=== PATIENT | female | born 1965 ===

== ENCOUNTER 2016-06-04 07:17 | Day surgery (SDC) | payer OTHER ==
[2016-06-04 07:28] VITALS: BMI 33.6
[2016-06-04 08:18] LABS: EOS # 0.3 K/uL (0.0-0.7); HEMATOCRIT 36.9 % (34.0-47.0); LYMPH # 0.2 K/uL (1.0-4.3); LYMPH % 3.8 % (20.0-40.0); MEAN CELL VOLUME 89.6 fl (81.0-99.0); MEAN CORPUSCULAR HEMOGLOBIN 29.8 pg (27.0-31.0); MEAN CORPUSCULAR HGB CONC 33.2 g/dL (33.0-37.0); MEAN PLATELET VOLUME 8.7 fl (7.2-11.7); MONO # 0.3 K/uL (0.0-0.8); NEUT # 5.5 K/uL (1.8-7.0); NRBC % 0.2 % (0.0-0.0); PLATELET COUNT 303 K/uL (130-400); RED CELL DISTRIBUTION WIDTH 13.3 % (11.5-14.5); WHITE BLOOD COUNT 6.4 K/uL (4.8-10.8)
[2016-06-04 08:32] LABS: PARTIAL THROMBOPLASTIN TIME 21.1 SECONDS (23.3-32.5)
[2016-06-04 08:34] LABS: ALB/GLOB RATIO 1.3 (1.0-2.1); ALKALINE PHOSPHATASE 59 U/L (38-126); ALT/SGPT 23 U/L (9-52); AST/SGOT 28 U/L (14-36); BILIRUBIN,TOTAL 0.4 mg/dl (0.2-1.3); BLOOD UREA NITROGEN 15 mg/dl (7-17); CALCIUM 9.7 mg/dL (8.4-10.2); CARBON DIOXIDE 24 mmol/L (22-30); CHLORIDE 103 mmol/L (98-107); GFR AFRICAN-AMERICAN > 60; GLUCOSE,RANDOM 104 mg/dL (65-105); POTASSIUM 4.5 MMOL/L (3.6-5.0); SODIUM 136 mmol/l (132-148); TOTAL PROTEIN 7.2 G/DL (6.3-8.2)
[2016-06-04 09:25] LABS: ERYTHROCYTE SEDIMENTATION RATE 34 mm/hr (0-20)
[2016-06-04] MEDS ORDERED: Lidocaine 1% Inj (20ml) ONE (10:25)
[2016-06-04] MEDS ORDERED: Absorbable Gelatin Sponge Size 12-7 ONE (10:26)
[2016-06-04] MEDS ORDERED: Midazolam 2 MG/2 ML VIAL ONE (10:37)
[2016-06-04 10:56] VITALS: RESP 18
[2016-06-04] MEDS ORDERED: Lactated Ringer's 1,000 ML IV ONE (11:15)
--- NOTE | 2016-06-04 11:43 | PCM.SURG1 ---
Surgeon's Initial Post Op Note - Surgeon's Notes Surgeon: Shivam Time Stamp Assembler: None Type of Anesthesia: Local Pre-Operative Diagnosis: Liver lesions Operative Findings: Liver lesions Post-Operative Diagnosis: Liver lesions Operation Performed: Liver lesion biopsy from the left lobe Specimen/Specimens Removed: 18G core biopsy samples obtained. Estimated Blood Loss: EBL {In ML}: 1 Date of Surgery/Procedure: 06/04/16 Time of Surgery/Procedure: 10:40
--- NOTE | 2016-06-04 11:44 | CP.SDSHP ---
Same Day Surgery H & P - History Proposed Procedure: liver mass biopsy Pre-Op Diagnosis: breast ca with new liver lesions - Allergies Allergies: Allergies No Known Allergies Allergy (Verified 02/28/16 11:17) - Physical Exam Vital Signs: Vital Signs 06/04/16 06/04/16 06/04/16 07:59 10:54 11:15 Temperature 98 F 97.9 F 97.8 F Pulse Rate 74 79 84 Respiratory 20 18 18 Rate Blood Pressure 123/77 129/72 98/61 L O2 Sat by Pulse 98 100 98 Oximetry 06/04/16 11:30 Temperature 97.8 F Pulse Rate 74 Respiratory 18 Rate Blood Pressure 98/55 L O2 Sat by Pulse 99 Oximetry Short Stay Discharge - Short Stay Discharge Admitting Diagnosis/Reason for Visit: MASS LESSION RT AND LT LIVER LOBE/[id number] Disposition: HOME/ ROUTINE Referrals: Kurtis Gonsalez MD [Primary Care Provider] -
[2016-06-04 11:45] LABS: BASOPHIL 1 % (0-2); EOSINOPHIL 8 % (0-7); NEUTROPHIL 53 % (42-75); REACTIVE LYMPHOCYTES 5 % (0-0); TOTAL CELLS COUNTED 100
[2016-06-04 11:49] LABS: NEUT % 86.2 % (50.0-75.0)
[2016-06-04 13:47] VITALS: PULSE 91
[2016-06-04 14:45] VITALS: BP 100/56; TEMP 98.5; O2SAT 97
--- NOTE | 2016-06-05 15:19 | US ---
Ultrasound-guided liver mass biopsy History: 50-year-old female with history of breast carcinoma, with multiple liver lesions. Evaluate for malignancy. Comparison: Comparison is made to a recent ultrasound and CT abdomen pelvis from 05/22/2016. Anesthesia: Moderate sedation provided by attending anesthesiologist Procedure and findings: The procedure was explained to the patient in detail using a senior environmental practice leader. The patient understood the relative risks and benefits and provided written informed consent. The patient was positioned supine on the angiographic table. Continuous physiologic monitoring was provided by the attending anesthesiologist and the interventional radiology nurse. Initial ultrasonography of the liver was performed. Multifocal masses are identified in the right and left lobe of the liver. A left lobe mass was targeted for biopsy. Initial images were stored. The right upper quadrant of the abdomen was prepped and draped in the usual sterile technique. Under real-time ultrasonography guidance, an 18 gauge coaxial needle was introduced into the left lobe of the liver extending up to the mass. Upon confirmation of optimal needle placement with real-time ultrasonogram, images were stored. Subsequently, 3 core biopsy samples of the mass were obtained using an 18 gauge spring loaded biopsy system. Images were stored. The biopsy samples were sent to the department of pathology for analysis. Approximately 5 cc of Gel-Foam slurry was utilized to embolize the tract. No postprocedure hematoma was identified. The patient tolerated the procedure well without any serious adverse events. The patient was transferred to the recovery room in stable condition. Postprocedure orders were given. Impression: Successful ultrasound-guided biopsy of left hepatic lobe mass.
== END 2016-06-04 15:06 | disposition home or self-care (01) ==
LOC: H.OPSURG 07:17
PROVIDERS: ATTEND Family Medicine
DX: R16.0 Hepatomegaly, not elsewhere classified (principal); Z85.3 Personal history of malignant neoplasm of breast

== ENCOUNTER 2016-06-24 07:46 | Day surgery (SDC) | payer OTHER ==
[2016-06-24] MEDS ORDERED: Lidocaine 1% w Epi 1:100,000 Inj ONE (09:34)
[2016-06-24] MEDS ORDERED: Lidocaine 1% Inj (20ml) ONE (09:34)
[2016-06-24] MEDS ORDERED: Midazolam 2 MG/2 ML VIAL ONE (09:52)
[2016-06-24] MEDS ORDERED: Propofol 10 mg/ml Inj (20 ML) ONE (09:52)
--- NOTE | 2016-06-24 09:52 | CP.SDSHP ---
Same Day Surgery H & P - History Proposed Procedure: Port placement Pre-Op Diagnosis: Breast cancer - Allergies Allergies: Allergies No Known Allergies Allergy (Verified 02/28/16 11:17) - Physical Exam Vital Signs: Vital Signs 06/24/16 06/24/16 08:09 08:13 Temperature 98.1 F Pulse Rate 99 H 99 H Respiratory 16 Rate Blood Pressure 128/81 O2 Sat by Pulse 96 Oximetry Mental Status: Alert & Oriented x3 Neuro: WNL Heart: WNL Lungs: WNL - Impression Impression: Pt with breast cancer with metastasis to liver. Plan right IJV port placement. Informed consent obtained. Pt. Evaluated Today:Candidate for Anesthesia & Procedure: Yes (ASA 2 Malampati 3) - Date & Time Date: 06/24/16 Time: 10:40 Short Stay Discharge - Short Stay Discharge Admitting Diagnosis/Reason for Visit: BREAST CA Referrals: Kurtis Gonsalez MD [Primary Care Provider] -
--- NOTE | 2016-06-24 09:54 | PCM.SURG1 ---
Surgeon's Initial Post Op Note - Surgeon's Notes Surgeon: Alex Ortiz MD Adjustment Examiner: NONE Type of Anesthesia: IV Sedation Pre-Operative Diagnosis: Breast cancer Operative Findings: Patent right IJV. Post-Operative Diagnosis: Breast cancer Operation Performed: Right IJV port placement. Port secured in place. Tip on port in the SVC. Specimen/Specimens Removed: NONE Estimated Blood Loss: EBL {In ML}: 5 Blood Products Given: N/A Drains Used: No Drains Post-Op Condition: Fair Date of Surgery/Procedure: 06/24/16 Time of Surgery/Procedure: 10:40
[2016-06-24] MEDS: ceFAZolin 1 GM in Sodium Chloride 0.9% 100 ML IVPB ONE (10:11)
[2016-06-24] MEDS: Lactated Ringer's 1,000 ML IV SCH (10:50)
--- NOTE | 2016-06-24 11:51 | VASCULAR ---
PROCEDURE: Date of procedure: 06/24/2016 Procedure: 1. Placement of a right IJ port catheter with ultrasound and fluoroscopic guidance, CPT 48117 2. Catheter tip confirmation with spot radiograph in the superior vena cava. Medications: The patient was sedated anesthesiologist along with monitoring, Ancef 1 gm, Lidocaine 1% w Epinephrine Total Fluoro time: 14.1 seconds Radiation: 2.09 mGy EBL: 3 cc HISTORY: Breast cancer requiring port for chemotherapy TECHNIQUE: Following informed consent the procedure time-out, patient was placed supine on the interventional table and the right neck and chest were prepped and draped in the usual sterile fashion. Ultrasound showed a compressible right internal jugular vein. After the patient was sedated by the anesthesiologist, the skin anesthetized with 1% lidocaine with epinephrine. Under direct ultrasound guidance, the right internal jugular vein was accessed with micropuncture technique. A guidewire was then advanced under fluoroscopic guidance into the superior vena cava. An image documenting ultrasound guidance for vascular access was permanently saved. The subcutaneous tissue of patient right chest was infiltrated with 1 percent lidocaine with epinephrine. A dermatotomy was made with a 15. Scalpel. The port pocket was then created with blunt dissection using a Kristal clamp. The port pocket was flushed. A port catheter was then tunneled under the skin and out the venotomy site. The port catheter was flushed, advanced through a peel-away sheath, adjusted for length, and attached to the port. The port was placed in the port pocket and was secured with 2-0 SurgiPro sutures. The port was flushed and locked with heparin. The port pocket was then closed with absorbable 4-0 Polysorb sutures. The port pocket and the venotomy site were reprepped with ChloraPrep. Steri-Strips were then applied to the port incision also venotomy site. A sterile dressing was then applied. Final spot radiograph showed the right IJ port catheter with tip of the port catheter in the superior vena cava. A port is functional and ready for use. IMPRESSION: Placement of right IJ port catheter. The tip of the port is in the superior vena cava.
[2016-06-24 11:52] VITALS: RESP 18; O2SAT 99
[2016-06-24 12:26] VITALS: BP 130/67; PULSE 85; TEMP 98
== END 2016-06-24 12:30 | disposition home or self-care (01) ==
LOC: H.OPSURG 07:46
PROVIDERS: ATTEND Specialist
DX: C50.919 Malignant neoplasm of unspecified site of unspecified female breast (principal); E66.9 Obesity, unspecified; I10 Essential (primary) hypertension

== ENCOUNTER → 2016-09-02 | Day surgery (SDC) | payer OTHER, SELFPAY ==
[2016-09-02 10:07] VITALS: BMI 34.2
--- NOTE | 2016-09-02 11:55 | CP.SDSHP ---
Same Day Surgery H & P - History Proposed Procedure: Port check Pre-Op Diagnosis: No blood return from port - Allergies Allergies: Allergies No Known Allergies Allergy (Verified 09/02/16 10:08) - Physical Exam Vital Signs: Vital Signs 09/02/16 10:20 Temperature 98.5 F Pulse Rate 93 H Respiratory 18 Rate Blood Pressure 124/79 O2 Sat by Pulse 98 Oximetry Mental Status: Alert & Oriented x3 Neuro: WNL Heart: WNL Lungs: WNL - Impression Impression: Pt with port and has no blood return. Plan port evaluation. Pt. Evaluated Today:Candidate for Anesthesia & Procedure: No Short Stay Discharge - Short Stay Discharge Admitting Diagnosis/Reason for Visit: BREAST CA Referrals: Kurtis Gonsalez MD [Primary Care Provider] -
--- NOTE | 2016-09-02 12:05 | PCM.SURG1 ---
Surgeon's Initial Post Op Note - Surgeon's Notes Surgeon: Alex Ortiz MD Senior Java Architect: NONE Type of Anesthesia: None Pre-Operative Diagnosis: No blood return from port Operative Findings: Right IJV port in place. SIgnificant fibrin sheet at tip of catheter. Post-Operative Diagnosis: No blood return from port Operation Performed: SVC gram, portogram Specimen/Specimens Removed: None Estimated Blood Loss: EBL {In ML}: 0 Blood Products Given: N/A Drains Used: No Drains Post-Op Condition: Good Date of Surgery/Procedure: 09/02/16 Time of Surgery/Procedure: 12:00
[2016-09-02 12:56] VITALS: BP 134/89; PULSE 98; RESP 20; TEMP 98.4; O2SAT 96
--- NOTE | 2016-09-03 16:09 | VASCULAR ---
PROCEDURE: Date of study: 09/02/2016 Procedure: 1. Portogram. 2. Superior vena cavagram. Medications: None EBL: 0 cc Fluoro time: 19 seconds. Radiation: 2.89 mGy HISTORY: No blood return from right internal jugular vein port. TECHNIQUE: History and physical performed prior to the procedure. Following formed consent the procedure time-out, the patient placed supine on interventional table and the right neck and chest were prepped and draped in the usual sterile fashion. A fluoroscopic image showed a right IJ port catheter placement The port was accessed with a Xie needle using standard sterile technique. Contrast injected through the needle a showed outline of the port and catheter which are intact. There is significant fibrin sheath at the end of the port. A superior vena cavagram was performed that showed no stenosis in the SVC. However, significant fibrin sheath is present the end of the port catheter. The port was flushed and locked with heparin. IMPRESSION: Right internal jugular vein port catheter has significant fibrin sheath at the end of the port which limits blood return. Injection through the port is unremarkable. The port may be used for injection.
== END | disposition home or self-care (01) ==
LOC: H.OPSURG 09:39
PROVIDERS: ATTEND Specialist
DX: C50.919 Malignant neoplasm of unspecified site of unspecified female breast (principal)

== ENCOUNTER 2017-03-20 09:10 | Emergency (ER) | payer SELFPAY ==
[2017-03-20 09:11] VITALS: BMI 32.9
[2017-03-20 09:39] VITALS: RESP 18; TEMP 98.2; O2SAT 99
--- NOTE | 2017-03-20 11:00 | ED PDOC ---
HPI: Chest Pain Time Seen by Provider: 03/20/17 10:17 Chief Complaint (Nursing): Chest Pain History Per: Patient Onset/Duration Of Symptoms: Days (1), Gradual Current Symptoms Are (Timing): Still Present Severity: Mild Quality: Sharp Associated Symptoms: denies: Nausea, Dyspnea, Diaphoresis, Syncope Modifying Factors: None Exacerbating Factors: Movement, Deep Breathing Alleviating Factors: None Additional History Per: Patient Additional Complaint(s): Pt c/o pain under rt breast pain since , pain worse upon movement/deep inspiration. Past Medical History Reviewed: Historical Data, Nursing Documentation, Vital Signs Vital Signs: Last Vital Signs Temp 98.2 F 03/20/17 09:35 Pulse 82 03/20/17 09:35 Resp 18 03/20/17 09:35 BP 124/79 03/20/17 09:35 Pulse Ox 99 03/20/17 11:03 - Medical History PMH: Anemia, Gastritis, HTN, Hypercholesterolemia, Pneumonia Denies: Chronic Kidney Disease - Family History Family History: States: Unknown Family Hx - Living Arrangements Living Arrangements: With Family - Social History Current smoker - smoking cessation education provided: No - Home Medications Home Medications: Ambulatory Orders Medication Instructions Recorded Dexlansoprazole [Dexilant] 60 mg PO DAILY 06/24/16 Ezetimibe [Zetia] 10 mg PO DAILY 06/24/16 Metoprolol Succinate [Toprol XL] 25 mg PO DAILY 06/24/16 Calcium Carbonate/Vitamin D3 1 each PO BID 06/25/16 [Calcium 600 + Vit D Softgel] Amoxicillin/Clavulanate [Augmentin 1 tab PO BID 7 Days tab 03/20/17 875 MG-125 MG] Azithromycin 250 mg PO DAILY #4 tab 03/20/17 oxyCODONE/Acetaminophen [Percocet 1 ea PO QID PRN #12 tab 03/20/17 5/325 mg Tab] - Allergies Allergies/Adverse Reactions: Allergies Allergy/AdvReac Type Severity Reaction Status Date / Time No Known Allergies Allergy Verified 03/20/17 09:35 JOSELINE Risk Score for UA/NSTEMI - JOSELINE Risk Score Age > 64: NO 3 or more CAD Risk Factors: NO Known CAD (Stenosis greater than 50%): NO Aspirin use in past 7 days: NO Severe Angina: NO EKG ST changes greater than 0.5mm: NO Positive Cardiac Marker: NO JOSELINE Score: 0 Risk %: 5% Review of Systems ROS Statement: Except As Marked, All Systems Reviewed And Found Negative Constitutional: Negative for: Fever, Chills Cardiovascular: Positive for: Chest Pain. Negative for: Palpitations, Edema, Light Headedness Respiratory: Negative for: Cough, Shortness of Breath Gastrointestinal: Negative for: Nausea, Vomiting, Abdominal Pain Musculoskeletal: Negative for: Neck Pain Neurological: Negative for: Weakness, Numbness Physical Exam - Reviewed Nursing Documentation Reviewed: Yes - Physical Exam Appears: Positive for: Uncomfortable Head Exam: Positive for: ATRAUMATIC, NORMAL INSPECTION, NORMOCEPHALIC Skin: Positive for: Normal Color, Warm, Dry Eye Exam: Positive for: Normal appearance, EOMI ENT: Positive for: Normal ENT Inspection Neck: Positive for: Normal, Painless ROM, Supple Cardiovascular/Chest: Positive for: Regular Rate, Rhythm, Chest Non Tender. Negative for: Edema, Gallop, Murmur, Bradycardia, Tachycardia Respiratory: Positive for: Normal Breath Sounds. Negative for: Decreased Breath Sounds, Accessory Muscle Use, Crackles, Rales, Rhonchi, Stridor, Wheezing , Respiratory Distress Pulses-Radial (L): 2+ Pulses-Radial (R): 2+ Gastrointestinal/Abdominal: Positive for: Normal Exam, Bowel Sounds, Soft. Negative for: Tenderness Back: Positive for: Normal Inspection. Negative for: L CVA Tenderness, R CVA Tenderness, Vertebral Tenderness Extremity: Positive for: Normal ROM. Negative for: Tenderness, Pedal Edema, Calf Tenderness, Deformity, Swelling Neurologic/Psych: Positive for: Alert, unpaid intern II-XII, Oriented. Negative for: Motor/Sensory Deficits, Aphasia, Facial Droop - Laboratory Results Result Diagrams: 03/20/17 10:45 03/20/17 10:45 - ECG ECG: Positive for: Interpreted By Ne ECG Rhythm: Positive for: Normal QRS, Normal ST Segment, Sinus Rhythm (rate of 78). Negative for: ST/T Changes Interpretation Of Abn EKG: no evidence of ischemia O2 Sat by Pulse Oximetry: 99 Pulse Ox Interpretation: Normal - Radiology X-Ray: Interpreted by Me X-Ray Interpretation: No Acute Disease - Progress ED Course And Treament: advise antibiotics and close f/u with pmd or in medical clinic Re-evaluation Time: 14:14 Condition: Improved Disposition - Clinical Impression Clinical Impression: Pneumonia - Patient ED Disposition Is Patient to be Admitted: No Counseled Patient/Family Regarding: Studies Performed, Diagnosis, Need For Followup, Rx Given - Disposition Referrals: at [facility] [Outside] (2 to 3 days) Disposition: Routine/Home Disposition Time: 14:15 Condition: GOOD Prescriptions: Amoxicillin/Clavulanate [Augmentin 875 MG-125 MG] 1 tab PO BID 7 Days tab Azithromycin 250 mg PO DAILY #4 tab oxyCODONE/Acetaminophen [Percocet 5/325 mg Tab] 1 ea PO QID PRN #12 tab PRN Reason: Pain, Moderate (4-7) Instructions: Community Acquired Pneumonia (ED) Forms: [facility] (Congolese), [facility] (Maori) Print Language: ENGLISH
[2017-03-20 11:10] LABS: BASO % 0.9 % (0.0-2.0); EOS # 0.2 K/uL (0.0-0.7); EOS % 5.8 % (0.0-4.0); HEMOGLOBIN 11.8 g/dL (12.0-16.0); LYMPH # 1.2 K/uL (1.0-4.3); LYMPH % 35.4 % (20.0-40.0); MEAN CELL VOLUME 92.6 fl (81.0-99.0); MEAN CORPUSCULAR HEMOGLOBIN 31.4 pg (27.0-31.0); MEAN CORPUSCULAR HGB CONC 33.9 g/dL (33.0-37.0); MEAN PLATELET VOLUME 7.6 fl (7.2-11.7); MONO # 0.7 K/uL (0.0-0.8); MONO % 21.5 % (0.0-10.0); NEUT # 1.2 K/uL (1.8-7.0); NEUT % 36.4 % (50.0-75.0); NRBC % 0.4 % (0.0-0.0); RBC 3.76 Mil/uL (3.80-5.20); WHITE BLOOD COUNT 3.4 K/uL (4.8-10.8)
[2017-03-20 11:25] LABS: PARTIAL THROMBOPLASTIN TIME 28.8 Seconds (25.6-37.1); PROTHROMBIN TIME 11.4 Seconds (9.8-13.1)
--- NOTE | 2017-03-20 11:25 | RAD ---
HISTORY: cp COMPARISON: Frontal chest radiograph 09/24/2016. TECHNIQUE: Chest PA and lateral FINDINGS: LUNGS: Stable limited linear atelectasis or fibrosis in the inferior right lung zone overall history volume appearing diminished in the interval. Increased density seen the right base deep to the well portion of the MediPort suspicious for potential limited early infiltrate here. MediPort positioning is unchanged. Surgical clips oral seen the left axilla summation status post left breast surgery apparently. PLEURA: No significant pleural effusion identified. No pneumothorax apparent. CARDIOVASCULAR: Normal. OSSEOUS STRUCTURES: No significant abnormalities. VISUALIZED UPPER ABDOMEN: Normal. OTHER FINDINGS: None. IMPRESSION: Borderline developing infiltrate right base. Left chest is clear. History volume is diminished. Continued clinical and radiographic monitor advised.
[2017-03-20 11:33] LABS: B-TYPE NATRIURETIC PEPTIDE 29.2 pg/ml (0-900)
[2017-03-20 11:42] LABS: ALB/GLOB RATIO 1.2 (1.0-2.1); ALBUMIN 3.6 g/dL (3.5-5.0); ALT/SGPT 36 U/L (9-52); AST/SGOT 29 U/L (14-36); BLOOD UREA NITROGEN 13 mg/dl (7-17); CALCIUM 9.2 mg/dL (8.4-10.2); GFR AFRICAN-AMERICAN > 60; GFR NON-AFRICAN AMERICAN > 60; LIPASE 30 U/L (23-300); MAGNESIUM 1.9 MG/DL (1.6-2.3)
[2017-03-20 11:45] LABS: PLATELET COUNT 293 K/uL (130-400)
[2017-03-20] MEDS ORDERED: Sodium Chloride 0.9% 50 ML IV ONE (12:48)
[2017-03-20] MEDS ORDERED: Iohexol 300 100 ML IJ ONE (12:48)
[2017-03-20 13:01] LABS: EOSINOPHIL 6 % (0-7); LYMPHOCYTE 32 % (20-50); MONOCYTE 21 % (0-10); NEUTROPHIL 37 % (42-75); PLATELET ESTIMATE NORMAL (NORMAL); REACTIVE LYMPHOCYTES 4 % (0-0); TOTAL CELLS COUNTED 100
[2017-03-20 13:03] LABS: ANISOCYTOSIS SLIGHT; LARGE PLATELETS PRESENT
--- NOTE | 2017-03-20 14:00 | CT ---
CTA chest PE protocol Indication: Rule out PE, chest pain Technique: Contiguous axial images were obtained through the chest with intravenous contrast enhancement. Sagittal and coronal reconstructions were generated and reviewed. This CT exam was performed using 1 or more of the falling dose reduction techniques: Automated exposure control, adjustment of the MAA and/or kV according to patient size, and/or use of iterative reconstruction technique. IV Contrast: 90 mL Omnipaque 300 Radiation dose (DLP): 422.92 MGy-cm. Comparison: Chest x-ray performed 03/20/17, CT of the chest abdomen pelvis performed 10/29/16 Findings: Right-sided MediPort extends to the SVC. Visualized portions of the inferior thyroid gland appear unremarkable. The mediastinal and hilar vascular structures appear within normal limits. The heart appears within normal limits of size. No large central or segmental pulmonary embolus evident. No focal consolidation. Pleural thickening or fluid is noted along the right minor and major fissure including possible tiny loculated component inferiorly. No significant pleural effusion identified. No visible pneumothorax. No suspicious pulmonary nodules measuring greater than 5 mm. Limited visualized portions of the upper abdomen demonstrates heterogeneous appearance of the liver. No acute osseous abnormality is detected. Impression: Pleural thickening or fluid is noted along the right minor and major fissure including possible tiny loculated component inferiorly. Please note hepatic metastatic disease demonstrated on CT performed 10/29/16 is not adequately assessed on this examination. Hepatic parenchyma appears heterogeneous.
[2017-03-20] MEDS ORDERED: Oxycodone/Acetaminophen 5/325 mg Tab ONE (14:17)
[2017-03-20] MEDS ORDERED: Oxycodone/Acetaminophen 5/325 mg Tab PO STA (14:28)
[2017-03-20 15:37] VITALS: BP 126/80; PULSE 80
--- NOTE | 2017-03-21 12:09 | CARD ---
APPROVED REPORT EKG Measurement Heart [id number] <Conclusion> Normal sinus rhythm Normal ECG
== END 2017-03-20 15:37 | disposition home or self-care (01) ==
LOC: H.ER 09:10
DX: J18.9 Pneumonia, unspecified organism (principal); E78.00 Pure hypercholesterolemia, unspecified; I10 Essential (primary) hypertension; C78.7 Secondary malignant neoplasm of liver and intrahepatic bile duct
CPT/HCPCS: 71046; 71275; 80053; 83690; 83735; 83880; 84484; 85025; 85378; 85610; 85730; 93005; 96374; 99283; J0696; J2270; Q9967

== ENCOUNTER 2017-03-22 14:48 | Emergency (ER) | payer SELFPAY ==
[2017-03-22 14:48] VITALS: BMI 32.9
[2017-03-22 15:16] VITALS: RESP 16
[2017-03-22] MEDS ORDERED: Morphine 4 MG/ML VIAL ONE (16:36)
--- NOTE | 2017-03-22 16:44 | ED PDOC ---
HPI: Chest Pain Time Seen by Provider: 03/22/17 15:27 Chief Complaint (Nursing): Abdominal Pain Chief Complaint (Provider): Chest Pain History Per: Patient History/Exam Limitations: no limitations Onset/Duration Of Symptoms: Days (3 days ago) Current Symptoms Are (Timing): Still Present Additional Complaint(s): 51 yo female with a known history of breast cancer, presents to the ED again after being seen 2 days prior complaining of continued pain under the right breast, onset of 3 days. After a chest x-ray was performed in the first visit, the patient was diagnosed with pneumonia and sent home with antibiotics and Percocet for pain. Patient also states that pain worsens with movement of right arm, but she stopped taking the Percocet prescribed because it was making her nauseous. Of note, underwent a treatment of chemo for her breast cancer and it is known that patient's cancer metastasized to the liver. PCP: Kurtis Gonsalez Past Medical History Reviewed: Historical Data, Nursing Documentation, Vital Signs Vital Signs: Last Vital Signs Temp 98.4 F 03/22/17 15:12 Pulse 81 03/22/17 15:12 Resp 16 03/22/17 15:12 BP 131/56 L 03/22/17 15:12 Pulse Ox 99 03/22/17 20:56 - Medical History PMH: Anemia, Gastritis, HTN, Hypercholesterolemia, Pneumonia Denies: Chronic Kidney Disease - Surgical History Other surgeries: left mastectomy in 2003 - Family History Family History: States: Unknown Family Hx - Social History Current smoker - smoking cessation education provided: No Ex-Smoker (has not smoked in the last 12 months): No Alcohol: None Drugs: Denies - Home Medications Home Medications: Ambulatory Orders Medication Instructions Recorded Dexlansoprazole [Dexilant] 60 mg PO DAILY 06/24/16 Ezetimibe [Zetia] 10 mg PO DAILY 06/24/16 Metoprolol Succinate [Toprol XL] 25 mg PO DAILY 06/24/16 Calcium Carbonate/Vitamin D3 1 each PO BID 06/25/16 [Calcium 600 + Vit D Softgel] Amoxicillin/Clavulanate [Augmentin 1 tab PO BID 7 Days tab 03/20/17 875 MG-125 MG] Azithromycin 250 mg PO DAILY #4 tab 03/20/17 oxyCODONE/Acetaminophen [Percocet 1 ea PO QID PRN #12 tab 03/20/17 5/325 mg Tab] - Allergies Allergies/Adverse Reactions: Allergies Allergy/AdvReac Type Severity Reaction Status Date / Time No Known Allergies Allergy Verified 03/22/17 15:12 Review of Systems ROS Statement: Except As Marked, All Systems Reviewed And Found Negative Cardiovascular: Positive for: Chest Pain (under right breast) Gastrointestinal: Positive for: Nausea (from percocet ). Negative for: Abdominal Pain Physical Exam - Reviewed Nursing Documentation Reviewed: Yes Vital Signs Reviewed: Yes - Physical Exam Appears: Positive for: Non-toxic, No Acute Distress Head Exam: Positive for: ATRAUMATIC, NORMOCEPHALIC Skin: Positive for: Normal Color, Warm Eye Exam: Positive for: Normal appearance, EOMI, PERRL ENT: Positive for: Normal ENT Inspection Neck: Positive for: Normal, Painless ROM, Supple Cardiovascular/Chest: Positive for: Regular Rate, Rhythm. Negative for: Chest Non Tender (tenderness to right anterior lower rib area; no point tenderness), Murmur Respiratory: Positive for: Normal Breath Sounds Gastrointestinal/Abdominal: Positive for: Normal Exam, Soft. Negative for: Tenderness Back: Positive for: Normal Inspection Extremity: Positive for: Normal ROM. Negative for: Pedal Edema, Deformity Neurologic/Psych: Positive for: Alert, Oriented. Negative for: Motor/Sensory Deficits - ECG O2 Sat by Pulse Oximetry: 99 (RA) Pulse Ox Interpretation: Normal Medical Decision Making Medical Decision Making: Time: 16:03 Impression: Chest Wall Pain Plan: --Right Ribs and PA Chest Xray --Morpine 2mg IV --Reevaluation Time: 17:03 Right Ribs X-Ray FINDINGS: RIGHT RIBS: No appreciable rib fractures are noted on the right. On the frontal view of the chest no left rib fractures are seen. LUNGS: There is mild interval improvement in aeration at the right lung base. Right Port-A-Cath is stable. PLEURA: No pneumothorax or pleural fluid. CARDIOVASCULAR: Normal sized heart. No pulmonary vascular congestion. OTHER FINDINGS: None. IMPRESSION: No appreciable right rib fracture. Mild interval improvement aeration. No pneumothorax. If symptoms persist bone scan may prove helpful. Time: 21:05 CT Abd and Pelvis Findings: Limitations: Motion artifact - mild. Lower thorax: LEFT mastectomy. Mild atelectasis/scarring. ABDOMEN: Liver: Fatty infiltration. Several enhancing/relatively hyperdense lesions, indeterminate by CT criteria, grossly unchanged. Gallbladder and bile ducts: No calcified stones. No ductal dilation. Pancreas: No ductal dilation. No mass. Spleen: No splenomegaly. Adrenals: No mass. Kidneys and ureters: Mild scarring right kidney. Few too small to characterize lesions within kidneys. No hydronephrosis. Stomach and bowel: No definite mural thickening. No obstruction. Appendix: Normal caliber. No inflammation. PELVIS: Bladder: Unremarkable. Reproductive: Unremarkable as visualized. ABDOMEN and PELVIS: Intraperitoneal space: No significant fluid collection. No free air. Bones/joints: Schmorl's nodes at few levels. No acute fracture. Soft tissues: Unremarkable. Vasculature: Mild atherosclerotic disease. No aneurysm. Lymph nodes: Mild enlarged lymph node within upper abdomen, grossly stable. IMPRESSION: 1. Findings compatible with hepatic metastases, grossly unchanged. 2. Incidental/non-acute findings are described above. Scribe Attestation: Documented by Charles Dave and Bg Esquivel acting as a scribe for Francie Rodas MD. Provider Scribe Attestation: All medical record entries made by the Scribe were at my direction and personally dictated by me. I have reviewed the chart and agree that the record accurately reflects my personal performance of the history, physical exam, medical decision making, and the department course for this patient. I have also personally directed, reviewed, and agree with the discharge instructions and disposition. Disposition - Disposition Forms: [employer] (Fijian)
--- NOTE | 2017-03-22 17:05 | RAD ---
PROCEDURE: Radiographs of the Chest and Right Ribs. HISTORY: R lower anterior rib pain, breast CA COMPARISON: 03/20/2017 TECHNIQUE: Frontal radiograph of the chest and multiple oblique radiographs of the right ribs were obtained. FINDINGS: RIGHT RIBS: No appreciable rib fractures are noted on the right. On the frontal view of the chest no left rib fractures are seen. LUNGS: There is mild interval improvement in aeration at the right lung base. Right Port-A-Cath is stable. PLEURA: No pneumothorax or pleural fluid. CARDIOVASCULAR: Normal sized heart. No pulmonary vascular congestion. OTHER FINDINGS: None. IMPRESSION: No appreciable right rib fracture. Mild interval improvement aeration. No pneumothorax. If symptoms persist bone scan may prove helpful.
--- NOTE | 2017-03-22 21:15 | CT ---
EXAM: CT Abdomen and Pelvis With Intravenous Contrast CLINICAL HISTORY: 51 years old, female; Pain; Abdominal pain; Other: Ruq; Additional info: Ruq pain, liver mets TECHNIQUE: Axial computed tomography images of the abdomen and pelvis with intravenous contrast. All CT scans at this facility use one or more dose reduction techniques, viz.: automated exposure control; ma/kV adjustment per patient size (including targeted exams where dose is matched to indication; i.e. head); or iterative reconstruction technique. Coronal and sagittal reformatted images were created and reviewed. CONTRAST: 98 mL of [id number] administered intravenously. COMPARISON: CT - CHEST,ABD,PEL W/IV PO CONTRAST 2016-10-29 11:05 FINDINGS: Limitations: Motion artifact - mild. Lower thorax: LEFT mastectomy. Mild atelectasis/scarring. ABDOMEN: Liver: Fatty infiltration. Several enhancing/relatively hyperdense lesions, indeterminate by CT criteria, grossly unchanged. Gallbladder and bile ducts: No calcified stones. No ductal dilation. Pancreas: No ductal dilation. No mass. Spleen: No splenomegaly. Adrenals: No mass. Kidneys and ureters: Mild scarring right kidney. Few too small to characterize lesions within kidneys. No hydronephrosis. Stomach and bowel: No definite mural thickening. No obstruction. Appendix: Normal caliber. No inflammation. PELVIS: Bladder: Unremarkable. Reproductive: Unremarkable as visualized. ABDOMEN and PELVIS: Intraperitoneal space: No significant fluid collection. No free air. Bones/joints: Schmorl's nodes at few levels. No acute fracture. Soft tissues: Unremarkable. Vasculature: Mild atherosclerotic disease. No aneurysm. Lymph nodes: Mild enlarged lymph node within upper abdomen, grossly stable. IMPRESSION: 1. Findings compatible with hepatic metastases, grossly unchanged. 2. Incidental/non-acute findings are described above.
[2017-03-22 21:39] VITALS: BP 109/70; PULSE 92; TEMP 98.2; O2SAT 98
== END 2017-03-22 21:44 | disposition home or self-care (01) ==
LOC: H.ER 14:48
DX: C50.819 Malignant neoplasm of overlapping sites of unspecified female breast (principal); C78.7 Secondary malignant neoplasm of liver and intrahepatic bile duct; E78.00 Pure hypercholesterolemia, unspecified; I10 Essential (primary) hypertension; Z85.3 Personal history of malignant neoplasm of breast
CPT/HCPCS: 71101; 74177; 96374; 99283; J2270; Q9967

== ENCOUNTER 2017-07-09 12:14 | Emergency (ER) | payer SELFPAY ==
[2017-07-09 12:15] VITALS: BMI 36.6
[2017-07-09] MEDS ORDERED: Sodium Chloride 0.9% 1,000 ML IV STA (12:32)
--- NOTE | 2017-07-09 12:40 | ED PDOC ---
Syncope/Near Syncope/Dizziness Time Seen by Provider: 07/09/17 12:22 Chief Complaint (Nursing): Dizziness/Lightheaded Chief Complaint (Provider): room spinning, nausea/vomiting History Per: Family History/Exam Limitations: language barrier Additional Complaint(s): 51 year old female accompanied by her family presents with complaints of room spinning, nausea and vomiting since this morning. She denies any recent illness , no fevers or chills, changes in vision or photophobia, no abdominal pain or diarrhea. Significant medical history of breast CA with mestasis, undergoing chemotherapy. She has hx of brain tumor, s/p radiation some years back. Received Zometa 3 days ago. 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 Past Medical History Vital Signs: Last Vital Signs Temp 96.0 F L 07/09/17 12:16 Pulse 95 H 07/09/17 12:16 Resp 16 07/09/17 12:16 BP 104/80 07/09/17 12:16 Pulse Ox 97 07/09/17 12:16 - Medical History PMH: Anemia, Gastritis, HTN, Hypercholesterolemia, Pneumonia Denies: Chronic Kidney Disease Other PMH: breast cancer - Family History Family History: States: Unknown Family Hx - Home Medications Home Medications: Ambulatory Orders Medication Instructions Recorded Dexlansoprazole [Dexilant] 60 mg PO DAILY 06/24/16 Ezetimibe [Zetia] 10 mg PO DAILY 06/24/16 Metoprolol Succinate [Toprol XL] 25 mg PO DAILY 06/24/16 Calcium Carbonate/Vitamin D3 1 each PO BID 06/25/16 [Calcium 600 + Vit D Softgel] Acetaminophen with Codeine 1 tab PO Q6H PRN #10 tab 03/22/17 [Tylenol with Codeine No. 3 300 mg-30 mg] Letrozole [Femara] 2.5 mg PO DAILY 04/07/17 Metoclopramide HCl [Reglan] 5 mg PO TID PRN 05/04/17 Capecitabine [Capecitabine] 1 tab PO Q12 07/06/17 Meclizine [Meclizine*] 25 mg PO Q8 PRN #12 tab 07/09/17 Ondansetron ODT [Zofran ODT] 4 mg PO Q6 PRN #12 odt 07/09/17 - Allergies Allergies/Adverse Reactions: Allergies Allergy/AdvReac Type Severity Reaction Status Date / Time No Known Allergies Allergy Verified 07/09/17 12:16 Review of Systems Constitutional: Negative for: Fever, Chills, Sweats, Weakness Eyes: Negative for: Pain, Vision Change ENT: Negative for: Ear Discharge, Nose Discharge Cardiovascular: Negative for: Chest Pain, Palpitations Respiratory: Positive for: Shortness of Breath. Negative for: Cough Gastrointestinal: Positive for: Nausea, Vomiting. Negative for: Abdominal Pain , Diarrhea, Constipation Genitourinary Female: Negative for: Dysuria, Frequency, Incontinence Skin: Negative for: Rash Neurological: Positive for: Dizziness. Negative for: Altered Mental Status Physical Exam - Physical Exam Appears: Positive for: Uncomfortable Head Exam: Positive for: ATRAUMATIC, NORMAL INSPECTION, NORMOCEPHALIC Skin: Positive for: Normal Color, Warm, DRY Eye Exam: Positive for: EOMI, Normal appearance, PERRL Neck: Positive for: Normal Cardiovascular/Chest: Positive for: Regular Rate, Rhythm, Tachycardia. Negative for: JVD, Murmur, Bradycardia Respiratory: Positive for: Normal Breath Sounds. Negative for: Rales, Rhonchi, Wheezing, Respiratory Distress Gastrointestinal/Abdominal: Positive for: Normal Exam, Soft. Negative for: Tenderness Extremity: Negative for: Tenderness, Pedal Edema Neurologic/Psych: Positive for: Alert. Negative for: Facial Droop - Laboratory Results Result Diagrams: 07/09/17 13:10 07/09/17 18:10 - ECG O2 Sat by Pulse Oximetry: 97 - Progress ED Course And Treament: 51 year old female with complaints of nausea vomiting and sensation that the room is spinning since this morning. Significant medical history for breast CA with mets, hx of brain tumor s/p radiation. currently on chemotherapy. Rule out cerebral edema, hypercalcemia --CBC --CMP --Zofran --CT head Case d/w Dr. Russell Disposition - Clinical Impression Clinical Impression: Dizziness, Vomiting, Dizziness of unknown cause - Disposition Disposition Time: 19:45 Condition: STABLE Additional Instructions: Followup with Dr Shrestha for further testing Prescriptions: Meclizine [Meclizine*] 25 mg PO Q8 PRN #12 tab PRN Reason: Nausea/Vomiting Ondansetron ODT [Zofran ODT] 4 mg PO Q6 PRN #12 odt PRN Reason: Nausea/Vomiting Instructions: Nausea and Vomiting, Adult (DC), Dizziness, Nonvertigo, (DC) Forms: [employer] (Tajik)
[2017-07-09 13:39] LABS: BASO % 0.3 % (0.0-2.0); EOS # 0.2 K/uL (0.0-0.7); EOS % 3.3 % (0.0-4.0); HEMOGLOBIN 13.5 g/dL (12.0-16.0); LYMPH # 2.1 K/uL (1.0-4.3); LYMPH % 31.3 % (20.0-40.0); MEAN CELL VOLUME 92.3 fl (81.0-99.0); MEAN CORPUSCULAR HEMOGLOBIN 31.7 pg (27.0-31.0); MEAN CORPUSCULAR HGB CONC 34.3 g/dL (33.0-37.0); MEAN PLATELET VOLUME 8.8 fl (7.2-11.7); MONO # 0.5 K/uL (0.0-0.8); MONO % 7.5 % (0.0-10.0); NEUT # 3.8 K/uL (1.8-7.0); NEUT % 57.6 % (50.0-75.0); NRBC % 0.2 % (0.0-0.0); RBC 4.26 Mil/uL (3.80-5.20); WHITE BLOOD COUNT 6.7 K/uL (4.8-10.8)
--- NOTE | 2017-07-09 14:12 | CT ---
PROCEDURE: CT HEAD WITHOUT CONTRAST. HISTORY: hx malignancy, now dizzy/vomit r/o cerebral edema COMPARISON: None available. TECHNIQUE: Axial computed tomography images were obtained through the head/brain without intravenous contrast. Radiation dose: Total exam DLP = 732.68 mGy-cm. This CT exam was performed using one or more of the following dose reduction techniques: Automated exposure control, adjustment of the mA and/or kV according to patient size, and/or use of iterative reconstruction technique. FINDINGS: HEMORRHAGE: No intracranial hemorrhage. BRAIN: Mild hyperdensity at the left occipital cortex is again appreciated as well as local encephalomalacia which is not simply changed changed in the interval compared to prior head CT dated 04/01/2017. The remaining parenchyma is unremarkable above and below the tentorium including the brainstem. VENTRICLES: Unremarkable. No hydrocephalus. CALVARIUM: Unremarkable. PARANASAL SINUSES: Unremarkable as visualized. No significant inflammatory changes. MASTOID AIR CELLS: Unremarkable as visualized. No inflammatory changes. OTHER FINDINGS: None. IMPRESSION: No definite acute intracranial findings or chronic encephalomalacia identified in the left occipital lobe once again as compared to prior head CT 04/01/2017. Better characterization can provided by MRI with without contrast if clinically warranted. This can be performed on elective basis unless required acutely. Further clinical correlation is recommended.
[2017-07-09 17:55] LABS: SQUAMOUS EPITHIAL < 1 /hpf (0-5); URINE BACTERIA RARE (<OCC); URINE BILIRUBIN NEGATIVE (NEGATIVE); URINE BLOOD NEGATIVE (NEGATIVE); URINE CLARITY CLEAR (Clear); URINE COLOR YELLOW (YELLOW); URINE GLUCOSE (UA) NEG (Normal); URINE LEUKOCYTE ESTERASE NEG Leu/uL (Negative); URINE PROTEIN NEGATIVE (NEGATIVE); URINE UROBILINOGEN 0.2-1.0 mg/dL (0.2-1.0)
[2017-07-09 18:37] LABS: ALB/GLOB RATIO 1.2 (1.0-2.1); ALBUMIN 3.7 g/dL (3.5-5.0); ALT/SGPT 39 U/L (9-52); AST/SGOT 35 U/L (14-36); BLOOD UREA NITROGEN 11 mg/dl (7-17); CALCIUM 9.1 mg/dL (8.4-10.2); GFR AFRICAN-AMERICAN > 60; GFR NON-AFRICAN AMERICAN > 60
[2017-07-09 18:59] VITALS: RESP 18; TEMP 98.9
[2017-07-10 03:30] VITALS: BP 132/76; PULSE 87
[2017-07-12 22:22] VITALS: O2SAT 97
== END 2017-07-09 19:45 | disposition home or self-care (01) ==
LOC: H.ER 12:14
DX: R11.2 Nausea with vomiting, unspecified (principal); R42 Dizziness and giddiness; E78.00 Pure hypercholesterolemia, unspecified; I10 Essential (primary) hypertension; Z85.3 Personal history of malignant neoplasm of breast
CPT/HCPCS: 70450; 80053; 81003; 85025; 96374; 96376; 99285; J2405; J7040

== ENCOUNTER 2017-07-10 05:12 | Observation (INO) | payer SELFPAY ==
[2017-07-10 05:12] VITALS: BMI 36.6
[2017-07-10] MEDS ORDERED: Sodium Chloride 0.9% 1,000 ML IV STA (06:14)
--- NOTE | 2017-07-10 06:41 | ED PDOC ---
HPI:Nausea, Vomiting, Diarrhea Time Seen by Provider: 07/10/17 05:49 Chief Complaint (Nursing): GI Problem History Per: Patient History/Exam Limitations: no limitations Onset/Duration Of Symptoms: Hrs Current Symptoms Are (Timing): Still Present Additional Complaint(s): Hx of breast CA with metastases returns to ER for intractable dizziness, nausea , and vomiting. States that she was in ER last night and improved with medications but upon returning home, she started feeling the same and states she vomited non-bloody, non-bilious vomits mostly of water, around 6-8 episodes. Denies diarrhea or abnormal stools, states her urine has been normal. Denies abdominal pain, headache, fevers, chills, or any other symptoms. No chest pain or shortness of breath. Past Medical History Reviewed: Historical Data, Nursing Documentation Vital Signs: Last Vital Signs Temp 98.6 F 07/10/17 05:31 Pulse 87 07/10/17 05:31 Resp 17 07/10/17 05:31 BP 122/80 07/10/17 05:31 Pulse Ox 100 07/10/17 05:31 - Medical History PMH: Anemia, Gastritis, HTN, Hypercholesterolemia, Pneumonia Denies: Chronic Kidney Disease - Family History Family History: States: Unknown Family Hx - Home Medications Home Medications: Ambulatory Orders Medication Instructions Recorded Dexlansoprazole [Dexilant] 60 mg PO DAILY 06/24/16 Ezetimibe [Zetia] 10 mg PO DAILY 06/24/16 Metoprolol Succinate [Toprol XL] 25 mg PO DAILY 06/24/16 Calcium Carbonate/Vitamin D3 1 each PO BID 06/25/16 [Calcium 600 + Vit D Softgel] Acetaminophen with Codeine 1 tab PO Q6H PRN #10 tab 03/22/17 [Tylenol with Codeine No. 3 300 mg-30 mg] Letrozole [Femara] 2.5 mg PO DAILY 04/07/17 Metoclopramide HCl [Reglan] 5 mg PO TID PRN 05/04/17 Capecitabine [Capecitabine] 1 tab PO Q12 07/06/17 Meclizine [Meclizine*] 25 mg PO Q8 PRN #12 tab 07/09/17 Ondansetron ODT [Zofran ODT] 4 mg PO Q6 PRN #12 odt 07/09/17 - Allergies Allergies/Adverse Reactions: Allergies Allergy/AdvReac Type Severity Reaction Status Date / Time No Known Allergies Allergy Verified 07/09/17 12:16 Review of Systems ROS Statement: Except As Marked, All Systems Reviewed And Found Negative Gastrointestinal: Positive for: Nausea, Vomiting. Negative for: Abdominal Pain , Diarrhea, Constipation Neurological: Positive for: Dizziness Physical Exam - Reviewed Nursing Documentation Reviewed: Yes - Physical Exam Appears: Positive for: Well, Non-toxic, Uncomfortable (Active Vomiting) Head Exam: Positive for: ATRAUMATIC, NORMAL INSPECTION, NORMOCEPHALIC Skin: Positive for: Normal Color, Warm, DRY Eye Exam: Positive for: EOMI, Normal appearance, PERRL ENT: Positive for: Normal ENT Inspection Neck: Positive for: Normal, Painless ROM Cardiovascular/Chest: Positive for: Regular Rate, Rhythm Respiratory: Positive for: CNT, Normal Breath Sounds Gastrointestinal/Abdominal: Positive for: Normal Exam, Soft Back: Positive for: Normal Inspection Extremity: Positive for: Normal ROM Neurologic/Psych: 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 Negative for: Motor/Sensory Deficits, Aphasia, Facial Droop - ECG O2 Sat by Pulse Oximetry: 100 Pulse Ox Interpretation: Normal Medical Decision Making Medical Decision Making: A/P: Hx of HLD, breast CA with mets returning to ER for intractable nausea and vomiting -vitals stable, patient appears uncomfortable -spoke with Dr. Gonsalez who agrees with admission for intractable nausea, vomiting, and dizziness -will page Dr. Eric Shrestha to let her know as well -patient to receive fluids, zofran, and re-check labs for electrolyte abnormalities Disposition - Clinical Impression Clinical Impression: Intractable nausea and vomiting, Dizziness - Patient ED Disposition Is Patient to be Admitted: Yes - Disposition Disposition Time: 06:46 Condition: FAIR Forms: [facility] (Yoruba)
[2017-07-10 07:11] LABS: BASO % 0.6 % (0.0-2.0); EOS # 0.2 K/uL (0.0-0.7); EOS % 2.2 % (0.0-4.0); HEMOGLOBIN 12.6 g/dL (12.0-16.0); LYMPH # 1.7 K/uL (1.0-4.3); LYMPH % 24.9 % (20.0-40.0); MEAN CORPUSCULAR HEMOGLOBIN 31.2 pg (27.0-31.0); MEAN CORPUSCULAR HGB CONC 33.5 g/dL (33.0-37.0); MEAN PLATELET VOLUME 7.9 fl (7.2-11.7); MONO # 0.6 K/uL (0.0-0.8); MONO % 8.3 % (0.0-10.0); NEUT # 4.5 K/uL (1.8-7.0); NRBC % 0.1 % (0.0-0.0); RBC 4.05 Mil/uL (3.80-5.20); RED CELL DISTRIBUTION WIDTH 15.1 % (11.5-14.5)
[2017-07-10 07:18] LABS: ALB/GLOB RATIO 1.2 (1.0-2.1); ALBUMIN 3.6 g/dL (3.5-5.0); ALT/SGPT 37 U/L (9-52); AST/SGOT 35 U/L (14-36); BLOOD UREA NITROGEN 11 mg/dl (7-17); CALCIUM 8.7 mg/dL (8.4-10.2); GFR AFRICAN-AMERICAN > 60; GFR NON-AFRICAN AMERICAN > 60
[2017-07-10 07:41] LABS: SQUAMOUS EPITHIAL 1 /hpf (0-5); URINE BILIRUBIN NEGATIVE (NEGATIVE); URINE BLOOD SMALL (NEGATIVE); URINE CLARITY CLEAR (Clear); URINE COLOR YELLOW (YELLOW); URINE GLUCOSE (UA) NEG (Normal); URINE LEUKOCYTE ESTERASE MOD Leu/uL (Negative); URINE PROTEIN NEGATIVE (NEGATIVE); URINE UROBILINOGEN 0.2-1.0 mg/dL (0.2-1.0)
--- NOTE | 2017-07-10 09:00 | CP.PCM.HP ---
History of Present Illness - History of Present Illness History of Present Illness: CC: intractable nausea, vomiting, and dizziness HPI: 51 y/o woman w/ pmh of HTN, breast Ca w/ mets on chemotherapy presented to the ED w/ intractable nausea and vomiting. Patient reports sympotms of constant nausea, vomiting, and dizziness for 1-2 days. Patient was seen in the ED 1 day prior to admission for similar complaints. CT head was negative for any acute intracranial changes and blood work was WNL. Patient was sent home but patient continued to be symptomatic at home. Patient returned to ED and was admitted for further evaluation. Patient currently still complains of nausea and dizziness which she describes as "the room is spinning". Patient reports vomit is non-bloody/non-bilious but w/ multiple episodes. Patient has no other complaints. Patient denies headache, chest pain, SOB, abdominal pain, diarrhea, dysuria, or fever. PMD: Dr. Kurtis Gonsalez Heme/Onc: Dr. Nawaf Shrestha PMH: HTN, breast Ca w/ mets on chemotherapy meds: see med list allergies: NKDA PSH: left breast mastectomy Fam: denies family history of cancer SOC: former smoker, quit 4 years ago, smoked 1/2 pack/day for 30 years, denies alcohol and drugs ROS: 12 points assessed and negative unless otherwise reported in HPI Present on Admission - Present on Admission Any Indicators Present on Admission: No History of DVT/PE: No History of Uncontrolled Diabetes: No Urinary Catheter: No Decubitus Ulcer Present: No Review of Systems - Review of Systems All systems: reviewed and no additional remarkable complaints except - Constitutional Constitutional: absent: Chills, Fever, Headache - EENT Eyes: absent: Change in Vision - Cardiovascular Cardiovascular: absent: Chest Pain - Respiratory Respiratory: absent: Dyspnea - Gastrointestinal Gastrointestinal: As Per HPI, Nausea, Vomiting. absent: Abdominal Pain, Coffee Ground Emesis, Diarrhea, Hematemesis - Genitourinary Genitourinary: absent: Dysuria - Integumentary Integumentary: absent: Rash - Neurological Neurological: Dizziness. absent: Headaches Past Patient History - Infectious Disease Hx of Infectious Diseases: None - Past Medical History & Family History Past Medical History?: Yes - Past Social History Smoking Status: Never Smoked - CARDIAC Hx Cardiac Disorders: Yes - PULMONARY Hx Pneumonia: Yes - NEUROLOGICAL Hx Neurological Disorder: Yes - HEENT Hx HEENT Problems: Yes - RENAL Hx Chronic Kidney Disease: No - ENDOCRINE/METABOLIC Hx Endocrine Disorders: No - HEMATOLOGICAL/ONCOLOGICAL Hx Blood Disorders: Yes - INTEGUMENTARY Hx Dermatological Problems: No - MUSCULOSKELETAL/RHEUMATOLOGICAL Hx Falls: No - GASTROINTESTINAL Hx Gastritis: Yes - GENITOURINARY/GYNECOLOGICAL Hx Genitourinary Disorders: No - PSYCHIATRIC Hx Psychophysiologic Disorder: No - SURGICAL HISTORY Hx Surgeries: Yes Hx Mastectomy: Yes (left) Hx Tubal Ligation: Yes Other/Comment: left mastectomy 2004 - ANESTHESIA Hx Anesthesia: Yes Hx Anesthesia Reactions: No Hx Malignant Hyperthermia: No Meds Allergies/Adverse Reactions: Allergies Allergy/AdvReac Type Severity Reaction Status Date / Time No Known Allergies Allergy Verified 07/09/17 12:16 Physical Exam - Constitutional Appears: Non-toxic, No Acute Distress - Head Exam Head Exam: ATRAUMATIC, NORMAL INSPECTION, NORMOCEPHALIC - Eye Exam Eye Exam: EOMI, Normal appearance, PERRL - ENT Exam ENT Exam: Mucous Membranes Moist - Neck Exam Neck exam: Positive for: Full Rom. Negative for: Tenderness - Respiratory Exam Respiratory Exam: Clear to Auscultation Bilateral. absent: Accessory Muscle Use , Decreased Breath Sounds, Rales, Rhonchi, Wheezes, Respiratory Distress - Cardiovascular Exam Cardiovascular Exam: REGULAR RHYTHM. absent: Tachycardia - GI/Abdominal Exam GI & Abdominal Exam: Normal Bowel Sounds, Soft. absent: Distended, Tenderness - Extremities Exam Extremities exam: Negative for: calf tenderness, pedal edema, tenderness - Neurological Exam Neurological exam: Alert, CN II-XII Intact, Oriented x3 - Skin Skin Exam: Dry, Intact, Normal Color, Warm Results - Vital Signs Recent Vital Signs: Last Vital Signs Temp 98.0 F 07/10/17 08:23 Pulse 78 07/10/17 08:23 Resp 15 07/10/17 08:23 BP 143/83 07/10/17 08:23 Pulse Ox 100 07/10/17 08:08 - Labs Result Diagrams: 07/10/17 07:01 07/10/17 07:01 Labs: Laboratory Results - last 24 hr 07/10/17 07/10/17 07/10/17 07:01 07:01 07:01 WBC 7.0 RBC 4.05 Hgb 12.6 Hct 37.7 MCV 93.0 MCH 31.2 H MCHC 33.5 RDW 15.1 H Plt Count 255 MPV 7.9 Neut % (Auto) 64.0 Lymph % (Auto) 24.9 [place] % (Auto) 8.3 Eos % (Auto) 2.2 Baso % (Auto) 0.6 Neut # (Auto) 4.5 Lymph # (Auto) 1.7 [place] # (Auto) 0.6 Eos # (Auto) 0.2 Baso # (Auto) 0.0 Sodium 145 Potassium 4.5 Chloride 105 Carbon Dioxide 24 Anion Gap 21 H BUN 11 Creatinine 0.7 Est GFR ( Amer) > 60 Est GFR (Non-Af Amer) > 60 Random Glucose 110 H Calcium 8.7 Total Bilirubin 0.4 AST 35 ALT 37 Alkaline Phosphatase 44 Total Protein 6.7 Albumin 3.6 Globulin 3.1 Albumin/Globulin Ratio 1.2 Urine Color Yellow Urine Clarity Clear Urine pH 6.0 Ur Specific [place] 1.014 Urine Protein Negative Urine Glucose (UA) Neg Urine Ketones Negative Urine Blood Small Urine Nitrate Negative Urine Bilirubin Negative Urine Urobilinogen 0.2-1.0 Ur Leukocyte Esterase Mod Urine RBC (Auto) 3 Urine Microscopic WBC 16 H Ur Squamous Epith Cells 1 Assessment & Plan (1) Intractable nausea and vomiting Status: Acute (2) Dizziness Status: Acute (3) Metastatic breast cancer Status: Chronic (4) HTN (hypertension) Status: Chronic - Assessment and Plan (Free Text) Plan: c/w present management afebrile, non-tachycardic, normotensive hemodynamically stable ENT consult ordered GI consult ordered Heme/Onc recommendations appreciated NPO except meds for now IVF D5 LR @ 100 mL/h solu-medrol 125mg IV once protonix 40 mg IV daily pepcid 20 mg PO BID zofran 4 mg IV Q6 prn prophylactic measures: DVT SCDs monitor for acute changes
[2017-07-10] MEDS ORDERED: Sodium Chloride 0.9% 1,000 ML IV SCH (09:15)
--- NOTE | 2017-07-10 11:01 | CP.PCM.CON ---
History of Present Illness - History of Present Illness History of Present Illness: This is a 51 yrs old female who was diagnosed to have a breast cancer in 2002. She had neoadjuvanr chemotherapy followed by surgery,radiation and more chemotherapy., in the [facility]. In 2016 she developed a brain metastasis and came to me for further treatment, She received radiation to the brain, and after that was given 6 cycles of carbo/taxotere and was doing well with hormonal treatment only. She then developed liver metastasis and was given gemcitabine +, Paclitaxel. She then had lung metastasis and we gave her CMF,for 4 cycles and restarted her hormonal therapy. Both the pt and her daughter want us to continue chemo because of the multiple mets, so she is now on Capecitabine and zometa. She was doing well until last night when she started having severe vertigo . She was brought to the ER where a ct head was done , but it was unchanged from the previous one. She was given some zofran and sent home. She was still very dizzy and could not even stand, and was therefore admitted. She claims taht every tme she moves her head the room seems to spin around her. Past Patient History - Infectious Disease Hx of Infectious Diseases: None - Past Medical History & Family History Past Medical History?: Yes - Past Social History Smoking Status: Never Smoked - CARDIAC Hx Cardiac Disorders: Yes - PULMONARY Hx Pneumonia: Yes - NEUROLOGICAL Hx Neurological Disorder: Yes - HEENT Hx HEENT Problems: Yes - RENAL Hx Chronic Kidney Disease: No - ENDOCRINE/METABOLIC Hx Endocrine Disorders: No - HEMATOLOGICAL/ONCOLOGICAL Hx Blood Disorders: Yes - INTEGUMENTARY Hx Dermatological Problems: No - MUSCULOSKELETAL/RHEUMATOLOGICAL Hx Falls: No - GASTROINTESTINAL Hx Gastritis: Yes - GENITOURINARY/GYNECOLOGICAL Hx Genitourinary Disorders: No - PSYCHIATRIC Hx Psychophysiologic Disorder: No - SURGICAL HISTORY Hx Surgeries: Yes Hx Mastectomy: Yes (left) Hx Tubal Ligation: Yes Other/Comment: left mastectomy 2003 - ANESTHESIA Hx Anesthesia: Yes Hx Anesthesia Reactions: No Hx Malignant Hyperthermia: No Meds Allergies/Adverse Reactions: Allergies Allergy/AdvReac Type Severity Reaction Status Date / Time No Known Allergies Allergy Verified 07/09/17 12:16 - Medications Medications: Current Medications Calcium/Vitamin D (Oyster Shell Calcium/Vitamin D 500 Mg-200 Iu) 1 tab PO BID [facility] Ezetimibe (Zetia) 10 mg PO DAILY [facility] Home Med (Capecitabine [Capecitabine]) 1 tab PO Q12 [facility] Home Med (Letrozole [Femara]) 2.5 mg PO DAILY [facility] Sodium Chloride (Sodium Chloride 0.9%) 1,000 mls @ 100 mls/hr IV .Q10H OMAR Last Admin: 07/10/17 10:21 Dose: 100 mls/hr Meclizine HCl (Antivert) 25 mg PO Q8 PRN PRN Reason: Nausea/Vomiting Last Admin: 07/10/17 10:27 Dose: 25 mg Metoprolol Succinate (Toprol Xl) 25 mg PO DAILY [facility] Ondansetron HCl (Zofran Inj) 4 mg IVP Q6 PRN PRN Reason: Nausea/Vomiting Physical Exam - Additional Findings Additional findings: Physicl exam; alert, well oriented,in no except for the vertigo neck; Supple, no adenopathy Chest; clear, no rales or rhonchi Heart;RSR, no murmur Abd; Soft,no mass, no h/s megaly Results - Vital Signs Recent Vital Signs: Last Vital Signs Temp 98.0 F 07/10/17 08:23 Pulse 78 07/10/17 08:23 Resp 15 07/10/17 08:23 BP 143/83 07/10/17 08:23 Pulse Ox 100 07/10/17 08:08 - Labs Result Diagrams: 07/10/17 07:01 07/10/17 07:01 Labs: Laboratory Results - last 24 hr 07/10/17 07/10/17 07/10/17 07:01 07:01 07:01 WBC 7.0 RBC 4.05 Hgb 12.6 Hct 37.7 MCV 93.0 MCH 31.2 H MCHC 33.5 RDW 15.1 H Plt Count 255 MPV 7.9 Neut % (Auto) 64.0 Lymph % (Auto) 24.9 [place] % (Auto) 8.3 Eos % (Auto) 2.2 Baso % (Auto) 0.6 Neut # (Auto) 4.5 Lymph # (Auto) 1.7 [place] # (Auto) 0.6 Eos # (Auto) 0.2 Baso # (Auto) 0.0 Sodium 145 Potassium 4.5 Chloride 105 Carbon Dioxide 24 Anion Gap 21 H BUN 11 Creatinine 0.7 Est GFR ( Amer) > 60 Est GFR (Non-Af Amer) > 60 Random Glucose 110 H Calcium 8.7 Total Bilirubin 0.4 AST 35 ALT 37 Alkaline Phosphatase 44 Total Protein 6.7 Albumin 3.6 Globulin 3.1 Albumin/Globulin Ratio 1.2 Urine Color Yellow Urine Clarity Clear Urine pH 6.0 Ur Specific [place] 1.014 Urine Protein Negative Urine Glucose (UA) Neg Urine Ketones Negative Urine Blood Small Urine Nitrate Negative Urine Bilirubin Negative Urine Urobilinogen 0.2-1.0 Ur Leukocyte Esterase Mod Urine RBC (Auto) 3 Urine Microscopic WBC 16 H Ur Squamous Epith Cells 1 Assessment & Plan - Assessment and Plan (Free Text) Assessment: IMP; Breast cancer, brain, liver and lung metastasis Vertigo. Plan: Plan; Would continue the zofran and the meclizine. Suggest ENT evaluation. - Date & Time Date: 07/10/17 Time: 11:07
[2017-07-10] MEDS ORDERED: methylPREDNISolone 125 MG in Sodium Chloride 0.9% 50 ML IVPB ONE (12:53)
[2017-07-10] MEDS: Dextrose 5%/Lactated Ringer's 1,000 ML IV SCH ×2 (13:46→22:00)
[2017-07-10] MEDS: Calcium-Vit D 500 mg-200 Units Tab UD PO SCH (17:33)
[2017-07-10] MEDS: CAPECITABINE PO SCH (22:00)
--- NOTE | 2017-07-11 07:56 | CON ---
DATE: 07/10/2017 REFERRING DOCTOR: Kurtis Gonsalez MD REASON FOR CONSULTATION: Nausea and vomiting. HISTORY OF PRESENT ILLNESS: This is very pleasant 51-year-old female with a history of recently diagnosed with breast CA, had neoadjuvant chemotherapy with brain METs, had some cycles of chemotherapy with liver METs, had recent therapy of nausea, vomiting, and dizziness. The patient actually is doing better now, has no pain, no nausea, no vomiting, no evidence of melena, no evidence of any GI complaint at this point. Tolerating . PAST MEDICAL HISTORY: As above. PAST SURGICAL HISTORY: As above. MEDICATIONS: Reviewed. REVIEW OF SYSTEMS: All other systems have been reviewed and negative apart from the HPI. PHYSICAL EXAMINATION: VITAL SIGNS: In the hospital are grossly unremarkable. GENERAL: This is a pleasant middle-aged female, lying in bed comfortably, in no apparent distress. HEENT: Head is normocephalic, atraumatic. Eyes: Pupils are equally reactive to light bilaterally. No conjunctival pallor or icterus. NECK: Supple. Normal range of motion. No lymphadenopathy appreciated. LUNGS: Coarse breath sounds bilaterally. HEART: S1 and S2, regular rate and rhythm. No murmurs appreciated. ABDOMEN: Soft and nontender. Bowel sounds are present. No rebound. No guarding. RECTAL: Deferred. EXTREMITIES: Pulses present bilaterally. SKIN: Warm, dry and intact. NEUROLOGIC: A and O x3. LABORATORY DATA: Labs and radiology have been reviewed. WBC hemoglobin is stable at 12.6, platelet count is normal. is normal. ASSESSMENT AND PLAN: This is a 51-year-old female with likely essential nausea and dizziness Zofran and Reglan Pepcid as well. Advance diet as tolerated. Thank you for the consult. Eldon Mancilla MD/ PhD cc: Kurtis Gonsalez MD
[2017-07-11 08:00] VITALS: BP 110/71; PULSE 85; RESP 20; TEMP 98.1; O2SAT 99
[2017-07-11] MEDS ORDERED: Gadodiamide 287 MG/ML VIAL (15ML) IV ONE (08:03)
--- NOTE | 2017-07-11 08:37 | CP.PCM.PN ---
Subjective - Date & Time of Evaluation Date of Evaluation: 07/11/17 Time of Evaluation: 08:35 - Subjective Subjective: Pt is feelimng uch better with the zofran and the meclizine. She is having a MRI done now to determine if there are any middle ear problems. Will follow. Objective - Vital Signs/Intake and Output Vital Signs (last 24 hours): Temp Pulse Resp BP Pulse Ox 98.1 F 85 20 110/71 99 07/11/17 07:59 07/11/17 07:59 07/11/17 07:59 07/11/17 07:59 07/11/17 07:59 - Medications Medications: Current Medications Calcium/Vitamin D (Oyster Shell Calcium/Vitamin D 500 Mg-200 Iu) 1 tab PO BID [facility] Last Admin: 07/10/17 17:33 Dose: 1 tab Ezetimibe (Zetia) 10 mg PO DAILY [facility] Famotidine (Pepcid) 20 mg PO BID [facility] Last Admin: 07/10/17 17:33 Dose: 20 mg Home Med (Capecitabine [Capecitabine]) 1 tab PO Q12 [facility] Last Admin: 07/10/17 22:00 Dose: 1 tab Home Med (Letrozole [Femara]) 2.5 mg PO DAILY [facility] Dextrose/Lactated Ringer's (Dextrose 5%/Lactated Ringer's) 1,000 mls @ 100 mls/ hr IV .Q10H [facility] Stop: 07/11/17 12:54 Last Admin: 07/10/17 22:00 Dose: 100 mls/hr Meclizine HCl (Antivert) 25 mg PO Q8 PRN PRN Reason: Nausea/Vomiting Last Admin: 07/10/17 17:33 Dose: 25 mg Metoprolol Succinate (Toprol Xl) 25 mg PO DAILY [facility] Ondansetron HCl (Zofran Inj) 4 mg IVP Q6 PRN PRN Reason: Nausea/Vomiting Pantoprazole Sodium (Protonix Inj) 40 mg IVP DAILY [facility] Last Admin: 07/10/17 13:45 Dose: 40 mg - Labs Labs: 07/10/17 07:01 07/10/17 07:01 Assessment and Plan - Assessment and Plan (Free Text) Plan: Plan; continue the aster medications
[2017-07-11] MEDS ORDERED: Metoprolol Succinate 25 mg XL Tab PO SCH (09:00)
[2017-07-11] MEDS ORDERED: LETROZOLE 2.5 MG PO SCH (09:00)
--- NOTE | 2017-07-11 10:30 | MRI ---
PROCEDURE: MRI OF THE BRAIN AND INTERNAL AUDITORY CANALS WITH AND WITHOUT CONTRAST. HISTORY: dizziness/vomiting COMPARISON: MRI brain without and with intravenous contrast from 11/07/2015. TECHNIQUE: Multiplanar, multisequence MR images of the brain and posterior fossa were obtained with and without contrast. High-resolution posterior fossa and images through the cerebellopontine angle and internal auditory canals included: Axial 3-D fiesta, axial T1 pre-and postcontrast enhanced and coronal T1 pre-and postcontrast enhanced. 15 mL Omniscan was injected intravenously. FINDINGS: IAC/CP ANGLES: INTERNAL AUDITORY CANALS: There is no mass or abnormal enhancement. CEREBELLOPONTINE ANGLES: There is no mass or abnormal enhancement. INNER EAR STRUCTURES: Normally formed cochlea and semicircular canals. No signal abnormality or abnormal enhancement in the membranous labyrinth of the cochlea, vestibule or the semicircular canals. BRAINSTEM: Grossly normal in appearance. The midline sagittal structures are normal. There is a partially empty sella. MASTOIDS: The mastoid air cells are predominantly clear. OTHER: No other notable findings. BRAIN (LIMITED): There is redemonstration of gliosis in the left occipital lobe. There are scattered T2/FLAIR hyperintense foci in the subcortical supratentorial white matter. There is no mass, mass effect or abnormal extra-axial fluid collection. There is mild global parenchymal volume loss and proportionate enlargement of the ventricles and cortical sulci, advanced for the patient's age. PARANASAL SINUSES: There is mild mucosal thickening in the paranasal sinuses. IMPRESSION: 1. No evidence of mass or abnormal enhancement in the internal auditory canals or cerebello-pontine angle cisterns. No acute intracranial abnormality. 2. Redemonstration of gliosis in the left occipital lobe, sequela of remote posttreatment changes. 3. Mild supratentorial white matter changes are strictly nonspecific and may represent gliosis, early chronic microangiopathic changes or posttreatment changes. 4. Mild global parenchymal volume loss, advanced for the patient's age.
[2017-07-11] MEDS: CAPECITABINE PO SCH (11:00)
[2017-07-11] MEDS: Calcium-Vit D 500 mg-200 Units Tab UD PO SCH (11:01)
[2017-07-11] MEDS ORDERED: Acetaminophen-Codeine 300/30 mg Tab PO PRN (11:53)
[2017-07-12] MEDS ORDERED: Pantoprazole 40 mg EC Tab PO SCH (09:00)
== END 2017-07-11 12:44 | disposition home or self-care (01) ==
LOC: H.ER 05:12 → H.ERHOLD 06:27 → H.MEDSURG1 08:37
PROVIDERS: ADMIT Family Medicine; ATTEND Family Medicine
DX: R11.2 Nausea with vomiting, unspecified (principal); Z85.3 Personal history of malignant neoplasm of breast; C78.7 Secondary malignant neoplasm of liver and intrahepatic bile duct; K29.70 Gastritis, unspecified, without bleeding; C78.00 Secondary malignant neoplasm of unspecified lung; C79.31 Secondary malignant neoplasm of brain; I10 Essential (primary) hypertension; E78.00 Pure hypercholesterolemia, unspecified; E78.5 Hyperlipidemia, unspecified; R42 Dizziness and giddiness
CPT/HCPCS: 70553; 80053; 81003; 85025; 96361; 96374; 96375; 96376; 99285; A9579; C9113; G0378; J2405; J2765; J2930; J7040; J7120

== ENCOUNTER 2017-07-26 12:01 | Inpatient (IN) | payer SELFPAY ==
[2017-07-26 12:01] VITALS: BMI 36.6
[2017-07-26] MEDS ORDERED: Sodium Chloride 0.9% 1,000 ML IV STA (12:51)
--- NOTE | 2017-07-26 13:05 | ED PDOC ---
HPI: Headache Time Seen by Provider: 07/26/17 12:26 Chief Complaint (Nursing): Headache Chief Complaint (Provider): Headache History Per: Family (daughter) History/Exam Limitations: no limitations Onset/Duration Of Symptoms: Hrs (this morning) Current Symptoms Are (Timing): Still Present Additional Complaint(s): 51 year old female presents to the emergency department complaining of pain behind her right ear radiating down the right side of her throat upon waking up this morning. She also reports pain with swallowing. At 8:00, her daughter states that the patient took Tylenol with codeine to no relief. Denies fever, shortness of breath, chest pain, and hearing changes. Last month, that patient notes she was also admitted to the hospital for dizziness and vomiting, but states those symptoms have resolved and denies feeling them now. During that visit, she received a CT of the head, and an MRI of the inner ear, and both came back normal. PMD: Kurtis Gonsalez Past Medical History Reviewed: Historical Data, Nursing Documentation, Vital Signs Vital Signs: Last Vital Signs Temp 98.0 F 07/26/17 12:30 Pulse 125 H 07/26/17 12:30 Resp 18 07/26/17 12:30 BP 130/82 07/26/17 12:30 Pulse Ox 97 07/26/17 12:30 - Medical History PMH: Anemia, Gastritis, HTN, Hypercholesterolemia, Pneumonia Denies: Chronic Kidney Disease - Surgical History Other surgeries: left mastectomy, tubal ligation - Family History Family History: States: Unknown Family Hx - Social History Current smoker - smoking cessation education provided: No Alcohol: None Drugs: Denies - Home Medications Home Medications: Ambulatory Orders Medication Instructions Recorded Dexlansoprazole [Dexilant] 60 mg PO DAILY 06/24/16 Ezetimibe [Zetia] 10 mg PO DAILY 06/24/16 Metoprolol Succinate [Toprol XL] 25 mg PO DAILY 06/24/16 Calcium Carbonate/Vitamin D3 1 each PO BID 06/25/16 [Calcium 600 + Vit D Softgel] Acetaminophen with Codeine 1 tab PO Q6H PRN #10 tab 03/22/17 [Tylenol with Codeine No. 3 300 mg-30 mg] Letrozole [Femara] 2.5 mg PO DAILY 04/07/17 Metoclopramide HCl [Reglan] 5 mg PO TID PRN 05/04/17 Capecitabine [Capecitabine] 1 tab PO Q12 07/06/17 Meclizine [Meclizine*] 25 mg PO Q8 PRN #12 tab 07/09/17 Ondansetron ODT [Zofran ODT] 4 mg PO Q6 PRN #12 odt 07/09/17 Capecitabine [Capecitabine] 500 mg PO BID 07/26/17 - Allergies Allergies/Adverse Reactions: Allergies Allergy/AdvReac Type Severity Reaction Status Date / Time No Known Allergies Allergy Verified 07/09/17 12:16 Review of Systems ROS Statement: Except As Marked, All Systems Reviewed And Found Negative Constitutional: Negative for: Fever ENT: Positive for: Ear Pain (behind right ear, radiating down right side of throat), Throat Pain (upon swallowing). Negative for: Other (hearing changes) Cardiovascular: Negative for: Chest Pain Respiratory: Negative for: Shortness of Breath Gastrointestinal: Negative for: Vomiting Neurological: Negative for: Dizziness Physical Exam - Reviewed Nursing Documentation Reviewed: Yes Vital Signs Reviewed: Yes - Physical Exam Appears: Positive for: In Acute Distress (minimal painful) Head Exam: Positive for: ATRAUMATIC, NORMAL INSPECTION, NORMOCEPHALIC Skin: Positive for: Normal Color, Warm, Dry Eye Exam: Positive for: EOMI, Normal appearance, PERRL ENT: Positive for: TM Is/Are (not erythematous and not bulging), Pharyngeal Erythema (bilateral), Tonsillar Swelling (right sided), Other (ear canals are clear; no mastoid tenderness or swelling; pt able to swallow, but cringes in pain) Neck: Positive for: Normal, Painless ROM Cardiovascular/Chest: Positive for: Tachycardia. Negative for: Murmur Respiratory: Positive for: Normal Breath Sounds. Negative for: Respiratory Distress Extremity: Negative for: Calf Tenderness (b/l) Lymphatic: Negative for: Adenopathy Neurologic/Psych: Positive for: Alert, Oriented. Negative for: Aphasia, Facial Droop - Laboratory Results Result Diagrams: 07/26/17 13:00 07/26/17 13:00 - ECG ECG: Positive for: Interpreted By Me ECG Rhythm: Positive for: Sinus Tachycardia. Negative for: ST/T Changes Rate: 107 O2 Sat by Pulse Oximetry: 97 (RA) Pulse Ox Interpretation: Normal Medical Decision Making Medical Decision Making: Initial Impression: Sore throat, rule out DIVERSIFIED CROPS II F[employer]ER Time: 12:50 Initial Plan: --Type and Screen --VBG --CT Neck Soft Tissue with contrast --EKG --CMP --CBC with differential --Morphine 2mg IVP --Sodium Chloride 0.9% 1000ml IV --Zofran 4mg PO --Blood culture --Influenza A B --Rapid Strep Group A Antigen --Urinalysis 12:55 Case was discussed with Dr. Rodas who agrees with care. Re-evaluation 13:50 Pt found sleeping, informed of UA results. She states her urine has been having a strong odor, but denies dysuria, frequency, and urgency. Sore throat and ear pain have improved. Pending CT still. 17:32 CT Neck Soft Tissue FINDINGS: Oropharynx: Unremarkable. No significant tonsillar enlargement. No peritonsillar abscess. Hypopharynx: Unremarkable. Larynx: Unremarkable. Normal epiglottis. Trachea: Unremarkable. Retropharyngeal space: Mild edema seen in the retropharyngeal and carotid space likely related to DVT in the right internal jugular vein. Submandibular/parotid glands: Unremarkable. Glands are normal in size. Thyroid: Unremarkable. No enlarged or calcified nodules. Bones/joints: No acute fracture. Soft tissues: Unremarkable. Vasculature: There is nearly occlusive thrombus throughout the length of the internal jugular vein from the skull base to the subclavian region. Lymph nodes: Unremarkable. No lymphadenopathy. Lung apices: Unremarkable as visualized. Tubes, lines and devices: A right internal jugular central line is present with the tip in the SVC. IMPRESSION: Thrombus in the right internal jugular vein. Mild edema seen in the retropharyngeal and carotid space likely related to DVT in the right internal jugular vein. 1740 Dr. Rodas discussed case with Dr. Blair, IR [employer], who will view CT. [address] Rodas's discussion with Dr. Blair after viewing CT he recommends anticoagulation over removal as it is an isolated thrombos in the IJV. Heparin ordered. Pt. and daughter informed of plan and agree with care. Pt. denies chest pain, SOB. No aphasia, facial droop. Equal cotton ginner helper strength b/l. Repeat neuro exam is non -focal. 1819 Case d/w Dr. Mendes, surgical nurse, who will evaluate pt. and discuss case with Dr. Parker (vascular surgeon) for removal of catheter tomorrow. 1854 Case d/w Dr. Whitten, hospitalist, and arrangements made for admission. Scribe Attestation: Documented by Brandie Ulloa, acting as a scribe for Humphrey Burden PA-C Provider Scribe Attestation: All medical entries made by the Scribe were at my direction and personally dictated by me. I have reviewed the chart and agree that the record accurately reflects my personal performance of the history, physical exam, medical decision making, and the department course for this patient. I have also personally directed, reviewed, and agree with the discharge instructions and disposition. Disposition - Clinical Impression Clinical Impression: Internal jugular vein thrombosis, UTI (urinary tract infection) - Patient ED Disposition Is Patient to be Admitted: Yes - Disposition Disposition Time: 18:57 Condition: STABLE
[2017-07-26] MEDS ORDERED: Morphine 4 MG/ML VIAL ONE (13:06)
[2017-07-26] MEDS ORDERED: Morphine 4 MG/ML VIAL IVP STA ×2 (13:09→15:48)
[2017-07-26 13:28] LABS: SQUAMOUS EPITHIAL 2 /hpf (0-5); URINE BILIRUBIN NEGATIVE (NEGATIVE); URINE BLOOD SMALL (NEGATIVE); URINE CLARITY CLOUDY (Clear); URINE COLOR AMBER (YELLOW); URINE GLUCOSE (UA) NEG (Normal); URINE HYALINE CAST 0-2 /hpf (0-2); URINE LEUKOCYTE ESTERASE MOD Leu/uL (Negative); URINE PROTEIN 30 mg/dL (NEGATIVE)
[2017-07-26 13:34] LABS: VENOUS BLOOD GAS BASE EXCESS 1.6 mmol/L (0.0-2.0); VENOUS BLOOD GAS PCO2 39 mmHg (40-60); VENOUS BLOOD GAS PO2 47 mm/Hg (30-55); VENOUS BLOOD PH 7.43 (7.32-7.43)
[2017-07-26 13:38] LABS: BASO % 0.2 % (0.0-2.0); EOS # 0.1 K/uL (0.0-0.7); HEMOGLOBIN 13.3 g/dL (12.0-16.0); LYMPH # 1.8 K/uL (1.0-4.3); LYMPH % 17.4 % (20.0-40.0); MEAN CELL VOLUME 93.8 fl (81.0-99.0); MEAN CORPUSCULAR HEMOGLOBIN 32.3 pg (27.0-31.0); MEAN CORPUSCULAR HGB CONC 34.4 g/dL (33.0-37.0); MEAN PLATELET VOLUME 7.8 fl (7.2-11.7); MONO # 0.7 K/uL (0.0-0.8); MONO % 7.3 % (0.0-10.0); NEUT # 7.5 K/uL (1.8-7.0); NEUT % 74.1 % (50.0-75.0); NRBC % 0.2 % (0.0-0.0); RBC 4.11 Mil/uL (3.80-5.20); RED CELL DISTRIBUTION WIDTH 16.7 % (11.5-14.5); WHITE BLOOD COUNT 10.1 K/uL (4.8-10.8)
[2017-07-26 13:50] LABS: ALB/GLOB RATIO 1.1 (1.0-2.1); ALBUMIN 3.8 g/dL (3.5-5.0); ALT/SGPT 33 U/L (9-52); AST/SGOT 29 U/L (14-36); BLOOD UREA NITROGEN 13 mg/dl (7-17); CALCIUM 8.9 mg/dL (8.4-10.2); GFR AFRICAN-AMERICAN > 60; GFR NON-AFRICAN AMERICAN > 60
[2017-07-26] MEDS ORDERED: Heparin 25,000units in D5W 0 UNITS/0 ML BAG IV ONE (18:11)
[2017-07-26] MEDS ORDERED: Heparin 25,000units in D5W 25,000 UNITS/250 ML BAG IV SCH (18:15)
[2017-07-26 18:24] LABS: INR 1.1 (0.9-1.2); PARTIAL THROMBOPLASTIN TIME 26.6 Seconds (25.6-37.1); PROTHROMBIN TIME 12.1 Seconds (9.8-13.1)
[2017-07-26] MEDS ORDERED: Morphine 4 MG/ML VIAL IV STA (18:36)
[2017-07-26] MEDS: Heparin 25,000units in D5W 25,000 UNITS/250 ML BAG IV SCH (18:46)
--- NOTE | 2017-07-26 19:04 | CP.PCM.CON ---
History of Present Illness - History of Present Illness History of Present Illness: SURGERY CONSULT NOTE FOR DR. SEVILLA 51F presents with right sided head and neck pain that started earlier this morning. Patient states she has never had this type of pain before. She denies dizziness, fevers, chills, chest pain, shortness of breathe and abdominal pain. Patient is stage 4 breast ca diagnoses 2003 and went into remission twice. Patient is currently taking PO chemotherapy agents and last radiation was 6 months ago as per family. Patient's most recent portacath was last used for chemotherapy 6 months ago. Port was placed by IR Dr. Ortiz here in [place] less than a year ago. PMH:Anemia, Gastritis, HTN, Hypercholesterolemia, Pneumonia, Stage 4 breast ca, mets to brain and liver PSH: Left mastectomy, tubal ligation Social: prior tobacco abuse, denies alcohol use Allergies: NKDA Past Patient History - Infectious Disease Hx of Infectious Diseases: None - Past Medical History & Family History Past Medical History?: Yes - Past Social History Alcohol: None Drugs: Denies - CARDIAC Hx Hypercholesterolemia: Yes Hx Hypertension: Yes - PULMONARY Hx Pneumonia: Yes - NEUROLOGICAL Hx Neurological Disorder: Yes - HEENT Hx HEENT Problems: Yes - RENAL Hx Chronic Kidney Disease: No - ENDOCRINE/METABOLIC Hx Endocrine Disorders: No - HEMATOLOGICAL/ONCOLOGICAL Hx Anemia: Yes - INTEGUMENTARY Hx Dermatological Problems: No - MUSCULOSKELETAL/RHEUMATOLOGICAL Hx Falls: No - GASTROINTESTINAL Hx Gastritis: Yes - GENITOURINARY/GYNECOLOGICAL Hx Genitourinary Disorders: No - PSYCHIATRIC Hx Psychophysiologic Disorder: No Hx Substance Use: No - SURGICAL HISTORY Hx Surgeries: Yes Hx Mastectomy: Yes (left) Hx Tubal Ligation: Yes Other/Comment: left mastectomy 2003 - ANESTHESIA Hx Anesthesia: Yes Hx Anesthesia Reactions: No Hx Malignant Hyperthermia: No Meds Allergies/Adverse Reactions: Allergies Allergy/AdvReac Type Severity Reaction Status Date / Time No Known Allergies Allergy Verified 07/09/17 12:16 - Medications Medications: Current Medications Heparin Sodium/Dextrose (Heparin 25,000 Units/250ml In D5w) 25,000 units in 250 mls @ 16.9 mls/hr IV .[id number] OMAR; 1,690 UNITS/HR PRN Reason: Protocol Last Admin: 07/26/17 18:46 Dose: 1,690 units/hr, 16.9 mls/hr Vancomycin HCl 1 gm/ Sodium (Chloride) 250 mls @ 166.667 mls/hr IVPB STAT STA PRN Reason: Protocol Stop: 07/26/17 20:06 Physical Exam - Constitutional Appears: Well, Non-toxic, No Acute Distress - Head Exam Head Exam: ATRAUMATIC - Eye Exam Eye Exam: EOMI, PERRL - ENT Exam ENT Exam: Mucous Membranes Moist - Neck Exam Neck exam: Positive for: Full Rom, Normal Inspection Additional comments: portacath palpable in left chest - Respiratory Exam Respiratory Exam: Clear to Auscultation Bilateral, NORMAL BREATHING PATTERN - Cardiovascular Exam Cardiovascular Exam: REGULAR RHYTHM, +S1, +S2 - GI/Abdominal Exam GI & Abdominal Exam: Soft. absent: Distended, Firm, Guarding, Rebound, Rigid, Tenderness - Extremities Exam Extremities exam: Negative for: pedal edema, tenderness - Neurological Exam Neurological exam: Alert, Oriented x3 - Psychiatric Exam Psychiatric exam: Normal Affect, Normal Mood - Skin Skin Exam: Dry, Intact, Normal Color, Warm Results - Vital Signs Recent Vital Signs: Last Vital Signs Temp 98.0 F 07/26/17 12:30 Pulse 93 H 07/26/17 15:43 Resp 18 07/26/17 15:43 BP 126/64 07/26/17 15:43 Pulse Ox 97 07/26/17 18:57 - Labs Result Diagrams: 07/26/17 13:00 07/26/17 13:00 Labs: Laboratory Results - last 24 hr 07/26/17 07/26/17 07/26/17 12:54 13:00 13:00 WBC RBC Hgb Hct MCV MCH MCHC RDW Plt Count MPV Neut % (Auto) Lymph % (Auto) [place] % (Auto) Eos % (Auto) Baso % (Auto) Neut # (Auto) Lymph # (Auto) [place] # (Auto) Eos # (Auto) Baso # (Auto) PT INR APTT pO2 47 VBG pH 7.43 VBG pCO2 39 L VBG HCO3 25.7 VBG Total CO2 27.1 VBG O2 Sat (Calc) 86.3 H VBG Base Excess 1.6 VBG Potassium 3.8 Sodium 136.0 Chloride 104.0 Glucose 159 H Lactate 1.8 FiO2 21.0 Potassium Carbon Dioxide Anion Gap BUN Creatinine Est GFR ( Amer) Est GFR (Non-Af Amer) Random Glucose Calcium Total Bilirubin AST ALT Alkaline Phosphatase Total Protein Albumin Globulin Albumin/Globulin Ratio TSH 3rd Generation Venous Blood Potassium 3.8 Urine Color Urine Clarity Urine pH Ur Specific [place] Urine Protein Urine Glucose (UA) Urine Ketones Urine Blood Urine Nitrate Urine Bilirubin Urine Urobilinogen Ur Leukocyte Esterase Urine RBC (Auto) Urine Microscopic WBC Ur Squamous Epith Cells Hyaline Casts Influenza Typ A,B (EIA) Negative for flu a/b Grp A Beta Strep Ag Negative Blood Type Blood Type Confirm Antibody Screen BBK History Checked 07/26/17 07/26/17 07/26/17 13:00 13:00 13:00 WBC 10.1 RBC 4.11 Hgb 13.3 Hct 38.6 MCV 93.8 MCH 32.3 H MCHC 34.4 RDW 16.7 H Plt Count 225 MPV 7.8 Neut % (Auto) 74.1 Lymph % (Auto) 17.4 L [place] % (Auto) 7.3 Eos % (Auto) 1.0 Baso % (Auto) 0.2 Neut # (Auto) 7.5 H Lymph # (Auto) 1.8 [place] # (Auto) 0.7 Eos # (Auto) 0.1 Baso # (Auto) 0.0 PT INR APTT pO2 VBG pH VBG pCO2 VBG HCO3 VBG Total CO2 VBG O2 Sat (Calc) VBG Base Excess VBG Potassium Sodium 139 Chloride 101 Glucose Lactate FiO2 Potassium 4.1 Carbon Dioxide 22 Anion Gap 20 BUN 13 Creatinine 0.6 L Est GFR ( Amer) > 60 Est GFR (Non-Af Amer) > 60 Random Glucose 153 H Calcium 8.9 Total Bilirubin 0.6 AST 29 ALT 33 Alkaline Phosphatase 48 Total Protein 7.1 Albumin 3.8 Globulin 3.4 Albumin/Globulin Ratio 1.1 TSH 3rd Generation 1.62 Venous Blood Potassium Urine Color Urine Clarity Urine pH Ur Specific [place] Urine Protein Urine Glucose (UA) Urine Ketones Urine Blood Urine Nitrate Urine Bilirubin Urine Urobilinogen Ur Leukocyte Esterase Urine RBC (Auto) Urine Microscopic WBC Ur Squamous Epith Cells Hyaline Casts Influenza Typ A,B (EIA) Grp A Beta Strep Ag Blood Type A POSITIVE Blood Type Confirm Antibody Screen Negative BBK History Checked No verified bt 07/26/17 07/26/17 07/26/17 13:05 13:40 18:04 WBC RBC Hgb Hct MCV MCH MCHC RDW Plt Count MPV Neut % (Auto) Lymph % (Auto) [place] % (Auto) Eos % (Auto) Baso % (Auto) Neut # (Auto) Lymph # (Auto) [place] # (Auto) Eos # (Auto) Baso # (Auto) PT 12.1 INR 1.1 APTT 26.6 pO2 VBG pH VBG pCO2 VBG HCO3 VBG Total CO2 VBG O2 Sat (Calc) VBG Base Excess VBG Potassium Sodium Chloride Glucose Lactate FiO2 Potassium Carbon Dioxide Anion Gap BUN Creatinine Est GFR ( Amer) Est GFR (Non-Af Amer) Random Glucose Calcium Total Bilirubin AST ALT Alkaline Phosphatase Total Protein Albumin Globulin Albumin/Globulin Ratio TSH 3rd Generation Venous Blood Potassium Urine Color Ikzzy Urine Clarity Cloudy Urine pH 5.0 Ur Specific [place] 1.029 Urine Protein 30 Urine Glucose (UA) Neg Urine Ketones Negative Urine Blood Small Urine Nitrate Negative Urine Bilirubin Negative Urine Urobilinogen 2.0 H Ur Leukocyte Esterase Mod Urine RBC (Auto) 1 Urine Microscopic WBC 38 H Ur Squamous Epith Cells 2 Hyaline Casts 0-2 Influenza Typ A,B (EIA) Grp A Beta Strep Ag Blood Type Blood Type Confirm A POSITIVE Antibody Screen BBK History Checked Assessment & Plan - Assessment and Plan (Free Text) Assessment: 51F with occlusive thrombus of right IJ from skull base to SVC as seen on CT scan. Port-catheter within Right IJ Plan: - Recommend anticoagulation
--- NOTE | 2017-07-26 19:14 | CP.PCM.HP ---
History of Present Illness - History of Present Illness History of Present Illness: CC: THROAT / NECK PAIN HPI: 51 year old female PMH HTN, Breast CA with mets on PO chemo, Zometa via port, presents to the ED complaining of mod to severe pain radiating down from R ear to the right side of her throat upon waking up this morning. She also reports pain with swallowing. Pt attempted to take Tylenol with Codeine with no relief. CT showed R IJ thrombus extending from base of skull to subclavian. Pt initiated on Heparin drip. Dr. Gamez Vascular Surgery consulted for possible port removal. Dr. Estrella away, Dr. Arie Chua consulted for Heme Onc. ED physician discussed with IR, recommend anticoagulation, no intervention per IR at this time. HD stable, NAD. PMD: Dr. Kurtis Gonsalez Heme/Onc: Dr. Nawaf Shrestha PMH: HTN, breast Ca w/ mets on chemotherapy PSH: left breast mastectomy Fam: denies family history of cancer Soc: former smoker, quit 4 years ago, smoked 1/2 pack/day for 30 years, denies alcohol and drugs Meds: see med list allergies: NKDA ROS: per HPI, all other systems otherwise neg Present on Admission - Present on Admission Any Indicators Present on Admission: No Past Patient History - Infectious Disease Hx of Infectious Diseases: None - Past Medical History & Family History Past Medical History?: Yes - Past Social History Alcohol: None Drugs: Denies - CARDIAC Hx Hypercholesterolemia: Yes Hx Hypertension: Yes - PULMONARY Hx Pneumonia: Yes - NEUROLOGICAL Hx Neurological Disorder: Yes - HEENT Hx HEENT Problems: Yes - RENAL Hx Chronic Kidney Disease: No - ENDOCRINE/METABOLIC Hx Endocrine Disorders: No - HEMATOLOGICAL/ONCOLOGICAL Hx Anemia: Yes - INTEGUMENTARY Hx Dermatological Problems: No - MUSCULOSKELETAL/RHEUMATOLOGICAL Hx Falls: No - GASTROINTESTINAL Hx Gastritis: Yes - GENITOURINARY/GYNECOLOGICAL Hx Genitourinary Disorders: No - PSYCHIATRIC Hx Psychophysiologic Disorder: No Hx Substance Use: No - SURGICAL HISTORY Hx Surgeries: Yes Hx Mastectomy: Yes (left) Hx Tubal Ligation: Yes Other/Comment: left mastectomy 2004 - ANESTHESIA Hx Anesthesia: Yes Hx Anesthesia Reactions: No Hx Malignant Hyperthermia: No Meds Allergies/Adverse Reactions: Allergies Allergy/AdvReac Type Severity Reaction Status Date / Time No Known Allergies Allergy Verified 07/09/17 12:16 Physical Exam - Constitutional Appears: Non-toxic, No Acute Distress - Head Exam Head Exam: ATRAUMATIC, NORMOCEPHALIC - Eye Exam Eye Exam: EOMI, Normal appearance, PERRL Pupil Exam: NORMAL ACCOMODATION - ENT Exam ENT Exam: Mucous Membranes Moist, Normal Oropharynx - Neck Exam Neck exam: Positive for: Tenderness. Negative for: Lymphadenopathy - Respiratory Exam Respiratory Exam: Clear to Auscultation Bilateral, NORMAL BREATHING PATTERN - Cardiovascular Exam Cardiovascular Exam: RRR, +S1, +S2 - GI/Abdominal Exam GI & Abdominal Exam: Normal Bowel Sounds, Soft. absent: Mass - Extremities Exam Extremities exam: Positive for: normal capillary refill, pedal pulses present - Back Exam Back exam: absent: CVA tenderness (L), CVA tenderness (R) - Neurological Exam Neurological exam: Alert, Oriented x3 - Psychiatric Exam Psychiatric exam: Normal Affect, Normal Mood - Skin Skin Exam: Dry, Normal Color, Warm Results - Vital Signs Recent Vital Signs: Last Vital Signs Temp 98.0 F 07/26/17 12:30 Pulse 93 H 07/26/17 15:43 Resp 18 07/26/17 15:43 BP 126/64 07/26/17 15:43 Pulse Ox 97 07/26/17 18:57 - Labs Result Diagrams: 07/27/17 06:24 07/27/17 06:24 Labs: Laboratory Results - last 24 hr 07/26/17 07/26/17 07/26/17 12:54 13:00 13:00 WBC RBC Hgb Hct MCV MCH MCHC RDW Plt Count MPV Neut % (Auto) Lymph % (Auto) [place] % (Auto) Eos % (Auto) Baso % (Auto) Neut # (Auto) Lymph # (Auto) [place] # (Auto) Eos # (Auto) Baso # (Auto) PT INR APTT pO2 47 VBG pH 7.43 VBG pCO2 39 L VBG HCO3 25.7 VBG Total CO2 27.1 VBG O2 Sat (Calc) 86.3 H VBG Base Excess 1.6 VBG Potassium 3.8 Sodium 136.0 Chloride 104.0 Glucose 159 H Lactate 1.8 FiO2 21.0 Potassium Carbon Dioxide Anion Gap BUN Creatinine Est GFR ( Amer) Est GFR (Non-Af Amer) Random Glucose Calcium Total Bilirubin AST ALT Alkaline Phosphatase Total Protein Albumin Globulin Albumin/Globulin Ratio TSH 3rd Generation Venous Blood Potassium 3.8 Urine Color Urine Clarity Urine pH Ur Specific [place] Urine Protein Urine Glucose (UA) Urine Ketones Urine Blood Urine Nitrate Urine Bilirubin Urine Urobilinogen Ur Leukocyte Esterase Urine RBC (Auto) Urine Microscopic WBC Ur Squamous Epith Cells Hyaline Casts Influenza Typ A,B (EIA) Negative for flu a/b Grp A Beta Strep Ag Negative Blood Type Blood Type Confirm Antibody Screen BBK History Checked 07/26/17 07/26/17 07/26/17 13:00 13:00 13:00 WBC 10.1 RBC 4.11 Hgb 13.3 Hct 38.6 MCV 93.8 MCH 32.3 H MCHC 34.4 RDW 16.7 H Plt Count 225 MPV 7.8 Neut % (Auto) 74.1 Lymph % (Auto) 17.4 L [place] % (Auto) 7.3 Eos % (Auto) 1.0 Baso % (Auto) 0.2 Neut # (Auto) 7.5 H Lymph # (Auto) 1.8 [place] # (Auto) 0.7 Eos # (Auto) 0.1 Baso # (Auto) 0.0 PT INR APTT pO2 VBG pH VBG pCO2 VBG HCO3 VBG Total CO2 VBG O2 Sat (Calc) VBG Base Excess VBG Potassium Sodium 139 Chloride 101 Glucose Lactate FiO2 Potassium 4.1 Carbon Dioxide 22 Anion Gap 20 BUN 13 Creatinine 0.6 L Est GFR ( Amer) > 60 Est GFR (Non-Af Amer) > 60 Random Glucose 153 H Calcium 8.9 Total Bilirubin 0.6 AST 29 ALT 33 Alkaline Phosphatase 48 Total Protein 7.1 Albumin 3.8 Globulin 3.4 Albumin/Globulin Ratio 1.1 TSH 3rd Generation 1.62 Venous Blood Potassium Urine Color Urine Clarity Urine pH Ur Specific [place] Urine Protein Urine Glucose (UA) Urine Ketones Urine Blood Urine Nitrate Urine Bilirubin Urine Urobilinogen Ur Leukocyte Esterase Urine RBC (Auto) Urine Microscopic WBC Ur Squamous Epith Cells Hyaline Casts Influenza Typ A,B (EIA) Grp A Beta Strep Ag Blood Type A POSITIVE Blood Type Confirm Antibody Screen Negative BBK History Checked No verified bt 07/26/17 07/26/17 07/26/17 13:05 13:40 18:04 WBC RBC Hgb Hct MCV MCH MCHC RDW Plt Count MPV Neut % (Auto) Lymph % (Auto) [place] % (Auto) Eos % (Auto) Baso % (Auto) Neut # (Auto) Lymph # (Auto) [place] # (Auto) Eos # (Auto) Baso # (Auto) PT 12.1 INR 1.1 APTT 26.6 pO2 VBG pH VBG pCO2 VBG HCO3 VBG Total CO2 VBG O2 Sat (Calc) VBG Base Excess VBG Potassium Sodium Chloride Glucose Lactate FiO2 Potassium Carbon Dioxide Anion Gap BUN Creatinine Est GFR ( Amer) Est GFR (Non-Af Amer) Random Glucose Calcium Total Bilirubin AST ALT Alkaline Phosphatase Total Protein Albumin Globulin Albumin/Globulin Ratio TSH 3rd Generation Venous Blood Potassium Urine Color Kizzy Urine Clarity Cloudy Urine pH 5.0 Ur Specific [place] 1.029 Urine Protein 30 Urine Glucose (UA) Neg Urine Ketones Negative Urine Blood Small Urine Nitrate Negative Urine Bilirubin Negative Urine Urobilinogen 2.0 H Ur Leukocyte Esterase Mod Urine RBC (Auto) 1 Urine Microscopic WBC 38 H Ur Squamous Epith Cells 2 Hyaline Casts 0-2 Influenza Typ A,B (EIA) Grp A Beta Strep Ag Blood Type Blood Type Confirm A POSITIVE Antibody Screen BBK History Checked Assessment & Plan - Assessment and Plan (Free Text) Plan: 51 year old female PMH HTN, Breast CA with mets on PO chemo, Zometa via port, presents to the ED complaining of mod to severe pain radiating down from R ear to the right side of her throat upon waking up this morning. She also reports pain with swallowing. Pt attempted to take Tylenol with Codeine with no relief. CT showed R IJ thrombus extending from base of skull to subclavian. Pt initiated on Heparin drip. Dr. Gamez Vascular Surgery consulted for possible port removal. Dr. Sameer boucher, Dr. Arie Chua consulted for Heme Onc. ED physician discussed with IR, recommend anticoagulation, no intervention per IR at this time. HD stable, NAD. R IJ DVT - cont heparin drip in anticipation of possible port removal by Vascular Surgery in OR? - Dr. Gamez Vascular consult appreciated - Dr. Arie Chua Heme Onc consult appreciated - IR consult appreciated Breast Ca - cont PO chemo meds HTN - cont Toprol Heparin Drip
--- NOTE | 2017-07-26 19:20 | CT ---
PROCEDURE: CT NECK WITH CONTRAST HISTORY: R sided sore throat COMPARISON: None TECHNIQUE: CT of the neck with intravenous contrast. Coronal and sagittal reformats generated. Intravenous contrast dose: Radiation dose: DLP mGy-cm This CT exam was performed using one or more of the following dose reduction techniques: Automated exposure control, adjustment of the mA and/or kV according to patient size, and/or use of iterative reconstruction technique. FINDINGS: NASOPHARYNX: Unremarkable. SUPRAHYOID NECK: Unremarkable oropharynx, oral cavity, parapharyngeal space and retropharyngeal space. INFRAHYOID NECK: Unremarkable larynx, hypopharynx, and supraglottic space. Vocal cords intact. MASS: None. GLANDS: Parotid and submandibular glands unremarkable. Normal size thyroid gland, without nodule. LYMPH NODES: Normal. No lymphadenopathy. CERVICAL SPINE: No fracture or focal lesion. VASCULAR STRUCTURES: Thrombus in the right internal jugular vein extending into the superior vena cava. Central venous catheter in the right superior vena cava an internal jugular vein. OTHER FINDINGS: None. IMPRESSION: Thrombus in the right internal jugular vein extending into the superior vena cava. Central venous catheter in the right superior vena cava an internal jugular vein.
[2017-07-26] MEDS ORDERED: Acetaminophen-Codeine 300/30 mg Tab PO PRN (19:38)
[2017-07-26] MEDS ORDERED: Oxycodone/Acetaminophen 5/325 mg Tab PO PRN (21:18)
[2017-07-27] MEDS: CAPECITABINE 500 MG PO SCH ×3 (06:23→21:21)
[2017-07-27 06:34] LABS: HEMOGLOBIN 11.9 g/dL (12.0-16.0); MEAN CELL VOLUME 93.2 fl (81.0-99.0); MEAN CORPUSCULAR HEMOGLOBIN 32.6 pg (27.0-31.0); RBC 3.65 Mil/uL (3.80-5.20); RED CELL DISTRIBUTION WIDTH 16.7 % (11.5-14.5); WHITE BLOOD COUNT 10.6 K/uL (4.8-10.8)
[2017-07-27 07:00] LABS: BLOOD UREA NITROGEN 10 mg/dl (7-17); CALCIUM 8.2 mg/dL (8.4-10.2); GFR AFRICAN-AMERICAN > 60; GFR NON-AFRICAN AMERICAN > 60
[2017-07-27 07:55] VITALS: RESP 18
[2017-07-27] MEDS ORDERED: CAPECITABINE 500 MG PO SCH (09:00)
[2017-07-27] MEDS: Calcium-Vit D 500 mg-200 Units Tab UD PO SCH ×2 (09:00→16:16)
--- NOTE | 2017-07-27 09:29 | CP.PCM.PN ---
Subjective - Date & Time of Evaluation Date of Evaluation: 07/27/17 Time of Evaluation: 09:29 - Subjective Subjective: pt stable this morning denies pain no cp, dyspnea, vitals reviewed and stable Objective - Vital Signs/Intake and Output Vital Signs (last 24 hours): Temp Pulse Resp BP Pulse Ox 98.7 F 103 H 18 115/79 96 07/27/17 07:54 07/27/17 07:54 07/27/17 07:54 07/27/17 07:54 07/27/17 07:54 Intake and Output: 07/27/17 07/27/17 06:59 18:59 Intake Total 50 Balance 50 - Medications Medications: Current Medications Acetaminophen/Codeine Phosphate (Tylenol/Codeine 300 Mg/30 Mg) 1 tab PO Q6H PRN PRN Reason: Pain, severe (8-10) Ezetimibe (Zetia) 10 mg PO DAILY [facility] Home Med (Calcium Carbonate/Vitamin D3 [Calcium 600-Vit D3 500 Softgel]) 1 each PO BID [facility] Home Med (Capecitabine [Capecitabine]) 1 tab PO Q12 [facility] Last Admin: 07/27/17 06:23 Dose: Not Given Home Med (Letrozole [Femara]) 2.5 mg PO DAILY [facility] Heparin Sodium/Dextrose (Heparin 25,000 Units/250ml In D5w) 25,000 units in 250 mls @ 16.9 mls/hr IV .[id number] [facility]; 1,690 UNITS/HR PRN Reason: Protocol Last Titration: 07/27/17 05:02 Dose: 1,390 units/hr, 13.9 mls/hr Ketorolac Tromethamine (Toradol) 30 mg IVP Q6 PRN PRN Reason: Pain, moderate (4-7) Stop: 07/29/17 06:31 Last Admin: 07/27/17 07:58 Dose: 30 mg Metoclopramide HCl (Reglan) 5 mg PO TID PRN PRN Reason: Nausea/Vomiting Metoprolol Succinate (Toprol Xl) 25 mg PO DAILY [facility] Ondansetron HCl (Zofran Odt) 4 mg PO Q6 PRN PRN Reason: Nausea/Vomiting Pantoprazole Sodium (Protonix Ec Tab) 40 mg PO DAILY [facility] - Labs Labs: 07/27/17 06:24 07/27/17 06:24 PT 12.1 Seconds (9.8-13.1) 07/26/17 18:04 INR 1.1 (0.9-1.2) 07/26/17 18:04 APTT 108.6 Seconds (25.6-37.1) H* D 07/27/17 02:53 - Head Exam Additional comments: Vitals Reviewed GEN: WDWN, alert, cooperative HEENT: NCAT, PERRL, EOMI HEART: RRR, +S1S2, NO MRG LUNG: CTAB, NO WRR ABD: soft, NT, ND, No HSM, No masses EXT: normal pedal pulses, normal capillary refill NEURO: awake, alert, no focal deficits SKIN: warm, dry- PSYCH: normal mood, normal affect Assessment and Plan - Assessment and Plan (Free Text) Plan: 51 year old female PMH HTN, Breast CA with mets on PO chemo, Zometa via port, presents to the ED complaining of mod to severe pain radiating down from R ear to the right side of her throat upon waking up this morning. She also reports pain with swallowing. Pt attempted to take Tylenol with Codeine with no relief. CT showed R IJ thrombus extending from base of skull to subclavian. Pt initiated on Heparin drip. Dr. Gamez Vascular Surgery consulted for possible port removal. Dr. Estrella away, Dr. Arie Chua consulted for Heme Onc. ED physician discussed with IR, recommend anticoagulation, no intervention per IR at this time. HD stable, NAD. R IJ DVT - cont heparin drip for now - Port placed August 2016, by IR - Dr. Arie Chua Heme Onc consult and IR consult with Dr. Angel ye as well. Discussed with both teams, removal of port not necessary at this time, we may continue anticoagulation with port in place. Repeat US in one week and reevaluate. - PO / NOAC for home? - Dr. Gamez Vascular consult- recommends continuation of heparin drip. Breast Ca - cont PO chemo meds: Capecitabine, Femara, HTN - cont Toprol Heparin Drip
[2017-07-27] MEDS: Metoprolol Succinate 25 mg XL Tab PO SCH (09:34)
[2017-07-27] MEDS: Pantoprazole 40 mg EC Tab PO SCH (09:35)
--- NOTE | 2017-07-27 13:11 | CP.PCM.PN ---
Subjective - Date & Time of Evaluation Date of Evaluation: 07/27/17 Time of Evaluation: 13:07 - Subjective Subjective: vascular Surgery Pt seen and examined. Denies SOB, CP. Resting comfortably. On Heparin drip. Objective - Vital Signs/Intake and Output Vital Signs (last 24 hours): Temp Pulse Resp BP Pulse Ox 98.4 F 93 H 18 103/71 95 07/27/17 12:06 07/27/17 12:06 07/27/17 12:06 07/27/17 12:06 07/27/17 12:06 Intake and Output: 07/27/17 07/27/17 06:59 18:59 Intake Total 50 Balance 50 - Medications Medications: Current Medications Acetaminophen/Codeine Phosphate (Tylenol/Codeine 300 Mg/30 Mg) 1 tab PO Q6H PRN PRN Reason: Pain, severe (8-10) Ezetimibe (Zetia) 10 mg PO DAILY [facility] Last Admin: 07/27/17 09:35 Dose: 10 mg Home Med (Calcium Carbonate/Vitamin D3 [Calcium 600-Vit D3 500 Softgel]) 1 each PO BID [facility] Home Med (Capecitabine [Capecitabine]) 1 tab PO Q12 [facility] Last Admin: 07/27/17 09:33 Dose: 1 tab Home Med (Letrozole [Femara]) 2.5 mg PO DAILY [facility] Heparin Sodium/Dextrose (Heparin 25,000 Units/250ml In D5w) 25,000 units in 250 mls @ 16.9 mls/hr IV .[id number] [facility]; 1,690 UNITS/HR PRN Reason: Protocol Last Titration: 07/27/17 05:02 Dose: 1,390 units/hr, 13.9 mls/hr Ketorolac Tromethamine (Toradol) 30 mg IVP Q6 PRN PRN Reason: Pain, moderate (4-7) Stop: 07/29/17 06:31 Last Admin: 07/27/17 07:58 Dose: 30 mg Metoclopramide HCl (Reglan) 5 mg PO TID PRN PRN Reason: Nausea/Vomiting Metoprolol Succinate (Toprol Xl) 25 mg PO DAILY [facility] Last Admin: 07/27/17 09:34 Dose: 25 mg Ondansetron HCl (Zofran Odt) 4 mg PO Q6 PRN PRN Reason: Nausea/Vomiting Pantoprazole Sodium (Protonix Ec Tab) 40 mg PO DAILY [facility] Last Admin: 07/27/17 09:35 Dose: 40 mg - Labs Labs: 07/27/17 06:24 07/27/17 06:24 PT 12.1 Seconds (9.8-13.1) 07/26/17 18:04 INR 1.1 (0.9-1.2) 07/26/17 18:04 APTT 65.4 Seconds (25.6-37.1) H D 07/27/17 10:43 - Constitutional Appears: No Acute Distress - Head Exam Head Exam: ATRAUMATIC, NORMAL INSPECTION, NORMOCEPHALIC - Eye Exam Eye Exam: EOMI, Normal appearance, PERRL Pupil Exam: NORMAL ACCOMODATION, PERRL - ENT Exam ENT Exam: Mucous Membranes Moist, Normal Exam - Neck Exam Neck Exam: Full ROM, Normal Inspection. absent: Lymphadenopathy Additional comments: RIJ portacath in place. No signs of infection . - Cardiovascular Exam Cardiovascular Exam: REGULAR RHYTHM, +S1, +S2. absent: Murmur - GI/Abdominal Exam GI & Abdominal Exam: Soft, Normal Bowel Sounds. absent: Distended, Tenderness - Extremities Exam Extremities Exam: Full ROM, Normal Capillary Refill, Normal Inspection. absent : Joint Swelling, Pedal Edema - Back Exam Back Exam: NORMAL INSPECTION - Neurological Exam Neurological Exam: Alert, Awake, CN II-XII Intact, Normal Gait, Oriented x3 - Psychiatric Exam Psychiatric exam: Normal Affect, Normal Mood - Skin Skin Exam: Dry, Intact, Normal Color, Warm Assessment and Plan - Assessment and Plan (Free Text) Assessment: 51F with occlusive thrombus of right IJ from skull base to SVC as seen on CT scan. Port-catheter within Right IJ Plan: - Recommend anticoagulation WIll TIFFANIE Gamez
--- NOTE | 2017-07-27 14:32 | PCM.IRP ---
History of Present Illness - History of Present Illness History of Present Illness: IR consulted for Pt Mario RIJ thrombus and port removal. Internal jugular vein thrombosis related to central venous catheter ( Port, HD catheters, TLC) is very common. The CT scan was reviewed. There is extensive IJV thrombus. Recommendation at this point is continue anticoagulation. Will evaluate Pt for port removal after at least one week on anticoagulation or Pt becomes symptomatic. Venous duplex of the neck. Objective - Vital Signs/Intake and Output Vital Signs (last 24 hours): Vital Signs - 24 hr 07/26/17 07/26/17 07/26/17 15:43 19:30 21:20 Temperature 99.7 F H 98.6 F Pulse Rate 93 H 100 H 96 H Respiratory 18 20 18 Rate Blood Pressure 126/64 126/62 115/72 O2 Sat by Pulse 99 98 98 Oximetry 07/26/17 07/26/17 07/26/17 21:30 21:51 22:52 Temperature 98.7 F Pulse Rate 102 H 107 H Respiratory 18 20 Rate Blood Pressure 122/85 O2 Sat by Pulse 96 97 Oximetry 07/27/17 07/27/17 07/27/17 00:04 00:37 04:51 Temperature 99.8 F H 99.8 F H 99.4 F Pulse Rate 104 H 104 H 98 H Respiratory 16 16 17 Rate Blood Pressure 107/67 107/67 107/74 O2 Sat by Pulse 99 98 Oximetry 07/27/17 07/27/17 07:54 12:06 Temperature 98.7 F 98.4 F Pulse Rate 103 H 93 H Respiratory 18 18 Rate Blood Pressure 115/79 103/71 O2 Sat by Pulse 96 95 Oximetry Intake and Output (last 12 hours): Intake & Output 07/26/17 07/27/17 07/27/17 18:59 06:59 18:59 Intake Total 50 Balance 50 Weight 207 lb Intake: IV 50 - Medications Medications: Current Medications Acetaminophen/Codeine Phosphate (Tylenol/Codeine 300 Mg/30 Mg) 1 tab PO Q6H PRN PRN Reason: Pain, severe (8-10) Ezetimibe (Zetia) 10 mg PO DAILY [facility] Last Admin: 07/27/17 09:35 Dose: 10 mg Home Med (Calcium Carbonate/Vitamin D3 [Calcium 600-Vit D3 500 Softgel]) 1 each PO BID [facility] Home Med (Capecitabine [Capecitabine]) 1 tab PO Q12 [facility] Last Admin: 07/27/17 09:33 Dose: 1 tab Home Med (Letrozole [Femara]) 2.5 mg PO DAILY [facility] Heparin Sodium/Dextrose (Heparin 25,000 Units/250ml In D5w) 25,000 units in 250 mls @ 16.9 mls/hr IV .[id number] [facility]; 1,690 UNITS/HR PRN Reason: Protocol Last Titration: 07/27/17 05:02 Dose: 1,390 units/hr, 13.9 mls/hr Ketorolac Tromethamine (Toradol) 30 mg IVP Q6 PRN PRN Reason: Pain, moderate (4-7) Stop: 07/29/17 06:31 Last Admin: 07/27/17 07:58 Dose: 30 mg Metoclopramide HCl (Reglan) 5 mg PO TID PRN PRN Reason: Nausea/Vomiting Metoprolol Succinate (Toprol Xl) 25 mg PO DAILY [facility] Last Admin: 07/27/17 09:34 Dose: 25 mg Ondansetron HCl (Zofran Odt) 4 mg PO Q6 PRN PRN Reason: Nausea/Vomiting Pantoprazole Sodium (Protonix Ec Tab) 40 mg PO DAILY [facility] Last Admin: 07/27/17 09:35 Dose: 40 mg - Labs Labs (last 24 hours): Laboratory Results - last 24 hr 07/26/17 07/26/17 07/26/17 13:00 13:40 18:04 WBC RBC Hgb Hct MCV MCH MCHC RDW Plt Count PT 12.1 INR 1.1 APTT 26.6 Sodium Potassium Chloride Carbon Dioxide Anion Gap BUN Creatinine Est GFR ( Amer) Est GFR (Non-Af Amer) Random Glucose Calcium Blood Type A POSITIVE Blood Type Confirm A POSITIVE Antibody Screen Negative 07/27/17 07/27/17 07/27/17 02:53 06:24 06:24 WBC 10.6 RBC 3.65 L Hgb 11.9 L Hct 34.0 MCV 93.2 MCH 32.6 H MCHC 35.0 RDW 16.7 H Plt Count 196 PT INR APTT 108.6 H* D Sodium 139 Potassium 3.9 Chloride 101 Carbon Dioxide 26 Anion Gap 16 BUN 10 Creatinine 0.6 L Est GFR ( Amer) > 60 Est GFR (Non-Af Amer) > 60 Random Glucose 106 H Calcium 8.2 L Blood Type Blood Type Confirm Antibody Screen 07/27/17 10:43 WBC RBC Hgb Hct MCV MCH MCHC RDW Plt Count PT INR APTT 65.4 H D Sodium Potassium Chloride Carbon Dioxide Anion Gap BUN Creatinine Est GFR ( Amer) Est GFR (Non-Af Amer) Random Glucose Calcium Blood Type Blood Type Confirm Antibody Screen
[2017-07-27] MEDS: Heparin 25,000units in D5W 25,000 UNITS/250 ML BAG IV SCH (16:00)
[2017-07-27] MEDS: LETROZOLE 2.5 MG PO SCH (16:16)
--- NOTE | 2017-07-27 16:35 | CARD ---
APPROVED REPORT EKG Measurement Heart [id number] <Conclusion> Sinus tachycardia Cannot rule out Inferior infarct, age undetermined Abnormal ECG
[2017-07-28 06:04] LABS: HEMOGLOBIN 11.2 g/dL (12.0-16.0); MEAN CELL VOLUME 94.6 fl (81.0-99.0); MEAN CORPUSCULAR HEMOGLOBIN 32.5 pg (27.0-31.0); MEAN CORPUSCULAR HGB CONC 34.4 g/dL (33.0-37.0); RBC 3.45 Mil/uL (3.80-5.20); RED CELL DISTRIBUTION WIDTH 16.9 % (11.5-14.5); WHITE BLOOD COUNT 8.3 K/uL (4.8-10.8)
--- NOTE | 2017-07-28 08:49 | CP.PCM.CON ---
History of Present Illness - History of Present Illness History of Present Illness: Covering Dr. 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 The patient is currently receiving chemotherapy with Dr. Shrestha. She reports to tolerating her treatments well. She is currently on therapeutic anticoagulation and reports to intermittent right neck pain and hearing changes. Past medical history: Stage IV breast cancer Past surgical history: Left mastectomy, portacath Family history: Denies hematologic and oncologic problems Social history: Denies tobacco, alcohol, and illicit drug use. Allergies: NKA Review of systems: All remaining review of systems including HEENT, cardiovascular, respiratory, gastrointestinal, genitourinary, musculoskeletal, dermatologic, neurologic, and psychiatric are negative unless mentioned in the HPI. Past Patient History - Infectious Disease Hx of Infectious Diseases: None - Past Medical History & Family History Past Medical History?: Yes - Past Social History Alcohol: None Drugs: Denies - CARDIAC Hx Hypercholesterolemia: Yes Hx Hypertension: Yes - PULMONARY Hx Pneumonia: Yes - NEUROLOGICAL Hx Neurological Disorder: Yes - HEENT Hx HEENT Problems: Yes - RENAL Hx Chronic Kidney Disease: No - ENDOCRINE/METABOLIC Hx Endocrine Disorders: No - HEMATOLOGICAL/ONCOLOGICAL Hx Anemia: Yes - INTEGUMENTARY Hx Dermatological Problems: No - MUSCULOSKELETAL/RHEUMATOLOGICAL Hx Falls: No - GASTROINTESTINAL Hx Gastritis: Yes - GENITOURINARY/GYNECOLOGICAL Hx Genitourinary Disorders: No - PSYCHIATRIC Hx Psychophysiologic Disorder: No Hx Substance Use: No - SURGICAL HISTORY Hx Surgeries: Yes Hx Mastectomy: Yes (left) Hx Tubal Ligation: Yes Other/Comment: left mastectomy 2003 - ANESTHESIA Hx Anesthesia: Yes Hx Anesthesia Reactions: No Hx Malignant Hyperthermia: No Meds Home Medications: Home Medication List Medication Instructions Recorded Confirmed Type Apixaban [Eliquis] 5 mg PO BID #74 tab 07/28/17 Rx oxyCODONE/Acetaminophen [Percocet 1 ea PO Q6 PRN #20 tab 07/28/17 Rx 5/325 mg Tab] Allergies/Adverse Reactions: Allergies Allergy/AdvReac Type Severity Reaction Status Date / Time No Known Allergies Allergy Verified 07/09/17 12:16 - Medications Medications: Current Medications Acetaminophen/Codeine Phosphate (Tylenol/Codeine 300 Mg/30 Mg) 1 tab PO Q6H PRN PRN Reason: Pain, severe (8-10) Calcium/Vitamin D (Oyster Shell Calcium/Vitamin D 500 Mg-200 Iu) 1 tab PO BID [facility] Last Admin: 07/27/17 16:16 Dose: 1 tab Ezetimibe (Zetia) 10 mg PO DAILY [facility] Last Admin: 07/27/17 09:35 Dose: 10 mg Home Med (Capecitabine [Capecitabine]) 1 tab PO Q12 [facility] Last Admin: 07/27/17 21:21 Dose: 1 tab Home Med (Letrozole [Femara]) 2.5 mg PO DAILY [facility] Last Admin: 07/27/17 16:16 Dose: 2.5 mg Ketorolac Tromethamine (Toradol) 30 mg IVP Q6 PRN PRN Reason: Pain, moderate (4-7) Stop: 07/29/17 06:31 Last Admin: 07/28/17 03:05 Dose: 30 mg Metoclopramide HCl (Reglan) 5 mg PO TID PRN PRN Reason: Nausea/Vomiting Metoprolol Succinate (Toprol Xl) 25 mg PO DAILY [facility] Last Admin: 07/27/17 09:34 Dose: 25 mg Ondansetron HCl (Zofran Odt) 4 mg PO Q6 PRN PRN Reason: Nausea/Vomiting Pantoprazole Sodium (Protonix Ec Tab) 40 mg PO DAILY [facility] Last Admin: 07/27/17 09:35 Dose: 40 mg Physical Exam - Head Exam Head Exam: ATRAUMATIC - Eye Exam Eye Exam: Normal appearance - ENT Exam ENT Exam: Mucous Membranes Dry - Respiratory Exam Respiratory Exam: NORMAL BREATHING PATTERN - Cardiovascular Exam Cardiovascular Exam: +S1, +S2 - GI/Abdominal Exam GI & Abdominal Exam: Normal Bowel Sounds Results - Vital Signs Recent Vital Signs: Last Vital Signs Temp 97.6 F 07/28/17 08:03 Pulse 96 H 07/28/17 08:03 Resp 18 07/28/17 08:03 BP 106/72 07/28/17 08:03 Pulse Ox 96 07/28/17 08:03 - Labs Result Diagrams: 07/28/17 05:30 07/27/17 06:24 Labs: Laboratory Results - last 24 hr 07/27/17 07/27/17 07/28/17 10:43 16:58 05:30 WBC 8.3 RBC 3.45 L Hgb 11.2 L Hct 32.6 L MCV 94.6 MCH 32.5 H MCHC 34.4 RDW 16.9 H Plt Count 206 APTT 65.4 H D 63.9 H 07/28/17 05:30 WBC RBC Hgb Hct MCV MCH MCHC RDW Plt Count APTT 92.2 H D Assessment & Plan (1) Internal jugular vein thrombosis Assessment and Plan: provoked from malignancy port not to be removed for now trial of anticoagulation for 1-2 weeks followed by repeat imaging if symptoms worsen, to have port removed Status: Acute (2) Breast cancer Assessment and Plan: stage IV outpatient treatment with Dr. Shrestha. Status: Acute
[2017-07-28] MEDS: LETROZOLE 2.5 MG PO SCH (09:17)
[2017-07-28] MEDS: CAPECITABINE 500 MG PO SCH (09:17)
[2017-07-28] MEDS: Metoprolol Succinate 25 mg XL Tab PO SCH (09:18)
[2017-07-28] MEDS: Pantoprazole 40 mg EC Tab PO SCH (09:18)
[2017-07-28] MEDS: Calcium-Vit D 500 mg-200 Units Tab UD PO SCH (09:18)
--- NOTE | 2017-07-28 09:40 | CP.PCM.PN ---
Objective - Vital Signs/Intake and Output Vital Signs (last 24 hours): Temp Pulse Resp BP Pulse Ox 97.6 F 96 H 18 106/72 96 07/28/17 08:03 07/28/17 08:03 07/28/17 08:03 07/28/17 08:03 07/28/17 08:03 - Medications Medications: Current Medications Acetaminophen/Codeine Phosphate (Tylenol/Codeine 300 Mg/30 Mg) 1 tab PO Q6H PRN PRN Reason: Pain, severe (8-10) Calcium/Vitamin D (Oyster Shell Calcium/Vitamin D 500 Mg-200 Iu) 1 tab PO BID [facility] Last Admin: 07/28/17 09:18 Dose: 1 tab Ezetimibe (Zetia) 10 mg PO DAILY [facility] Last Admin: 07/28/17 09:19 Dose: 10 mg Home Med (Capecitabine [Capecitabine]) 1 tab PO Q12 [facility] Last Admin: 07/28/17 09:17 Dose: 1 tab Home Med (Letrozole [Femara]) 2.5 mg PO DAILY [facility] Last Admin: 07/28/17 09:17 Dose: 2.5 mg Ketorolac Tromethamine (Toradol) 30 mg IVP Q6 PRN PRN Reason: Pain, moderate (4-7) Stop: 07/29/17 06:31 Last Admin: 07/28/17 09:21 Dose: 30 mg Metoclopramide HCl (Reglan) 5 mg PO TID PRN PRN Reason: Nausea/Vomiting Metoprolol Succinate (Toprol Xl) 25 mg PO DAILY [facility] Last Admin: 07/28/17 09:18 Dose: Not Given Ondansetron HCl (Zofran Odt) 4 mg PO Q6 PRN PRN Reason: Nausea/Vomiting Pantoprazole Sodium (Protonix Ec Tab) 40 mg PO DAILY [facility] Last Admin: 07/28/17 09:18 Dose: 40 mg - Labs Labs: 07/28/17 05:30 07/27/17 06:24 PT 12.1 Seconds (9.8-13.1) 07/26/17 18:04 INR 1.1 (0.9-1.2) 07/26/17 18:04 APTT 92.2 Seconds (25.6-37.1) H D 07/28/17 05:30 Assessment and Plan - Assessment and Plan (Free Text) Assessment: 51 year old female PMH HTN, Breast CA with mets on PO chemo, Zometa via port, presents to the ED complaining of mod to severe pain radiating down from R ear to the right side of her throat upon waking up this morning. She also reports pain with swallowing. Pt attempted to take Tylenol with Codeine with no relief. CT showed R IJ thrombus extending from base of skull to subclavian. Pt initiated on Heparin drip. Dr. Gamez Vascular Surgery consulted for possible port removal. Dr. Estrella away, Dr. Arie Chua consulted for Heme Onc. ED physician discussed with IR, recommend anticoagulation, no intervention per IR at this time. HD stable, NAD. Thrombus in the right internal jugular vein extending into the superior vena cava. Central venous catheter in the right superior vena cava an internal jugular vein. R IJ DVT - cont heparin drip for now - Port placed August 2016, by IR - Dr. Arie Chua Heme Onc consult and IR consult with Dr. Angel ye as well. Discussed with both teams, removal of port not necessary at this time, we may continue anticoagulation with port in place. Repeat US in one week and reevaluate. - PO / NOAC for home? - Dr. Gamez Vascular consult- recommends continuation of heparin drip. Breast Ca - cont PO chemo meds: Capecitabine, Femara, HTN - cont Toprol Heparin Drip
--- NOTE | 2017-07-28 11:41 | CP.PCM.DIS ---
Provider - Provider Date of Admission: 07/26/17 18:39 Attending physician: Alanna Whitten DO Primary care physician: Dr. Gonsalez Consults: Hem/onc vascular surgery IR consult Time Spent in preparation of Discharge (in minutes): 15 Hospital Course - Lab Results Lab Results: Micro Results 07/26/17 13:05 Urine,Clean Catch Urine Culture - Final No Growth (<1,000 CFU/ML) 07/26/17 13:00 Throat Group A Strep Throat Culture - Final NORMAL SAPROPHYTIC RAY. CULTURE NEGATIVE FOR BETA STREP GROUP A. 07/26/17 13:15 Blood-Venous Blood Culture - Preliminary NO GROWTH AFTER 24 HOURS 07/26/17 13:00 Blood-Venous Blood Culture - Preliminary NO GROWTH AFTER 24 HOURS Most Recent Lab Values WBC 8.3 K/uL (4.8-10.8) 07/28/17 05:30 RBC 3.45 Mil/uL (3.80-5.20) L 07/28/17 05:30 Hgb 11.2 g/dL (12.0-16.0) L 07/28/17 05:30 Hct 32.6 % (34.0-47.0) L 07/28/17 05:30 MCV 94.6 fl (81.0-99.0) 07/28/17 05:30 MCH 32.5 pg (27.0-31.0) H 07/28/17 05:30 MCHC 34.4 g/dL (33.0-37.0) 07/28/17 05:30 RDW 16.9 % (11.5-14.5) H 07/28/17 05:30 Plt Count 206 K/uL (130-400) 07/28/17 05:30 MPV 7.8 fl (7.2-11.7) 07/26/17 13:00 Neut % (Auto) 74.1 % (50.0-75.0) 07/26/17 13:00 Lymph % (Auto) 17.4 % (20.0-40.0) L 07/26/17 13:00 [place] % (Auto) 7.3 % (0.0-10.0) 07/26/17 13:00 Eos % (Auto) 1.0 % (0.0-4.0) 07/26/17 13:00 Baso % (Auto) 0.2 % (0.0-2.0) 07/26/17 13:00 Neut # (Auto) 7.5 K/uL (1.8-7.0) H 07/26/17 13:00 Lymph # (Auto) 1.8 K/uL (1.0-4.3) 07/26/17 13:00 [place] # (Auto) 0.7 K/uL (0.0-0.8) 07/26/17 13:00 Eos # (Auto) 0.1 K/uL (0.0-0.7) 07/26/17 13:00 Baso # (Auto) 0.0 K/uL (0.0-0.2) 07/26/17 13:00 PT 12.1 Seconds (9.8-13.1) 07/26/17 18:04 INR 1.1 (0.9-1.2) 07/26/17 18:04 APTT 92.2 Seconds (25.6-37.1) H D 07/28/17 05:30 pO2 47 mm/Hg (30-55) 07/26/17 12:54 VBG pH 7.43 (7.32-7.43) 07/26/17 12:54 VBG pCO2 39 mmHg (40-60) L 07/26/17 12:54 VBG HCO3 25.7 mmol/L 07/26/17 12:54 VBG Total CO2 27.1 mmol/L (22-28) 07/26/17 12:54 VBG O2 Sat (Calc) 86.3 % (40-65) H 07/26/17 12:54 VBG Base Excess 1.6 mmol/L (0.0-2.0) 07/26/17 12:54 VBG Potassium 3.8 mmol/L (3.6-5.2) 07/26/17 12:54 Sodium 136.0 mmol/L (132-148) 07/26/17 12:54 Chloride 104.0 mmol/L (98-107) 07/26/17 12:54 Glucose 159 mg/dL (65-105) H 07/26/17 12:54 Lactate 1.8 mmol/L (0.7-2.1) 07/26/17 12:54 FiO2 21.0 % 07/26/17 12:54 Sodium 139 mmol/l (132-148) 07/27/17 06:24 Potassium 3.9 MMOL/L (3.6-5.0) 07/27/17 06:24 Chloride 101 mmol/L (98-107) 07/27/17 06:24 Carbon Dioxide 26 mmol/L (22-30) 07/27/17 06:24 Anion Gap 16 (10-20) 07/27/17 06:24 BUN 10 mg/dl (7-17) 07/27/17 06:24 Creatinine 0.6 mg/dl (0.7-1.2) L 07/27/17 06:24 Est GFR ( Amer) > 60 07/27/17 06:24 Est GFR (Non-Af Amer) > 60 07/27/17 06:24 Random Glucose 106 mg/dL (65-105) H 07/27/17 06:24 Calcium 8.2 mg/dL (8.4-10.2) L 07/27/17 06:24 Total Bilirubin 0.6 mg/dl (0.2-1.3) 07/26/17 13:00 AST 29 U/L (14-36) 07/26/17 13:00 ALT 33 U/L (9-52) 07/26/17 13:00 Alkaline Phosphatase 48 U/L (38-126) 07/26/17 13:00 Total Protein 7.1 G/DL (6.3-8.2) 07/26/17 13:00 Albumin 3.8 g/dL (3.5-5.0) 07/26/17 13:00 Globulin 3.4 gm/dL (2.2-3.9) 07/26/17 13:00 Albumin/Globulin Ratio 1.1 (1.0-2.1) 07/26/17 13:00 TSH 3rd Generation 1.62 mIU/ML (0.46-4.68) 07/26/17 13:00 Venous Blood Potassium 3.8 mmol/L (3.6-5.2) 07/26/17 12:54 Urine Color Kizzy (YELLOW) 07/26/17 13:05 Urine Clarity Cloudy (Clear) 07/26/17 13:05 Urine pH 5.0 (5.0-8.0) 07/26/17 13:05 Ur Specific [place] 1.029 (1.003-1.030) 07/26/17 13:05 Urine Protein 30 mg/dL (NEGATIVE) 07/26/17 13:05 Urine Glucose (UA) Neg mg/dL (Normal) 07/26/17 13:05 Urine Ketones Negative mg/dL (NEGATIVE) 07/26/17 13:05 Urine Blood Small (NEGATIVE) 07/26/17 13:05 Urine Nitrate Negative (NEGATIVE) 07/26/17 13:05 Urine Bilirubin Negative (NEGATIVE) 07/26/17 13:05 Urine Urobilinogen 2.0 mg/dL (0.2-1.0) H 07/26/17 13:05 Ur Leukocyte Esterase Mod Cynthia/uL (Negative) 07/26/17 13:05 Urine RBC (Auto) 1 /hpf (0-3) 07/26/17 13:05 Urine Microscopic WBC 38 /hpf (0-5) H 07/26/17 13:05 Ur Squamous Epith Cells 2 /hpf (0-5) 07/26/17 13:05 Hyaline Casts 0-2 /hpf (0-2) 07/26/17 13:05 Influenza Typ A,B (EIA) Negative for flu a/b (NEGATIVE) 07/26/17 13:00 Grp A Beta Strep Ag Negative (NEGATIVE) 07/26/17 13:00 Blood Type A POSITIVE 07/26/17 13:00 Blood Type Confirm A POSITIVE 07/26/17 13:40 Antibody Screen Negative 07/26/17 13:00 BBK History Checked No verified bt 07/26/17 13:00 - Hospital Course Hospital Course: 51 year old female with PMH HTN, stage IV Breast CA with mets to liver and brain on PO chemo, presented with right sided head and neck pain that started earlier in the morning radiating down to right ear and throat . She denied dizziness, fevers, chills, chest pain, shortness of breathe or abdominal pain. Patient is stage 4 breast ca diagnosed 2003 and went into remission twice. Patient is currently taking PO chemotherapy agents and last radiation was 6 months ago as per family. Patient's most recent portacath was last used for chemotherapy 6 months ago. Port was placed by IR Dr. Ortiz here in [place] less than a year ago. Patient attempted taking Tylenol with Codeine for pain relief with no improvement .CT neck showed R IJ thrombus extending into the superior vena cava Patient initiated on Heparin drip.Vascuklar surgery , hematology and IR consulted . After discussing with all consultants consensus is to anticoagulate patient and not remove portocath for now since patient has no other access .Recommended to start Eliquis 10 mg po BID for 1 week than 5 mg po BID and discharge home If patient continuous to have symptoms realted with IJ thrombus in 1 week , like DELGADILLO , hear pain etc, portho cath can be removed by IR. All results and plan of care discussed with patient and she agrees with current recommendations. Will discharge patient home . Follow up with Dr. Shrestha in 1 week 1.Right Internal jugular thrombus - most likely provoked , related with porthocath Will anticoagulate for now with eliquis Follow up with Dr. Shrestha in 1 week Percoset PRN for severe DELGADILLO 2. Stage IV breast cancer with liver and brain mets- follow up with Dr. Shrestha on po capecitabine and femara 3.HTN cont Toprol Discharge Exam - Head Exam Head Exam: ATRAUMATIC, NORMOCEPHALIC - Eye Exam Eye Exam: EOMI, Normal appearance, PERRL Pupil Exam: NORMAL ACCOMODATION - ENT Exam ENT Exam: Mucous Membranes Moist, Normal Exam - Neck Exam Neck exam: Full Rom Additional comments: left mastectomy - Respiratory Exam Respiratory Exam: Clear to PA & Lateral. absent: Rales, Rhonchi, Wheezes, NORMAL BREATHING PATTERN - Cardiovascular Exam Cardiovascular Exam: REGULAR RHYTHM, RRR, +S1, +S2. absent: JVD - GI/Abdominal Exam GI & Abdominal Exam: Normal Bowel Sounds, Soft. absent: Distended, Guarding, Rebound, Tenderness - Rectal Exam Rectal Exam: Deferred - Extremities Exam Extremities exam: normal capillary refill, normal inspection, pedal pulses present - Back Exam Back exam: NORMAL INSPECTION - Neurological Exam Neurological exam: Alert, CN II-XII Intact, Oriented x3, Reflexes Normal - Psychiatric Exam Psychiatric exam: Normal Affect - Skin Skin Exam: Dry, Normal Color, Warm Discharge Plan - Discharge Medications Prescriptions: Apixaban [Eliquis] 5 mg PO BID #74 tab oxyCODONE/Acetaminophen [Percocet 5/325 mg Tab] 1 ea PO Q6 PRN #20 tab PRN Reason: Pain, Severe (8-10) - Follow Up Plan Condition: STABLE Disposition: HOME/ ROUTINE Patient education suggested?: Yes Instructions: Neck Pain, Breast Cancer (DC), Apixaban, Deep Venous Thrombosis ( DC) Additional Instructions: follow up with in 1 week Referrals: Nawaf Shrestha MD [Staff Provider] - Kurtis Gonsalez MD [Family Provider] - Clinical Quality Measures - CQM - VTE Did patient receive overlap therapy during hosptialization?: No Is patient being discharged on overlap therapy?: No
[2017-07-28 12:21] VITALS: BP 114/78; PULSE 112; TEMP 98.1; O2SAT 97
== END 2017-07-28 15:00 | disposition home or self-care (01) | DRG 820 ==
LOC: H.ER 12:01 → H.ERHOLD 18:39 → H.TEL 21:17
PROVIDERS: ADMIT Student in an Organized Health Care Education/Training Program; ATTEND Student in an Organized Health Care Education/Training Program
DX: T82.868A Thrombosis due to vascular prosthetic devices, implants and grafts, initial encounter (principal); C78.7 Secondary malignant neoplasm of liver and intrahepatic bile duct; C79.31 Secondary malignant neoplasm of brain; I82.C11 Acute embolism and thrombosis of right internal jugular vein; I10 Essential (primary) hypertension; K29.70 Gastritis, unspecified, without bleeding; E78.00 Pure hypercholesterolemia, unspecified; Z90.12 Acquired absence of left breast and nipple; Z87.891 Personal history of nicotine dependence; C50.912 Malignant neoplasm of unspecified site of left female breast

== ENCOUNTER 2017-08-22 09:21 | Inpatient (IN) | payer SELFPAY ==
[2017-08-22 09:22] VITALS: BMI 36.6
[2017-08-22] MEDS ORDERED: Morphine 4 MG/ML VIAL ONE (09:34)
--- NOTE | 2017-08-22 09:45 | ED PDOC ---
Upper Extremity Pain/Injury Time Seen by Provider: 08/22/17 09:34 Chief Complaint (Nursing): Upper Extremity Problem/Injury Chief Complaint (Provider): fall R arm pain History Per: Family (daughter on phone) History/Exam Limitations: clinical condition, language barrier Onset/Duration Of Symptoms: Sudden Onset Current Symptoms Are (Timing): Still Present Severity: Severe Exacerbating Factor(s): Movement Additional Complaint(s): 51yo female arrives w her sister, history mostly obtained from daughter on phone who states shes under treatment for breast cancer w mets to bones and liver, on zometa, had a fall onto R arm and face this morning. C/o severe right arm pain, mild facial trauma. No LOC. Patient in significant discomfort, other history limited. Past Medical History Reviewed: Historical Data, Nursing Documentation, Vital Signs Vital Signs: Last Vital Signs Temp 98.8 F 08/22/17 09:41 Pulse 107 H 08/22/17 09:41 Resp 26 H 08/22/17 09:41 BP 118/86 08/22/17 09:41 Pulse Ox 100 08/22/17 09:41 - Medical History PMH: Anemia, Gastritis, HTN, Hypercholesterolemia, Pneumonia Denies: Alzheimer's Disease, Anxiety, Arthritis, Asthma, Atrial Fibrillation , Bipolar Disorder, Bronchitis, CAD, Cardia Arrhythmia, CHF, COPD, Crohn's Disease, Dementia, Depression, Diverticulitis, Emphysema, Fractures, Gall Bladder Disease, HIV, Hyperthyroidism, Hypothyroidism, Kidney Stones, Migraine, Mitral Valve Prolapse, Multiple Sclerosis, Osteoporosis, Pancreatitis, Paranoia , Parkinson's Disease, Peripheral Edema, Post Traumatic Stress Disorder, Pulmonary Embolism, Chronic Kidney Disease, Rheumatoid Arthritis, Schizophrenia , Seizures, Sickle Cell Disease, Sexually Transmitted Disease, Sleep Apnea, TIA - Surgical History Surgical History: Denies: Appendectomy, CABG, Carotid Endarterectomy, Cholecystectomy, Coronary Stent, Pacemaker, Tonsillectomy - Family History Family History: States: Unknown Family Hx - Living Arrangements Living Arrangements: With Family - Social History Current smoker - smoking cessation education provided: No - Home Medications Home Medications: Ambulatory Orders Medication Instructions Recorded Dexlansoprazole [Dexilant] 60 mg PO DAILY 06/24/16 Ezetimibe [Zetia] 10 mg PO DAILY 06/24/16 Metoprolol Succinate [Toprol XL] 25 mg PO DAILY 06/24/16 Calcium Carbonate/Vitamin D3 1 each PO BID 06/25/16 [Calcium 600 + Vit D Softgel] Acetaminophen with Codeine 1 tab PO Q6H PRN #10 tab 03/22/17 [Tylenol with Codeine No. 3 300 mg-30 mg] Letrozole [Femara] 2.5 mg PO DAILY 04/07/17 Metoclopramide HCl [Reglan] 5 mg PO TID PRN 05/04/17 Capecitabine [Capecitabine] 1 tab PO Q12 07/06/17 Meclizine [Meclizine*] 25 mg PO Q8 PRN #12 tab 07/09/17 Ondansetron ODT [Zofran ODT] 4 mg PO Q6 PRN #12 odt 07/09/17 Capecitabine [Capecitabine] 500 mg PO BID 07/26/17 Apixaban [Eliquis] 5 mg PO BID #74 tab 07/28/17 oxyCODONE/Acetaminophen [Percocet 1 ea PO Q6 PRN #20 tab 07/28/17 5/325 mg Tab] - Allergies Allergies/Adverse Reactions: Allergies Allergy/AdvReac Type Severity Reaction Status Date / Time No Known Allergies Allergy Verified 07/09/17 12:16 Review of Systems Constitutional: Negative for: Fever Cardiovascular: Negative for: Chest Pain Respiratory: Negative for: Shortness of Breath Gastrointestinal: Negative for: Abdominal Pain Musculoskeletal: Positive for: Shoulder Pain, Arm Pain Neurological: Negative for: Seizures Psych: Negative for: Suicidal ideation Physical Exam - Reviewed Nursing Documentation Reviewed: Yes Vital Signs Reviewed: Yes - Physical Exam Appears: Positive for: Uncomfortable (painful distress) Head Exam: Positive for: ATRAUMATIC, NORMAL INSPECTION, NORMOCEPHALIC Skin: Positive for: Normal Color, Warm, DRY Eye Exam: Positive for: EOMI, Normal appearance, PERRL ENT: Positive for: Other (contusion upper lip) Neck: Positive for: Normal, Painless ROM Cardiovascular/Chest: Positive for: Regular Rate, Rhythm Respiratory: Positive for: CNT, Normal Breath Sounds Gastrointestinal/Abdominal: Positive for: Normal Exam, Soft Back: Positive for: Normal Inspection Extremity: Positive for: Tenderness (R humerus), Swelling Neurologic/Psych: Positive for: Alert, Oriented. Negative for: Motor/Sensory Deficits, Aphasia - ECG O2 Sat by Pulse Oximetry: 100 Medical Decision Making Medical Decision Making: workup for traumatic fall w history of malignancy w metastasis on anticoagulation Per daughter on phone recent ?thrombosis in neck which is reason for AC. Disposition - Disposition Forms: [id number] ([place]enian)
[2017-08-22 10:00] LABS: BASO % 0.4 % (0.0-2.0); EOS # 0.2 K/uL (0.0-0.7); EOS % 1.9 % (0.0-4.0); HEMOGLOBIN 13.2 g/dL (12.0-16.0); LYMPH # 3.4 K/uL (1.0-4.3); LYMPH % 40.2 % (20.0-40.0); MEAN CORPUSCULAR HEMOGLOBIN 33.3 pg (27.0-31.0); MEAN CORPUSCULAR HGB CONC 34.7 g/dL (33.0-37.0); MEAN PLATELET VOLUME 8.5 fl (7.2-11.7); MONO # 0.8 K/uL (0.0-0.8); MONO % 9.3 % (0.0-10.0); NEUT # 4.1 K/uL (1.8-7.0); NEUT % 48.2 % (50.0-75.0); NRBC % 0.1 % (0.0-0.0); RBC 3.97 Mil/uL (3.80-5.20); WHITE BLOOD COUNT 8.5 K/uL (4.8-10.8)
[2017-08-22 10:13] LABS: ALB/GLOB RATIO 1.1 (1.0-2.1); ALBUMIN 4.1 g/dL (3.5-5.0); ALT/SGPT 15 U/L (9-52); AST/SGOT 34 U/L (14-36); BLOOD UREA NITROGEN 12 mg/dl (7-17); CALCIUM 9.6 mg/dL (8.4-10.2); GFR AFRICAN-AMERICAN > 60; GFR NON-AFRICAN AMERICAN > 60
[2017-08-22 10:16] LABS: INR 1.2 (0.9-1.2); PARTIAL THROMBOPLASTIN TIME 28.8 Seconds (25.6-37.1); PROTHROMBIN TIME 13.5 Seconds (9.8-13.1)
--- NOTE | 2017-08-22 10:29 | RAD ---
HISTORY: fall COMPARISON: No prior. FINDINGS: LUNGS: Right MediPort not significantly changed in position. Inspiratory volume appears diminished. Limited patchy atelectasis or infiltrate seen the right base with stable minimal inferior right pulmonary fibrosis. PLEURA: No significant pleural effusion identified, no pneumothorax apparent. CARDIOVASCULAR: Normal. OSSEOUS STRUCTURES: No significant abnormalities. VISUALIZED UPPER ABDOMEN: Normal. OTHER FINDINGS: Surgical carlos again seen left axilla status post left mastectomy. IMPRESSION: Trace patchy atelectasis or infiltrate right base with diminished inspiratory volume. Right MediPort reiterated.
--- NOTE | 2017-08-22 10:31 | RAD ---
PROCEDURE: Radiographs of the Right Forearm HISTORY: fall R arm pain hx breast cancer w mets COMPARISON: None available. TECHNIQUE: Frontal and lateral views obtained. FINDINGS: BONES: No fracture or destructive lesion. JOINT SPACES: Mild degenerative changes seen at the radiocarpal and elbow joints. OTHER FINDINGS: None. IMPRESSION: No acute fracture or dislocation identified right forearm.
--- NOTE | 2017-08-22 10:32 | RAD ---
PROCEDURE: Radiographs of the right elbow. HISTORY: fall R arm pain hx breast cancer w mets COMPARISON: No prior. FINDINGS: BONES: No acute fracture or destructive bony lesion identified. JOINTS: Limited degenerative articular cortical sclerosis seen at the joints of the right elbow diffusely. SOFT TISSUES: Normal. JOINT EFFUSION: None. OTHER FINDINGS: None. IMPRESSION: No acute fracture or dislocation identified. Limited degenerative changes as discussed above.
--- NOTE | 2017-08-22 10:43 | RAD ---
PROCEDURE: Radiographs of the right humerus. HISTORY: fall R arm pain hx breast cancer w mets COMPARISON: None. FINDINGS: BONES: There is an oblique, likely comminuted fracture through the proximal metaphysis. No definite dislocation. Mid and distal right humerus appear intact. There is proximal distraction of the major fracture fragment. SOFT TISSUES: Normal. OTHER FINDINGS: None. IMPRESSION: Oblique, likely comminuted fracture proximal right humerus with proximal distraction of the major fracture fragment.
--- NOTE | 2017-08-22 10:46 | RAD ---
PROCEDURE: Radiographs of the Right Shoulder HISTORY: fall R arm pain hx breast cancer w mets COMPARISON: No prior. FINDINGS: BONES: There is an oblique likely comminuted fracture of the proximal right humerus with proximal distraction of the major fracture fragment. No definite dislocation. Imaging is somewhat limited by limited ability of the patient to position. JOINTS: As above. SOFT TISSUES: Incidental note is made of right matter port at the upper right chest. Soft tissues local to the right humeral fracture site appear unremarkable grossly appear OTHER FINDINGS: None. IMPRESSION: Comminuted proximally distracted oblique fracture proximal right humerus. No dislocation grossly evident.
--- NOTE | 2017-08-22 10:52 | CT ---
PROCEDURE: CT HEAD WITHOUT CONTRAST. HISTORY: fall on eliquis hx breast cancer w mets COMPARISON: Noncontrast head CT 07/09/2017. TECHNIQUE: Axial computed tomography images were obtained through the head/brain without intravenous contrast. Radiation dose: Total exam DLP = 738.58 mGy-cm. This CT exam was performed using one or more of the following dose reduction techniques: Automated exposure control, adjustment of the mA and/or kV according to patient size, and/or use of iterative reconstruction technique. FINDINGS: HEMORRHAGE: No intracranial hemorrhage. BRAIN: Corticomedullary differentiation remains good throughout the cerebrum with the exception of chronic limited encephalomalacia at the left occipital lobe. A tiny chronic lacune or dilated perivascular space is seen at the left external capsule as well. There is no mass effect or suspicious extra-axial fluid collection. Posterior fossa contents are stable and unremarkable the brainstem. VENTRICLES: Unremarkable. No hydrocephalus. CALVARIUM: No destructive bony lesion or displaced fracture identified including through the skullbase. PARANASAL SINUSES: Unremarkable as visualized. No significant inflammatory changes. MASTOID AIR CELLS: Unremarkable as visualized. No inflammatory changes. OTHER FINDINGS: None. IMPRESSION: Stable nonacute unenhanced head CT. No intracranial hemorrhage or mass is identified and there is no interval cortical edema identified. Encephalomalacia is stable at the left occipital lobe posteriorly with a chronic lacune or dilated perivascular is again noted at the left external capsule. No fracture appreciable.
--- NOTE | 2017-08-22 10:59 | CT ---
PROCEDURE: CT Cervical Spine without contrast HISTORY: fall hx breast cancer w mets COMPARISON: None available. TECHNIQUE: Axial computed tomography images were obtained of the cervical spine without the use of intravenous contrast. Coronal and sagittal reformatted images were created and reviewed. Radiation dose: Total exam DLP = 746.45 mGy-cm. This CT exam was performed using one or more of the following dose reduction techniques: Automated exposure control, adjustment of the mA and/or kV according to patient size, and/or use of iterative reconstruction technique. FINDINGS: VERTEBRAE: There is a minimal anterolisthesis of C7 anterior did T1 on a degenerative basis. No fractures identified throughout the cervical spine. Multilevel spondylosis appears mild severity but is diffuse. C1-2 articulation is degenerated with the odontoid process is intact nevertheless. Craniocervical junction appears intact. No destructive bony lesion appreciable. Prevertebral paraspinal soft tissues appear diffusely unremarkable Right MediPort incidentally inserted terminating at the junction of the right subclavian vein with the innominate vein. Trace fibrotic changes seen the bilateral pulmonary apices with limited right apical emphysema noted. DISCS/SPINAL CANAL/NEURAL FORAMINA: No bony central canal stenosis throughout the cervical spine. Moderate left C4 and mild left C5 degenerative foraminal stenoses are identified on the basis of osteophyte development. Mild bilateral degenerative C6 neural foraminal stenoses are identified, borderline at right C7 foramen. PARASPINAL SOFT TISSUES: As above. OTHER FINDINGS: None. IMPRESSION: Minimal grade 1 spondylolisthesis C7-T1 on a degenerative basis. No acute fracture or destructive bony lesion throughout the cervical spine. Limited degenerative neural foraminal stenoses at the mid to inferior cervical spine with a moderate left C4 degenerative foraminal stenosis. No significant bony central canal stenosis.
--- NOTE | 2017-08-22 12:18 | CT ---
PROCEDURE: CT MAXILLOFACIAL BONES WITHOUT CONTRAST HISTORY: facial trauma COMPARISON: None TECHNIQUE: Contiguous axial CT images of the maxillofacial bones were obtained. Coronal and sagittal reformats were generated. Radiation dose: Total exam DLP = 654.34 mGy-cm. This CT exam was performed using one or more of the following dose reduction techniques: Automated exposure control, adjustment of the mA and/or kV according to patient size, and/or use of iterative reconstruction technique. FINDINGS: NASAL BONES: No fracture identified. ORBITS: No fracture identified. PARANASAL SINUSES/ MASTOIDS: Extensive right mastoid effusions. Left and sphenoid air cells appear normal. MAXILLA: No fracture identified. MANDIBLE/ TEMPOROMANDIBULAR JOINTS: No fracture or subluxation identified. SKULL BASE: No fracture identified as imaged. TEMPORAL BONES: Intact without fracture identified. OTHER FINDINGS: None. IMPRESSION: No facial bone fracture appreciated or destructive bony lesion evident. Incidental extensive right mastoid effusions identified.
[2017-08-22] MEDS ORDERED: HYDROmorphone 0.5 mg/0.5 ml ISec IM PRN (12:49)
[2017-08-22] MEDS: HYDROmorphone 0.5 mg/0.5 ml ISec IVP PRN ×2 (13:55→22:03)
--- NOTE | 2017-08-22 14:16 | CT ---
PROCEDURE: RIGHT SHOULDER CT WITHOUT CONTRAST HISTORY: R prox humeral fracture, hx metastatic disease COMPARISON: Right shoulder radiographs 08/22/2017. TECHNIQUE: A volumetric CT acquisition through the right shoulder was performed without intravenous contrast as requested. Reformatted datasets provided in sagittal, axial and coronal planes including volume rendered series. Contrast Dose: None Radiation dose:Total exam DLP = 338.76 mGy-cm. This CT exam was performed using one or more of the following dose reduction techniques: Automated exposure control, adjustment of the mA and/or kV according to patient size, and/or use of iterative reconstruction technique. FINDINGS: A comminuted fracture of the proximal right humerus is appreciated with the largest 2 fracture fragments originating from the head of the humerus. The more lateral component is minimally distracted proximally with the more medial component of the humeral head impacted into the proximal metaphysis. The acromion, clavicle and visualized scapula appear intact without acute fracture. The most inferior portion of the scapula is not included in this exam. The proximal humeral fracture does not appear to be a pathological fracture is no destructive bony lesion is seen associated. Local soft tissue edema appears moderate. Visit right apex is remarkable only for trace emphysema with dependent atelectasis seen at the mid right lung. Incidental capture through the right ribs appears unremarkable with no definite fracture through the upper right ribs. Note is made of MediPort deployment via right internal jugular access. IMPRESSION: Comminuted proximal right humeral fracture into 2 major parts of the head with 2 3 tiny fragments associated. No subluxation or dislocation or additional fracture identified as discussed above. The more medial of the 2 humeral head fracture fragments is impacted into the proximal metaphysis.
--- NOTE | 2017-08-22 14:33 | CARD ---
APPROVED REPORT EKG Measurement Heart [id number] <Conclusion> Normal sinus rhythm Normal ECG
[2017-08-22] MEDS: Dextrose 5%/Lactated Ringer's 1,000 ML IV SCH (16:00)
[2017-08-23] MEDS: Dextrose 5%/Lactated Ringer's 1,000 ML IV SCH (01:28)
[2017-08-23] MEDS: HYDROmorphone 0.5 mg/0.5 ml ISec IVP PRN ×4 (02:03→14:33)
--- NOTE | 2017-08-23 05:32 | CON ---
DATE: 08/22/2017 CHIEF COMPLAINT: Right proximal humerus fracture. HISTORY OF PRESENT ILLNESS: The patient is a 51-year-old female, right-hand dominant, who had a mechanical fall landing onto the right shoulder. The patient had immediate pain after the fall on the right shoulder. She presented herself in the emergency room where the x-rays and CT scan showing a displaced comminuted right proximal humerus fracture. The patient has a history of stage IV breast cancer with metastasis to the ribs. No metastatic lesion to the proximal humerus. The patient denies pain in any other extremity or joint. Denies paresthesias or motor weakness. PHYSICAL EXAMINATION: VITAL SIGNS: The patient is afebrile and the vitals signs are stable. EXTREMITIES: Examination of the patient's right shoulder, there is ____ minimal ecchymosis and diffuse tenderness to palpation. Limited range of motion secondary to pain. Median, ulnar, and radial nerve intact distally. 2+ radial pulse. IMAGING: X-rays and CT scan of the patient's right shoulder showing a comminuted proximal humerus fracture that appears to be two parts. No metastatic lesions are noted. ASSESSMENT: A 51-year-old female with right proximal humerus displaced fracture. TREATMENT: I had a detailed discussion with the patient and her family explaining the complex nature of her injury. I presented the patient with both options of operative versus nonoperative management. After careful consideration and considering the patient's significant medical comorbidities at this time, the family elected to proceed with nonoperative management. I explained the risk of nonoperative management which would include stiffness, nonunion, malunion, need to further surgery down the road. They agreed with the plan. The patient will remain nonweightbearing. She is stable for discharge and follow up in my office as outpatient. Duane Carrion MD
--- NOTE | 2017-08-23 08:40 | CP.PCM.HP ---
History of Present Illness - History of Present Illness History of Present Illness: This is a 51 y/o female with hx of metastatic breast disease admitted for right humeral fracture after a fall at home. Claims that she tripped at home and denies any dizziness prior to fall. Medical hx. Currently on tx for breast cancer. Has a hx of gastritis and HTN. Hx of DVT and currently on eliquis. Present on Admission - Present on Admission Any Indicators Present on Admission: No History of DVT/PE: No History of Uncontrolled Diabetes: No Urinary Catheter: No Decubitus Ulcer Present: No Review of Systems - Neurological Neurological: Paresthesias, Radicular Pain Past Patient History - Infectious Disease Hx of Infectious Diseases: None - Past Medical History & Family History Past Medical History?: Yes - Past Social History Smoking Status: Former Smoker - CARDIAC Hx Cardiac Disorders: Yes - PULMONARY Hx Asthma: No Hx Bronchitis: No Hx Chronic Obstructive Pulmonary Disease (COPD): No Hx Emphysema: No Hx Pneumonia: Yes Hx Pulmonary Embolism: No Hx Sleep Apnea: No - NEUROLOGICAL Hx Alzheimer's Disease: No Hx Dementia: No Hx Migraine: No Hx Multiple Sclerosis: No Hx Parkinson's Disease: No Hx Seizures: No Hx Transient Ischemic Attacks (TIA): No - HEENT Hx HEENT Problems: No - RENAL Hx Chronic Kidney Disease: No - ENDOCRINE/METABOLIC Hx Hyperthyroidism: No Hx Hypothyroidism: No - HEMATOLOGICAL/ONCOLOGICAL Hx Anemia: Yes Hx Cancer: Yes (brain metastasis) Hx Human Immunodeficiency Virus (HIV): No Hx Sickle Cell Disease: No - INTEGUMENTARY Hx Dermatological Problems: No - MUSCULOSKELETAL/RHEUMATOLOGICAL Hx Arthritis: No Hx Falls: Yes Hx Fractures: No Hx Osteoporosis: No Hx Rheumatoid Arthritis: No - GASTROINTESTINAL Hx Crohn's Disease: No Hx Diverticulitis: No Hx Gall Bladder Disease: No Hx Gastritis: Yes Hx Pancreatitis: No - GENITOURINARY/GYNECOLOGICAL Hx Sexually Transmitted Disorders: No - PSYCHIATRIC Hx Anxiety: No Hx Bipolar Disorder: No Hx Depression: No Hx Post Traumatic Stress Disorder: No Hx Schizophrenia: No Hx Substance Use: No - SURGICAL HISTORY Hx Appendectomy: No Hx Carotid Endarterectomy: No Hx Cholecystectomy: No Hx Coronary Artery Bypass Graft: No Hx Coronary Stent: No Hx Tonsillectomy: No - ANESTHESIA Hx Anesthesia: Yes Hx Anesthesia Reactions: No Hx Malignant Hyperthermia: No Meds Allergies/Adverse Reactions: Allergies Allergy/AdvReac Type Severity Reaction Status Date / Time No Known Allergies Allergy Verified 07/09/17 12:16 Physical Exam - Head Exam Head Exam: NORMAL INSPECTION - Eye Exam Eye Exam: Normal appearance - ENT Exam ENT Exam: Mucous Membranes Moist - Respiratory Exam Respiratory Exam: Clear to Auscultation Bilateral - Cardiovascular Exam Cardiovascular Exam: REGULAR RHYTHM - GI/Abdominal Exam GI & Abdominal Exam: Normal Bowel Sounds - Extremities Exam Additional comments: right upper arm on a cast. - Neurological Exam Neurological exam: CN II-XII Intact, Oriented x3 - Psychiatric Exam Psychiatric exam: Normal Mood Results - Vital Signs Recent Vital Signs: Last Vital Signs Temp 98.5 F 08/23/17 08:13 Pulse 108 H 08/23/17 08:13 Resp 20 08/23/17 08:13 BP 126/82 08/23/17 08:13 Pulse Ox 96 08/23/17 08:13 - Labs Result Diagrams: 08/22/17 09:50 08/22/17 09:50 Labs: Laboratory Results - last 24 hr 08/22/17 08/22/17 08/22/17 09:50 09:50 09:50 WBC 8.5 RBC 3.97 Hgb 13.2 Hct 38.1 MCV 96.0 MCH 33.3 H MCHC 34.7 RDW 18.0 H Plt Count 272 D MPV 8.5 Neut % (Auto) 48.2 L Lymph % (Auto) 40.2 H [place] % (Auto) 9.3 Eos % (Auto) 1.9 Baso % (Auto) 0.4 Neut # (Auto) 4.1 Lymph # (Auto) 3.4 [place] # (Auto) 0.8 Eos # (Auto) 0.2 Baso # (Auto) 0.0 PT 13.5 H INR 1.2 APTT 28.8 Sodium 141 Potassium 3.8 Chloride 104 Carbon Dioxide 23 Anion Gap 18 BUN 12 Creatinine 0.8 Est GFR ( Amer) > 60 Est GFR (Non-Af Amer) > 60 Random Glucose 139 H Calcium 9.6 Total Bilirubin 0.5 AST 34 ALT 15 Alkaline Phosphatase 50 Total Protein 7.7 Albumin 4.1 Globulin 3.6 Albumin/Globulin Ratio 1.1 Assessment & Plan (1) Fracture, humerus closed Status: Acute (2) Metastatic breast cancer Status: Acute (3) HTN (hypertension) Status: Chronic (4) Hyperlipidemia Status: Chronic - Assessment and Plan (Free Text) Plan: cont meds cONT TX pAIN MEDS ortho eval
[2017-08-23] MEDS: HYDROmorphone 1 mg/ml ISec IVP PRN ×2 (18:34→21:49)
[2017-08-24] MEDS: HYDROmorphone 1 mg/ml ISec IVP PRN ×2 (02:31→06:49)
[2017-08-24 07:50] VITALS: BP 131/83; PULSE 107; RESP 19; TEMP 98.7; O2SAT 98
--- NOTE | 2017-08-24 09:55 | CP.PCM.PN ---
Subjective - Date & Time of Evaluation Date of Evaluation: 08/23/17 Time of Evaluation: 13:00 - Subjective Subjective: Patient has been doing well has no vomiting requires morphine for pain Objective - Vital Signs/Intake and Output Vital Signs (last 24 hours): Temp Pulse Resp BP Pulse Ox 98.7 F 107 H 19 131/83 98 08/24/17 07:49 08/24/17 07:49 08/24/17 07:49 08/24/17 07:49 08/24/17 07:49 - Medications Medications: Current Medications Apixaban (Eliquis) 5 mg PO BID [facility] PRN Reason: Protocol Last Admin: 08/24/17 09:21 Dose: 5 mg Home Med (Patient's Own Medication) 1 unit PO DAILY [facility] Last Admin: 08/24/17 09:21 Dose: 1 unit Home Med (Patient's Own Medication) 1 unit PO Q12 [facility] Last Admin: 08/24/17 09:21 Dose: 1 unit Hydromorphone HCl (Dilaudid) 1 mg IVP Q4 PRN PRN Reason: Pain, severe (8-10) Last Admin: 08/24/17 06:49 Dose: 1 mg Metoclopramide HCl (Reglan) 10 mg IVP Q6 PRN PRN Reason: Nausea/Vomiting Last Admin: 08/22/17 16:10 Dose: 10 mg Morphine Sulfate (Morphine) 2 mg IVP Q4 PRN PRN Reason: Pain, moderate (4-7) Last Admin: 08/22/17 18:36 Dose: 2 mg Pantoprazole Sodium (Protonix Inj) 40 mg IVP DAILY [facility] Last Admin: 08/24/17 09:22 Dose: 40 mg - Labs Labs: 08/22/17 09:50 08/22/17 09:50 PT 13.5 Seconds (9.8-13.1) H 08/22/17 09:50 INR 1.2 (0.9-1.2) 08/22/17 09:50 APTT 28.8 Seconds (25.6-37.1) 08/22/17 09:50 - Head Exam Head Exam: NORMAL INSPECTION - Eye Exam Eye Exam: Normal appearance - ENT Exam ENT Exam: Mucous Membranes Moist - Respiratory Exam Respiratory Exam: Clear to Ausculation Bilateral - Cardiovascular Exam Cardiovascular Exam: REGULAR RHYTHM - GI/Abdominal Exam GI & Abdominal Exam: Normal Bowel Sounds Assessment and Plan (1) Fracture, humerus closed Status: Acute (2) Metastatic breast cancer Status: Acute (3) HTN (hypertension) Status: Chronic (4) Hyperlipidemia Status: Chronic - Assessment and Plan (Free Text) Plan: Cont meds Cont tx Cont PT pain meds follow up with Dr Funez.
--- NOTE | 2017-08-24 09:58 | CP.PCM.DIS ---
Provider - Provider Date of Admission: 08/22/17 11:49 Attending physician: Kurtis Gonsalez MD Time Spent in preparation of Discharge (in minutes): 30 Diagnosis - Discharge Diagnosis (1) Fracture, humerus closed Status: Acute (2) Metastatic breast cancer Status: Acute (3) HTN (hypertension) Status: Chronic (4) Hyperlipidemia Status: Chronic Hospital Course - Lab Results Lab Results: Most Recent Lab Values WBC 8.5 K/uL (4.8-10.8) 08/22/17 09:50 RBC 3.97 Mil/uL (3.80-5.20) 08/22/17 09:50 Hgb 13.2 g/dL (12.0-16.0) 08/22/17 09:50 Hct 38.1 % (34.0-47.0) 08/22/17 09:50 MCV 96.0 fl (81.0-99.0) 08/22/17 09:50 MCH 33.3 pg (27.0-31.0) H 08/22/17 09:50 MCHC 34.7 g/dL (33.0-37.0) 08/22/17 09:50 RDW 18.0 % (11.5-14.5) H 08/22/17 09:50 Plt Count 272 K/uL (130-400) D 08/22/17 09:50 MPV 8.5 fl (7.2-11.7) 08/22/17 09:50 Neut % (Auto) 48.2 % (50.0-75.0) L 08/22/17 09:50 Lymph % (Auto) 40.2 % (20.0-40.0) H 08/22/17 09:50 [place] % (Auto) 9.3 % (0.0-10.0) 08/22/17 09:50 Eos % (Auto) 1.9 % (0.0-4.0) 08/22/17 09:50 Baso % (Auto) 0.4 % (0.0-2.0) 08/22/17 09:50 Neut # (Auto) 4.1 K/uL (1.8-7.0) 08/22/17 09:50 Lymph # (Auto) 3.4 K/uL (1.0-4.3) 08/22/17 09:50 [place] # (Auto) 0.8 K/uL (0.0-0.8) 08/22/17 09:50 Eos # (Auto) 0.2 K/uL (0.0-0.7) 08/22/17 09:50 Baso # (Auto) 0.0 K/uL (0.0-0.2) 08/22/17 09:50 PT 13.5 Seconds (9.8-13.1) H 08/22/17 09:50 INR 1.2 (0.9-1.2) 08/22/17 09:50 APTT 28.8 Seconds (25.6-37.1) 08/22/17 09:50 Sodium 141 mmol/l (132-148) 08/22/17 09:50 Potassium 3.8 MMOL/L (3.6-5.0) 08/22/17 09:50 Chloride 104 mmol/L (98-107) 08/22/17 09:50 Carbon Dioxide 23 mmol/L (22-30) 08/22/17 09:50 Anion Gap 18 (10-20) 08/22/17 09:50 BUN 12 mg/dl (7-17) 08/22/17 09:50 Creatinine 0.8 mg/dl (0.7-1.2) 08/22/17 09:50 Est GFR ( Amer) > 60 08/22/17 09:50 Est GFR (Non-Af Amer) > 60 08/22/17 09:50 Random Glucose 139 mg/dL (65-105) H 08/22/17 09:50 Calcium 9.6 mg/dL (8.4-10.2) 08/22/17 09:50 Total Bilirubin 0.5 mg/dl (0.2-1.3) 08/22/17 09:50 AST 34 U/L (14-36) 08/22/17 09:50 ALT 15 U/L (9-52) 08/22/17 09:50 Alkaline Phosphatase 50 U/L (38-126) 08/22/17 09:50 Total Protein 7.7 G/DL (6.3-8.2) 08/22/17 09:50 Albumin 4.1 g/dL (3.5-5.0) 08/22/17 09:50 Globulin 3.6 gm/dL (2.2-3.9) 08/22/17 09:50 Albumin/Globulin Ratio 1.1 (1.0-2.1) 08/22/17 09:50 - Hospital Course Hospital Course: This is a 51 y/o female admitted for acute closed fracture of proximal humerus sustained after fracture. Has a hx of metastatic breast cancer to bone and brain She was on chemotx. Discharge Exam - Head Exam Head Exam: NORMAL INSPECTION - Eye Exam Eye Exam: Normal appearance - Respiratory Exam Respiratory Exam: NORMAL BREATHING PATTERN - Cardiovascular Exam Cardiovascular Exam: REGULAR RHYTHM - GI/Abdominal Exam GI & Abdominal Exam: Normal Bowel Sounds - Neurological Exam Neurological exam: CN II-XII Intact, Oriented x3 Discharge Plan - Follow Up Plan Condition: FAIR Disposition: HOME/ ROUTINE Additional Instructions: Cont meds Cont tx Cont PT pain meds. Rx given discussed with DR Funez and will approach conservatively hence no surgery for now.
[2017-08-24] MEDS ORDERED: Oxycodone/Acetaminophen 5/325 mg Tab PO PRN ×2 (11:53)
== END 2017-08-24 16:00 | disposition home or self-care (01) | DRG 253 ==
LOC: H.ER 09:21 → INTOOBSV 11:49 → UNDOADMOB 11:49 → H.ERHOLD 11:49 → OBSVTOIN 11:49 → H.ERHOLD 13:35 → H.MEDSURG1 13:35 → OBSVTOIN 08-23 17:36
PROVIDERS: ADMIT Family Medicine; ATTEND Family Medicine
DX: S42.201A Unspecified fracture of upper end of right humerus, initial encounter for closed fracture (principal); C79.31 Secondary malignant neoplasm of brain; C79.51 Secondary malignant neoplasm of bone; Z85.3 Personal history of malignant neoplasm of breast; E78.00 Pure hypercholesterolemia, unspecified; E78.5 Hyperlipidemia, unspecified; I10 Essential (primary) hypertension; Z79.01 Long term (current) use of anticoagulants; Z86.718 Personal history of other venous thrombosis and embolism; Z87.01 Personal history of pneumonia (recurrent); Z87.891 Personal history of nicotine dependence; D64.9 Anemia, unspecified; K29.70 Gastritis, unspecified, without bleeding; W01.0XXA Fall on same level from slipping, tripping and stumbling without subsequent striking against object, initial encounter; Y92.009 Unspecified place in unspecified non-institutional (private) residence as the place of occurrence of the external cause; Z92.21 Personal history of antineoplastic chemotherapy

== ENCOUNTER 2018-02-02 07:32 | Inpatient (IN) | payer SELFPAY ==
[2018-01-29 09:32] VITALS: BMI 35.4
[2018-02-02 11:09] LABS: HEMOGLOBIN 12.7 g/dL (12.0-16.0); MEAN CELL VOLUME 104.3 fl (81.0-99.0); MEAN CORPUSCULAR HEMOGLOBIN 34.8 pg (27.0-31.0); MEAN CORPUSCULAR HGB CONC 33.4 g/dL (33.0-37.0); RBC 3.65 Mil/uL (3.80-5.20); RED CELL DISTRIBUTION WIDTH 13.5 % (11.5-14.5); WHITE BLOOD COUNT 6.6 K/uL (4.8-10.8)
[2018-02-02 11:26] LABS: BLOOD UREA NITROGEN 13 mg/dl (7-17); CALCIUM 9.4 mg/dL (8.4-10.2); GFR NON-AFRICAN AMERICAN > 60
[2018-02-02] MEDS ORDERED: EPINEPHrine 1 mg/ml (1:1000) Inj ONE (13:15)
[2018-02-02] MEDS ORDERED: Lidocaine 1% w Epi 1:100,000 Inj ONE (13:15)
[2018-02-02] MEDS ORDERED: ceFAZolin IV 1 gm in Dextrose 2 GM/100 ML BAG IVPB ONE (13:16)
[2018-02-02] MEDS ORDERED: Bupivacaine 0.5% Inj(30mL) ONE (13:16)
[2018-02-02] MEDS ORDERED: Sodium Chloride 0.9% 1,000 ML IV ONE (15:16)
[2018-02-02] MEDS ORDERED: Lactated Ringer's 1,000 ML IV ONE (15:18)
--- NOTE | 2018-02-02 16:32 | PCM.ANESB1 ---
Interscalene Block - Brachial Plexus Date of Procedure: 02/02/18 Anesthesiologist: Tutu Clark Pre-Procedure Diagnosis: R shoulder fracture Post-Procedure Diagnosis: R shoulder fracture Procedure Performed: Interscalene Block of Brachial Plexus Right - Procedure Interscalene Block of Brachial Plexus: This procedure was explained to the patient that it is for post-operative pain management. Consent was obtained after a thorough discussion with the patient regarding the benefits and possible complications of local anesthetic block of the Brachial Plexus at the Interscalene area. The patient was brought to the Operating Room and standard monitors were applied. Time out was held with the circulating nurse to confirm the correct surgery and appropriate block. After applying Oxygen by nasal cannula and administering IV Sedation, the patient's head was gently rotated away from the RIGHT operative shoulder and the anterior scalene groove was carefully palpated. The ultrasound transducer was then applied to the skin in the transverse plane and the brachial plexus was visualized lateral to the carotid artery and in between the anterior and middle scalene muscles. After identification,the anterior lateral portion of the neck was prepped with Chloroprep and Lidocaine 1% was injected subcutaneously for topical analgesia. At this point, a # 22 gauge Stimuplex 2 inches insulated needle was inserted into the interscalene groove and directed in a caudal and midline direction. The needle was inserted lateral to the ultrasound transducer in-plane towards the brachial plexus in a [id number] direction. Needle advancement was performed carefully under direct ultrasound visualization. Nerve stimulator was used and twitched of the affected extremity including the hand brachialis muscles, biceps and the deltoid was obtained at a current of 0.3MA. After repeated negative aspiration, 30cc of 0.25% bupivacaine with [id number] epinephrine was injected in 5cc aliquots. Under ultrasound guidance the local anesthetics were observed surrounding the roots of the brachial plexus. The needle was removed intact and sterile dressing was applied. The patient had stable vital signs, was conscious and in no apparent distress. The patient tolerated the interscalene block of the bracheal plexus well with stable vital signs and was prepared for subsequent surgery.
[2018-02-02] MEDS ORDERED: Dexamethasone 4 mg/1 ml IVP PRN (17:18)
[2018-02-02] MEDS ORDERED: HYDROmorphone 0.5 mg/0.5 ml ISec IVP PRN (17:18)
[2018-02-02] MEDS ORDERED: Oxycodone/Acetaminophen 5/325 mg Tab PO PRN ×2 (17:32)
[2018-02-02] MEDS ORDERED: Lactated Ringer's 1,000 ML IV SCH (17:45)
--- NOTE | 2018-02-02 17:59 | PCM.SURG1 ---
Surgeon's Initial Post Op Note - Surgeon's Notes Surgeon: Duane Carrion MD Statistical Consultant: Enrike Cantu MD; Milana Patterson PA-C; Juventino Álvarez PA-C Type of Anesthesia: General Endo Pre-Operative Diagnosis: right shoulder proximal humerus fx Operative Findings: see op report Post-Operative Diagnosis: same as pre-op dx Operation Performed: Right reverse total shoulder replacement Specimen/Specimens Removed: right shoulder humeral head Estimated Blood Loss: EBL {In ML}: 200 Date of Surgery/Procedure: 02/02/18 Time of Surgery/Procedure: 14:30
--- NOTE | 2018-02-02 18:33 | RAD ---
Date of service: 02/02/2018 PROCEDURE: Radiographs of the Right Shoulder HISTORY: s/p R reverse TSR COMPARISON: 09/29/2017 FINDINGS: BONES: There is diffuse bone demineralization. No acute displaced fracture or bone destruction. Bone alignment is normal. JOINTS: Status post total shoulder arthroplasty. SOFT TISSUES: There are postoperative changes in the periarticular soft tissues and skin carlos. OTHER FINDINGS: None. IMPRESSION: Status post total shoulder arthroplasty, no acute findings.
[2018-02-02] MEDS: oxyCODONE 10 mg ER Tab (oxyCONTIN) PO SCH (22:16)
[2018-02-02] MEDS: CAPECITABINE 500 MG PO SCH (22:18)
[2018-02-03] MEDS: ceFAZolin 2 GM in Sodium Chloride 0.9% 100 ML IVPB SCH ×2 (00:58→08:50)
[2018-02-03 01:36] VITALS: RESP 20
--- NOTE | 2018-02-03 02:43 | OP ---
PROCEDURE DATE: 02/02/2018 ATTENDING PHYSICIAN: Duane Carrion MD PRESTIDIGITATOR: Milana Marte PA-C PREOPERATIVE DIAGNOSIS: Right shoulder fracture, nonunion of the proximal humerus. POSTOPERATIVE DIAGNOSIS: Right shoulder fracture, nonunion of the proximal humerus. PROCEDURES: 1. Right reverse total shoulder replacement. 2. Biceps tenotomy and tenodesis. IMPLANT: Pollock reverse total shoulder with 36-mm eccentric glenosphere with a small base plate, size of 14 and diaphyseal fitting stem and 15 mm offset under FF. ESTIMATED BLOOD LOSS: 200 mL. TYPE OF ANESTHESIA: General. COMPLICATIONS: None. HISTORY: The patient is a 52-year-old female, right-hand dominant, who had a right proximal humerus fracture. The patient had malunion and nonunion of the proximal humerus fracture. She has failed extensive conservative management where indicated right shoulder arthroplasty. I reviewed the risks and benefits of the surgery with the patient in detail. The risks included, but not limited to bleeding, infection, nerve vessel damage, continued pain, stiffness, instability, dislocation, blood clots, fractures, nerve vessel damage, blood clots among others. The patient fully understood the risks and benefits and alternatives and opted to proceed. DESCRIPTION OF PROCEDURE: On the day of the surgery, the patient was admitted to the preoperative holding area. A laterality sheet was completed, confirming the patient's right shoulder could be the correct operative site. An informed consent was signed from the patient, the right shoulder was marked. The patient was taken to the operating room. She underwent general anesthesia. She was given appropriate prophylactic antibiotics. She was placed in a beach chair position with the head of bed to 50 degrees. The right shoulder wad draped and prepped in a standard manner. First, the time-out was completed, confirming the patient's right shoulder to be the correct operative site. We proceeded with a standard deltopectoral approach. A 10-cm incision was made over the deltopectoral interval. Skin dissection was taken down, and the cephalic vein was identified and retracted laterally. The interval between pectoralis major and deltoid was then identified, retractors were placed, and the fracture was exposed. There was a nonunion and also extensive soft tissue callus. The fracture was also distracted, and osteotomy was performed to separate the greater and lesser tuberosities. Next, the proposed humeral head cut was made, and the femoral cannel was repaired. It was noted that a size-14 stem would be adequate for this patient. Next, we proceeded with a preparation of the glenoid, possible retractors were used to expose the glenoid. All the soft tissue was removed and using a Selvin reamer, all the cartilage remnants were also decorticated. A central drill hole was made, and a metal baseplate was impacted with two additional screws for fixation. Afterwards, a 36-mm eccentric glenosphere was securely fixed. The fixation was checked and was found to be secured. Next, the attention was given back to humeral head. The humeral head and body was assembled. Multiple trials were used to check stability. It was noted that a 15-mm trial polyethylene would be adequate for this patient, which was assembled. The shoulder was relocated, taken through a range of motion, was found to be stable throughout the entire range of motion. Next, using pulse lavage and antiseptic solution, the wound was copiously irrigated. It was closed in standard manner. Sterile dressing was applied. There were no complications of the surgery. Milana Marte, the certified physician office assistant, who was present for the entirety of the case as her participation was crucial in patient positioning, retraction of critical neurovascular structures, and successful completion of the surgery. Duane Carrion MD
[2018-02-03] MEDS: Morphine 4 MG/ML VIAL IVP PRN ×2 (03:32→10:07)
[2018-02-03 05:08] VITALS: O2SAT 95
--- NOTE | 2018-02-03 07:58 | CP.PCM.PN ---
Subjective - Date & Time of Evaluation Date of Evaluation: 02/03/18 Time of Evaluation: 07:56 - Subjective Subjective: Patient with family at bedside. She says she has pain in her shoulder, but not too bad. Denies numbness/tingling. Denies CP/SOB/dizziness. Objective - Vital Signs/Intake and Output Vital Signs (last 24 hours): Temp Pulse Resp BP Pulse Ox 98 F 101 H 20 111/68 95 02/03/18 04:00 02/03/18 04:00 02/03/18 04:00 02/03/18 04:00 02/03/18 04:00 Intake and Output: 02/03/18 02/03/18 06:59 18:59 Intake Total 600 Output Total 350 Balance 250 - Medications Medications: Current Medications Acetaminophen (Tylenol 325mg Tab) 650 mg PO Q4 PRN PRN Reason: Fever 101 degrees fahrenheit Atorvastatin Calcium (Lipitor) 20 mg PO DAILY [facility] Docusate Sodium (Colace) 100 mg PO BID [facility] Home Med (Capecitabine [Capecitabine]) 500 mg PO BID [facility] Last Admin: 02/02/18 22:18 Dose: 500 mg Home Med (Letrozole [Femara]) 2.5 mg PO DAILY [facility] Cefazolin Sodium 2 gm/ Sodium (Chloride) 100 mls @ 100 mls/hr IVPB Q8 [facility]; Protocol Stop: 02/03/18 09:59 Last Admin: 02/03/18 00:58 Dose: 100 mls/hr Lactated Ringer's (Lactated Ringer's) 1,000 mls @ 100 mls/hr IV .Q10H [facility] Last Admin: 02/03/18 03:34 Dose: 100 mls/hr Metoprolol Succinate (Toprol Xl) 25 mg PO DAILY [facility] Morphine Sulfate (Morphine) 2 mg IVP Q4 PRN PRN Reason: Pain, severe (8-10) Last Admin: 02/03/18 03:32 Dose: 2 mg Ondansetron HCl (Zofran Inj) 4 mg IVP Q6 PRN PRN Reason: Nausea/Vomiting Last Admin: 02/02/18 22:15 Dose: 4 mg Oxycodone HCl (Oxycontin Extended Release Tab) 10 mg PO Q12 [facility] Stop: 02/05/18 21:01 Last Admin: 02/02/18 22:16 Dose: 10 mg Oxycodone/Acetaminophen (Percocet 5/325 Mg Tab) 1 tab PO Q4 PRN PRN Reason: Pain, Mild (1-3) Stop: 02/05/18 17:33 Oxycodone/Acetaminophen (Percocet 5/325 Mg Tab) 2 tab PO Q4 PRN PRN Reason: Pain, moderate (4-7) Stop: 02/05/18 17:33 Pantoprazole Sodium (Protonix Ec Tab) 40 mg PO DAILY [facility] - Labs Labs: 02/02/18 10:58 02/02/18 10:58 - Extremities Exam Additional comments: Right shoulder: dressing intact, mild swelling as expected. No erythema. +ROM fingers/thumb/wrist flex/ext/add/abd, sensation intact med/rad/ulnar nerve distrib, +radial pulse Assessment and Plan (1) Closed fracture of right proximal humerus Assessment & Plan: POD#1 s/p right reverse TSA -PT/OT -ice -pain medication -shoulder immob/NWB -f/u labs -plan for d/c home when pain controlled and tolerating PO -d/w Dr. Carrion, agrees with above Status: Acute
[2018-02-03 08:21] VITALS: TEMP 98
[2018-02-03] MEDS: CAPECITABINE 500 MG PO SCH (08:51)
[2018-02-03] MEDS: oxyCODONE 10 mg ER Tab (oxyCONTIN) PO SCH (08:52)
[2018-02-03] MEDS ORDERED: Metoprolol Succinate 25 mg XL Tab PO SCH (09:00)
[2018-02-03] MEDS ORDERED: LETROZOLE 2.5 MG PO SCH (09:00)
[2018-02-03] MEDS ORDERED: Pantoprazole 40 mg EC Tab PO SCH (09:00)
--- NOTE | 2018-02-03 09:48 | CP.PCM.HP ---
History of Present Illness - History of Present Illness History of Present Illness: 52 y/o female with PMH of metastatic breast cancer on chemo with right humeral fracture after a fall at home on August presented for R total shoulder replacement. Not candidate for surgery at that time. Patient states moderated pain at his time. Patient also has PMH of HTN, DVT and gastritis. Today patient denies recent fever, nausea, vomiting, no CP or sob, no urinary sx or BM habits changes. PMH: HTN, DVT, metastatic breast cancer PSH: none Meds as bellow allergy: latex FMH: denies SH: ex smoker, no etoh or drugs Present on Admission - Present on Admission Any Indicators Present on Admission: No Review of Systems - Review of Systems All systems: reviewed and no additional remarkable complaints except (HPI) Past Patient History - Infectious Disease Hx of Infectious Diseases: None - Past Medical History & Family History Past Medical History?: Yes - Past Social History Smoking Status: Former Smoker - CARDIAC Hx Cardiac Disorders: Yes Hx Angina: No Hx Cardia Arrhythmia: Yes Hx Circulatory Problems: No Hx Congestive Heart Failure: No Hx Heart Attack: No Hx Heart Murmur: No Hx Heart Transplant: No Hx Hypercholesterolemia: Yes Hx Hypertension: Yes Hx Hypotension: No Hx Internal Defibrillator: No Hx Mitral Valve Prolapse: No Hx Pacemaker: No Hx Peripheral Edema: No Hx Peripheral Vascular Disease: No - PULMONARY Hx Respiratory Disorders: No Hx Asthma: No Hx Bronchitis: No Hx Chronic Obstructive Pulmonary Disease (COPD): No Hx Emphysema: No Hx Lung Cancer: No Hx Pneumonia: Yes Hx Pulmonary Edema: No Hx Pulmonary Embolism: No Hx Sleep Apnea: No Hx Tuberculosis: No - NEUROLOGICAL Hx Neurological Disorder: Yes Hx Alzheimer's Disease: No HX Cerebrovascular Accident: No Hx Dementia: No Hx Dizziness: No Hx Meningitis: No Hx Migraine: No Hx Multiple Sclerosis: No Hx Paralysis: No Hx Parkinson's Disease: No Hx Seizures: No Hx Syncope: No Hx Transient Ischemic Attacks (TIA): No Hx Vertigo: No - HEENT Hx HEENT Problems: Yes Hx Blind: No Hx Cataracts: Yes Hx Deafness: No Hx Difficulty Chewing: No Hx Epistaxis: No Hx Glaucoma: No Hx Macular Degeneration: No Other/Comment: wears eyeglasses - RENAL Hx Chronic Kidney Disease: No Hx Kidney Stones: No Hx Neurogenic Bladder: No Hx Pyelonephritis: No Hx Renal (Kidney) Cancer: No Hx Renal Failure: No - ENDOCRINE/METABOLIC Hx Endocrine Disorders: No Hx Adrenal Cancer: No Hx Diabetes Insipidus: No Hx Diabetes Mellitus Type 1: No Hx Diabetes Mellitus Type 2: No Hx Hyperthyroidism: No Hx Hypothyroidism: No Hx Systemic Lupus Erythematosus: No - HEMATOLOGICAL/ONCOLOGICAL Hx Blood Disorders: No Hx AIDS: No Hx Anemia: Yes Hx Blood Transfusions: No Hx Blood Transfusion Reaction: No Hx Bruising: No Hx Cancer: Yes (brain metastasis,liver) Hx Chemotherapy: Yes (and radiation) Hx Cirrhosis: No Hx Gum Bleeding: No Hx Hemophilia: No Hx Hepatitis A: No Hx Hepatitis B: No Hx Hepatitis C: No Hx Human Immunodeficiency Virus (HIV): No Hx Leukemia: No Hx Metastesis: Yes Hx Shingles: No Hx Sickle Cell Disease: No Hx Unexplained Bleeding: No Hx von Willebrand's Disease: No Other/Comment: Breast Ca with mets to lung, liver and bone - INTEGUMENTARY Hx Dermatological Problems: No Hx Basil Cell: No Hx Tapia: No Hx Cellulitis: No Hx Eczema: No Hx Melanoma: No Hx Psoriasis: No Hx Squamous Cell: No - MUSCULOSKELETAL/RHEUMATOLOGICAL Hx Musculoskeletal Disorders: No Hx Arthritis: No Hx Back Pain: Yes Hx Degenerative Joint Disease: No Hx Falls: Yes Hx Fractures: Yes (right arm) Hx Gout: No Hx Herniated Disk: No Hx Myasthenia Gravis: No Hx Osteoarthritis: No Hx Osteomyelitis: No Hx Osteoporosis: No Hx Rhabdomyolysis: No Hx Rheumatoid Arthritis: No Hx Spinal Stenosis: No Hx Unsteady Gait: No Other/Comment: bone mets - GASTROINTESTINAL Hx Gastrointestinal Disorders: No Hx Bowel Surgery: No Hx Clostridium Difficile: No Hx Colitis: No Hx Colostomy: No Hx Crohn's Disease: No Hx Diverticulitis: No Hx Esophageal Varices: No Hx Fatty Liver Disease: No Hx Gall Bladder Disease: No Hx Gastritis: Yes Hx Gastroesophageal Reflux: No Hx Hemorrhoids: No Hx Ileostomy: No Hx Irritable Bowel: No Hx Liver Failure: No Hx Pancreatitis: No HX Swallowing Problems: No Hx Ulcer: No - GENITOURINARY/GYNECOLOGICAL Hx Genitourinary Disorders: No Hx Bladder Cancer: No Hx Bladder Stone: No Hx Cervical Cancer: No Hx Hematuria: No Hx Incontinence: No Hx Ovarian Cancer: No Hx Postmenopausal Bleeding: No Hx Reproductive Disorders: No Hx Sexually Transmitted Disorders: No Hx Uterine Cancer: No Hx Urinary Tract Infection: Yes - PSYCHIATRIC Hx Emotional Abuse: No Hx Physical Abuse: No - SURGICAL HISTORY Hx Surgeries: Yes Hx Abdominal Aortic Aneurysm Repair: No Hx Amputation: No Hx Angiogram: No Hx Angioplasty: No Hx Appendectomy: No Hx Arteriovenous Shunt: No Hx Arthroscopy: No Hx Bile Duct Stent: No Hx Breast Biopsy: No Hx Cataract Extraction: No Hx Cardiac Catheterization: No Hx Carotid Endarterectomy: No Hx Section: No Hx Cholecystectomy: No Hx Coronary Artery Bypass Graft: No Hx Coronary Stent: No Hx Dilation and Curettage: No Hx Eye Surgery: No Hx Femoral-Popliteal Bypass Graft: No Hx Gastric Bypass Surgery: No Hx Herniorrhaphy: No Hx Hysterectomy: No Hx Joint Replacement: No Hx Kidney Transplant: No Hx Liver Transplant: No Hx Mastectomy: Yes (left) Hx Musculoskeletal Surgery: No Hx Open Heart Surgery: No Hx Open Reduction Internal Fixation: No Hx Orthopedic Surgery: No Hx Parathyroidectomy: No Hx Penile Implant: No Hx Pulmonary Surgery: No Hx Splenectomy: No Hx Thyroidectomy: No Hx Tonsillectomy: No Hx Tubal Ligation: Yes Hx Valve Replacement: No Hx Vascular Surgery: No Hx Vascular Access Device: No Other/Comment: portacath placement - ANESTHESIA Hx Anesthesia: Yes Hx Anesthesia Reactions: No Hx Malignant Hyperthermia: No Meds Home Medications: Home Medication List Medication Instructions Recorded Confirmed Type Ondansetron ODT [Zofran ODT] 4 mg PO Q8 #20 odt 02/03/18 Rx oxyCODONE [oxyCONTIN Extended 10 mg PO Q12 #10 tab 02/03/18 Rx Release Tab] oxyCODONE/Acetaminophen [Percocet 1 tab PO Q4 PRN #20 tab 02/03/18 Rx 5/325 mg Tab] Allergies/Adverse Reactions: Allergies Allergy/AdvReac Type Severity Reaction Status Date / Time latex Allergy BLISTER Verified 02/02/18 09:08 Physical Exam - Constitutional Appears: No Acute Distress - Head Exam Head Exam: NORMAL INSPECTION - Eye Exam Eye Exam: EOMI - Respiratory Exam Respiratory Exam: Clear to Auscultation Bilateral, NORMAL BREATHING PATTERN - Cardiovascular Exam Cardiovascular Exam: REGULAR RHYTHM, +S1, +S2 - GI/Abdominal Exam GI & Abdominal Exam: Normal Bowel Sounds, Soft. absent: Distended, Tenderness - Extremities Exam Extremities exam: Negative for: calf tenderness, pedal edema Additional comments: R shoulder brace noted in place, able to move fingers, sensation intact - Neurological Exam Neurological exam: Alert, Oriented x3 Results - Vital Signs Recent Vital Signs: Last Vital Signs Temp 98.0 F 02/03/18 08:21 Pulse 97 H 02/03/18 08:21 Resp 20 02/03/18 08:21 BP 115/68 02/03/18 08:21 Pulse Ox 95 02/03/18 08:21 - Labs Result Diagrams: 02/02/18 10:58 02/02/18 10:58 Labs: Laboratory Results - last 24 hr 02/02/18 02/02/18 02/02/18 10:47 10:58 10:58 WBC 6.6 RBC 3.65 L Hgb 12.7 Hct 38.0 MCV 104.3 H MCH 34.8 H MCHC 33.4 RDW 13.5 Plt Count 285 Sodium 140 Potassium 4.1 Chloride 108 H Carbon Dioxide 24 Anion Gap 12 BUN 13 Creatinine 0.7 Est GFR ( Amer) > 60 Est GFR (Non-Af Amer) > 60 Random Glucose 94 Calcium 9.4 Blood Type A POSITIVE Antibody Screen Negative BBK History Checked Patient has bt Assessment & Plan - Assessment and Plan (Free Text) Assessment: 52 yo female with R humerus fracture s/p reverse R total shoulder replacement, POD 1 Plan: - doing well - pain management - Ortho on board - DVT prophylaxis - Home meds resumed - Cleared by PT for discharge Case seen and examined with Dr Gonsalez
[2018-02-03 11:59] VITALS: BP 128/60; PULSE 72
--- NOTE | 2018-02-03 13:44 | CP.PCM.DIS ---
Provider - Provider Date of Admission: 02/02/18 17:32 Attending physician: Kurtis Gonsalez MD Primary care physician: Kurtis Gonsalez MD Time Spent in preparation of Discharge (in minutes): 37 Diagnosis - Discharge Diagnosis (1) Closed fracture of right proximal humerus Status: Acute (2) Metastatic breast cancer Status: Acute (3) HTN (hypertension) Status: Chronic Hospital Course - Lab Results Lab Results: Most Recent Lab Values WBC 6.6 K/uL (4.8-10.8) 02/02/18 10:58 RBC 3.65 Mil/uL (3.80-5.20) L 02/02/18 10:58 Hgb 12.7 g/dL (12.0-16.0) 02/02/18 10:58 Hct 38.0 % (34.0-47.0) 02/02/18 10:58 MCV 104.3 fl (81.0-99.0) H 02/02/18 10:58 MCH 34.8 pg (27.0-31.0) H 02/02/18 10:58 MCHC 33.4 g/dL (33.0-37.0) 02/02/18 10:58 RDW 13.5 % (11.5-14.5) 02/02/18 10:58 Plt Count 285 K/uL (130-400) 02/02/18 10:58 Sodium 140 mmol/l (132-148) 02/02/18 10:58 Potassium 4.1 MMOL/L (3.6-5.0) 02/02/18 10:58 Chloride 108 mmol/L (98-107) H 02/02/18 10:58 Carbon Dioxide 24 mmol/L (22-30) 02/02/18 10:58 Anion Gap 12 (10-20) 02/02/18 10:58 BUN 13 mg/dl (7-17) 02/02/18 10:58 Creatinine 0.7 mg/dl (0.7-1.2) 02/02/18 10:58 Est GFR ( Amer) > 60 02/02/18 10:58 Est GFR (Non-Af Amer) > 60 02/02/18 10:58 Random Glucose 94 mg/dL (65-105) 02/02/18 10:58 Calcium 9.4 mg/dL (8.4-10.2) 02/02/18 10:58 Blood Type A POSITIVE 02/02/18 10:47 Antibody Screen Negative 02/02/18 10:47 BBK History Checked Patient has bt 02/02/18 10:47 - Hospital Course Hospital Course: 52 y/o female admitted for Reverse R TSR for closed fracture of proximal humerus sustained after fall on last August. POD 1, patient tolerated well the procedure, pain well controlled with meds. Has a hx of metastatic breast cancer to bone and brain. Doing well after surgery, PT cleared for discharge. Patient stable for discharge. Pain medicines Rx provided and instructions to f/u with PMD and Ortho surgery. Discharge Exam - Head Exam Head Exam: NORMAL INSPECTION - Respiratory Exam Respiratory Exam: Clear to PA & Lateral, NORMAL BREATHING PATTERN - Cardiovascular Exam Cardiovascular Exam: REGULAR RHYTHM, +S1, +S2 - GI/Abdominal Exam GI & Abdominal Exam: Normal Bowel Sounds, Soft. absent: Distended, Tenderness - Extremities Exam Additional comments: R shoulder cast in place, able to move fingers, sensation intact. - Neurological Exam Neurological exam: Alert, CN II-XII Intact, Oriented x3 - Skin Skin Exam: Dry, Warm Discharge Plan - Discharge Medications Prescriptions: Ondansetron ODT [Zofran ODT] 4 mg PO Q8 #20 odt oxyCODONE [oxyCONTIN Extended Release Tab] 10 mg PO Q12 #10 tab oxyCODONE/Acetaminophen [Percocet 5/325 mg Tab] 1 tab PO Q4 PRN #20 tab PRN Reason: Pain, Mild (1-3) - Follow Up Plan Condition: GOOD Disposition: HOME/ ROUTINE Additional Instructions: F/u with PMD next week f/u with Ortho surgery 4-6 weeks Referrals: Kurtis Gonsalez MD [Primary Care Provider] -
== END 2018-02-03 15:15 | disposition home or self-care (01) | DRG 315 ==
LOC: H.OPSURG 07:32 → H.MEDSURG1 17:32
PROVIDERS: ADMIT Family Medicine; ATTEND Family Medicine
PROC: 3E0T3BZ Introduction of Anesthetic Agent into Peripheral Nerves and Plexi, Percutaneous Approach (ICD-10-PCS; 2018-02-02)
PROC: 3E0T33Z Introduction of Anti-inflammatory into Peripheral Nerves and Plexi, Percutaneous Approach (ICD-10-PCS; 2018-02-02)
PROC: 0RRJ00Z Replacement of Right Shoulder Joint with Reverse Ball and Socket Synthetic Substitute, Open Approach (ICD-10-PCS; principal; 2018-02-02 13:15)
PROC: 0LS30ZZ Reposition Right Upper Arm Tendon, Open Approach (ICD-10-PCS; 2018-02-02 13:15)
DX: S42.291P Other displaced fracture of upper end of right humerus, subsequent encounter for fracture with malunion (principal); I10 Essential (primary) hypertension; X58.XXXD Exposure to other specified factors, subsequent encounter; E78.00 Pure hypercholesterolemia, unspecified; K29.70 Gastritis, unspecified, without bleeding; Z85.830 Personal history of malignant neoplasm of bone; Z85.3 Personal history of malignant neoplasm of breast; Z86.718 Personal history of other venous thrombosis and embolism; Z87.01 Personal history of pneumonia (recurrent); Z87.440 Personal history of urinary (tract) infections; Z91.040 Latex allergy status; Z87.891 Personal history of nicotine dependence